=== PATIENT | female | born 1935 | race Caucasian/White ===

== ENCOUNTER 2017-04-07 04:06 | Inpatient (IN) | payer MEDICARE, OTHER ==
--- NOTE | 2017-04-07 04:32 | ED ---
SOB HPI - General Stated Complaint: MOO Time Seen by Provider: 04/07/17 04:08 Source: EMS Mode of arrival: EMS Limitations: altered mental status (There appears to be some underlying dementia or acute delirium.) - History of Present Illness Initial Comments: This patient is an 82-year-old woman sent from [facility] for shortness of breath. Patient reportedly had oxygen saturations in the 70s and was breathing more rapidly. The patient does complain of dyspnea. She is not able to fully characterize how long this is been going on. The patient is denying pain. She denies chest, back, abdomen, head pain or extremity pain MD Complaint: shortness of breath -: hour(s) - Related Data Allergies Allergy/AdvReac Type Severity Reaction Status Date / Time codeine AdvReac Unknown Verified 04/07/17 04:20 NSAIDS (Non-Steroidal AdvReac Unknown Verified 04/07/17 04:20 Anti-Inflamma Penicillins AdvReac Unknown Verified 04/07/17 04:20 Quinolones AdvReac Unknown Verified 04/07/17 04:20 strawberry AdvReac Unknown Verified 04/07/17 04:20 Sulfa (Sulfonamide AdvReac Unknown Verified 04/07/17 04:20 Antibiotics) tree nut [Nut] AdvReac Unknown Verified 04/07/17 04:20 Review of Systems ROS Statement: Those systems with pertinent positive or pertinent negative responses have been documented in the HPI. ROS Other: All systems not noted in ROS Statement are negative. Limitations: ROS unobtainable due to patients medical condition Respiratory: Reports: dyspnea Cardiovascular: Denies: chest pain Gastrointestinal: Denies: abdominal pain Musculoskeletal: Denies: back pain Neurological: Denies: headache Past Medical History Past Medical History: Heart Failure, COPD, CVA/TIA, GERD/Reflux, Hyperlipidemia , Hypertension, Thyroid Disorder History of Any Multi-Drug Resistant Organisms: ESBL Date of last positivie culture/infection: 01/08/17 MDRO Source:: URINE E.COLI Past Surgical History: Orthopedic Surgery Additional Past Surgical History / Comment(s): right below knee amputation Past Psychological History: Anxiety, Depression Smoking Status: Never smoker Past Alcohol Use History: None Reported Past Drug Use History: None Reported General Exam Limitations: no limitations General appearance: alert, in distress (Patient is in mild respiratory distress) , obese Head exam: Present: atraumatic, normocephalic ENT exam: Present: mucous membranes dry Respiratory exam: Present: respiratory distress, rhonchi. Absent: wheezes, rales, stridor Cardiovascular Exam: Present: regular rate, normal rhythm, normal heart sounds. Absent: systolic murmur, diastolic murmur, rubs, gallop GI/Abdominal exam: Present: soft. Absent: tenderness, guarding, rebound Extremities exam: Present: pedal edema, other (Right leg above-knee amputation) Neurological exam: Present: alert. Absent: oriented X3 (Is oriented to person and recognizes she is in the hospital,), motor sensory deficit ( however did not know the date) Skin exam: Present: warm, dry, intact, normal color. Absent: rash Course Vital Signs 04/07/17 04:08 Temperature 97.7 F Pulse Rate 97 Respiratory 26 H Rate Blood Pressure 163/69 O2 Sat by Pulse 88 L Oximetry Medical Decision Making - EKG Data -: EKG Interpreted by Wy EKG shows normal: axis ( approximately. left axis deviation ) Interpretation: LVH (With repolarization abnormality), other (Patient's underlying rhythm appears to be atrial flutter with variable conduction, the rate 104 bpm. there appears to be old it anteroseptal infarct) Disposition Referrals: Rosa M Steward MD [Primary Care Provider] - 1-2 days
[2017-04-07 04:46] LABS: Basophils # (A) 0.1 k/uL (0-0.2); Basophils % (A) 0 %; CH 29.4; CHCM 31.3; Eosinophils # (A) 0.1 k/uL (0-0.7); Eosinophils % (A) 1 %; HCT 35.8 % (34.0-46.0); HGB 11.3 gm/dL (11.4-16.0); Hypochromasia Slight; Luc # (Auto) 0.14; Luc % (Auto) 1; Lymphocytes # (A) 0.4 k/uL (1.0-4.8); Lymphocytes % (A) 2 %; MCH 29.9 pg (25.0-35.0); MCHC 31.6 g/dL (31.0-37.0); MCV 94.6 fL (80.0-100.0); Mean Platelet Volume 7.1; Monocytes # (A) 0.5 k/uL (0-1.0); Monocytes % (A) 3 %; Neutrophils # (A) 17.5 k/uL (1.3-7.7); Neutrophils % (A) 94 %; RBC 3.78 m/uL (3.80-5.40); RDW 15.2 % (11.5-15.5); WBC 18.7 k/uL (3.8-10.6); WBC (Perox) 19.03
[2017-04-07 04:55] LABS: INR 1.3 (<1.2); Partial Thromboplastin Time 24.7 sec (22.0-30.0); Prothrombin Time 12.6 sec (9.0-12.0)
[2017-04-07 05:02] LABS: Amorphous Sediment,Urine Rare /hpf; Appearance,Urine Turbid (Clear); Bilirubin,Urine Negative (Negative); Glucose,Urine (UA) Negative (Negative); Ketones,Urine Negative (Negative); Leukocyte Esterase,Urine Large (Negative); Mucus,Urine Many /hpf; Nitrite,Urine Negative (Negative); PH, Urine 8.5 (5.0-8.0); Particle Count 380168; Protein,Urine 2+ (Negative); RBC,Urine 4 /hpf (0-5); Specific Gravity,Urine 1.014 (1.001-1.035); UA Billing (MACRO vs. MICRO) MICRO; Urobilinogen,Urine <2.0 mg/dL (<2.0); WBC,Urine 79 /hpf (0-5)
[2017-04-07 05:08] LABS: ALT 70 U/L (9-52); AST 99 U/L (14-36); Alkaline Phosphatase 532 U/L (38-126); Anion Gap 9 mmol/L; Blood Urea Nitrogen 21 mg/dL (7-17); Calcium 8.7 mg/dL (8.4-10.2); Carbon Dioxide 32 mmol/L (22-30); Chloride 95 mmol/L (98-107); Glucose 154 mg/dL (74-99); Non-African American GFR(MDRD) >60 (>60 ml/min/1.73 sqM); Potassium 5.4 mmol/L (3.5-5.1); Sodium 136 mmol/L (137-145); Total Bilirubin 1.1 mg/dL (0.2-1.3); Total Protein 7.5 g/dL (6.3-8.2)
[2017-04-07] MEDS: SODIUM CHLORIDE 0.9% 500 ML IV SCH ×3 (05:09→11:37)
--- NOTE | 2017-04-07 05:24 | XR ---
EXAM: XR Chest, 1 View CLINICAL HISTORY: Fever TECHNIQUE: Frontal view of the chest. COMPARISON: No relevant prior studies available. FINDINGS: Lungs: Moderate scattered patchy airspace opacities throughout both lungs, more on the right. Pleural space: Cannot rule out left pleural effusion. No pneumothorax. Heart: Unremarkable. No cardiomegaly. Mediastinum: Unremarkable. Bones/joints: Osteopenia. Moderate degenerative changes. Vasculature: Aorta is calcified. IMPRESSION: Lung findings suggest pneumonia, worse on the right. Followup to resolution is recommended to rule out potential underlying neoplastic/metastatic disease.
[2017-04-07] MEDS ORDERED: AZITHROMYCIN 500 MG in SODIUM CHLORIDE 0.9% 250 ML IVPB STA (05:46)
[2017-04-07] MEDS ORDERED: TOBRAMYCIN PER PHARMACY MISCELLANE PRN (05:46)
[2017-04-07] MEDS ORDERED: PNEUMONIA PROTOCOL UTILIZED 1 EACH MISC PO PRN ×2 (05:46→05:55)
[2017-04-07] MEDS ORDERED: ALBUTEROL NEBULIZED 2.5 MG/3 ML INHALATION PRN (05:55)
[2017-04-07] MEDS: CLINDAMYCIN 600 MG in DEXTROSE 5% IN WATER 50 ML IVPB SCH ×6 (06:02→23:47)
[2017-04-07] MEDS ORDERED: ALBUTEROL NEBULIZED 2.5 MG/3 ML INHALATION STA (06:12)
[2017-04-07] MEDS ORDERED: HEPARIN SODIUM,PORCINE 5,000 UNIT/ML 1 ML VIAL SQ SCH (08:00)
[2017-04-07] MEDS ORDERED: SODIUM CHLORIDE 0.9% IVPB SCH (08:00)
[2017-04-07] MEDS ORDERED: TOBRAMYCIN SULFATE IVPB SCH (08:00)
[2017-04-07] MEDS ORDERED: DOCUSATE 100 MG CAP PO PRN (09:43)
[2017-04-07] MEDS ORDERED: ARTIFICIAL TEARS-HYPROMELLOSE DROPS 15 ML BTL BOTH EYES PRN (09:43)
[2017-04-07] MEDS ORDERED: NON-FORMULARY DRUG (Acetaminophen [Tylenol 8 Hour] 650 MG) PO PRN (09:43)
[2017-04-07] MEDS ORDERED: ACETAMINOPHEN TAB 500 MG TAB PO PRN (09:43)
[2017-04-07] MEDS ORDERED: TALC TOPICAL SCH (09:45)
[2017-04-07] MEDS ORDERED: GLYCERIN TOPICAL SCH (09:45)
[2017-04-07] MEDS ORDERED: [UNRECOGNIZED DRUG - OTHER] TOPICAL SCH (09:45)
[2017-04-07] MEDS ORDERED: ZINC OXIDE TOPICAL SCH (09:45)
[2017-04-07] MEDS ORDERED: SODIUM POLYSTYRENE SULFONATE 15 GM/60 ML BOTTLE PO STA (09:56)
[2017-04-07] MEDS: SODIUM CHLORIDE 0.9% 1,000 ML IV SCH ×2 (11:27→15:03)
[2017-04-07] MEDS: NYSTATIN 100,000 UNIT/GM POWD 15 GM TOPICAL SCH ×2 (11:38→21:51)
[2017-04-07] MEDS: HYDROcodone/APAP 5-325MG 1 EACH TAB PO PRN (13:23)
[2017-04-07] MEDS: ALPRAZolam 0.25 MG TAB PO PRN ×2 (13:24→21:48)
--- NOTE | 2017-04-07 14:22 | P.CRDCN ---
History of Present Illness Consult date: 04/07/17 Reason for Consult (text): atrial flutter Chief complaint: shortness of breath History of present illness: This is a pleasant 82-year-old female who resides at an extended care facility. Presented to the emergency department with complaints of increasingly worsening shortness of breath. She has a known history of CHF, hypertension, GERD, COPD and hyperlipidemia. She also has a prior history of a right BKA and likely history of atrial fibrillation/atrial flutter as she is on Eliquis. Chest x-ray on admission showed bilateral pneumonia worse on the right than the left. Her WBCs are elevated. She has been in atrial flutter with a controlled ventricular response. Laboratory values showed a BUN of 21, creatinine 0.9. One set of troponin has been drawn thus far and is slightly elevated at 0.076. Upon examination, patient is resting in bed. Says she is breathing quite a bit better however remains short of breath. She denies any complaints of chest discomfort or palpitations. She does complain of left lower extremity edema, but has been ongoing for quite some time. Past Medical History Past Medical History: Heart Failure, COPD, CVA/TIA, GERD/Reflux, Hyperlipidemia , Hypertension, Thyroid Disorder History of Any Multi-Drug Resistant Organisms: ESBL Date of last positivie culture/infection: 01/08/17 MDRO Source:: URINE E.COLI Past Surgical History: Orthopedic Surgery Additional Past Surgical History / Comment(s): right below knee amputation Past Psychological History: Anxiety, Depression Smoking Status: Never smoker Past Alcohol Use History: None Reported Past Drug Use History: None Reported Medications and Allergies Home Medications Medication Instructions Recorded Confirmed Type ALPRAZolam [Xanax] 0.25 mg PO Q8H PRN 04/07/17 04/07/17 History Acetaminophen Tab [Tylenol Tab] 500 mg PO Q6H PRN 04/07/17 04/07/17 History Acetaminophen [Tylenol 8 Hour] 650 mg PO Q6H PRN 04/07/17 04/07/17 History Allopurinol [Zyloprim] 100 mg PO DAILY@0900 04/07/17 04/07/17 History Amiodarone [Cordarone] 200 mg PO DAILY@0900 04/07/17 04/07/17 History Apixaban [Eliquis] 5 mg PO BID@0900,2100 04/07/17 08/04/17 History Digoxin [Lanoxin] 125 mcg PO DAILY@59904/07/17 04/07/17 History Diltiazem HCl 60 mg PO TID@0900,1300,209904/07/17 04/07/17 History Docusate [Colace] 100 mg PO Q24H PRN 04/07/17 04/07/17 History Fluticasone Nasal [place] [Flonase 1 spray EA NOSTRIL BID@0900,209904/07/1704/07 History Nasal [place]] Fluticasone/Vilanterol [Breo 1 puff INHALATION RT-DAILY@129904/07/17 04/07/17 History Ellipta 100-25 Mcg Inhaler] Furosemide [Lasix] 20 mg PO DAILY@59904/07/17 04/07/17 History Furosemide [Lasix] 40 mg PO MOWEFR@89904/07/17 04/07/17 History HYDROcodone/APAP 5-325MG [[place] 1 tab PO Q8H PRN 04/07/17 04/07/17 History 5-325] Ipratropium-Albuterol Nebulize 3 ml INHALATION RT-BID@0900,209904/07/17 History [Duoneb 0.5 mg-3 mg/3 ml Soln] Levothyroxine Sodium [Synthroid] 50 mcg PO DAILY@59904/07/17 04/07/17 History Liquitears Solution 2 drops BOTH EYES Q4H PRN 04/07/17 04/07/17 History Magnesium Oxide [Mag-Ox] 400 mg PO BID@0900,209904/07/17 04/07/17 History Miconazole Nitrate [Lotrimin AF 1 applic TOPICAL Q12H 04/07/17 04/07/17 History Powder] Montelukast Sodium [Singulair] 10 mg PO HS@209904/07/17 04/07/17 History Omeprazole [PriLOSEC] 20 mg PO BID@0900,209904/07/17 04/07/17 History Polyethylene Glycol 3350 [Miralax] 17 gm PO Q24H PRN 04/07/17 04/07/17 History Potassium Chloride [Klor-Con 20] 40 meq PO DAILY@0900 04/07/17 04/07/17 History Pravastatin Sodium [Pravachol] 20 mg PO HS@2100 04/07/17 04/07/17 History Pregabalin [Lyrica] 50 mg PO TID@0600,1400,2200 04/07/17 04/07/17 History Sennosides [Senna] 8.6 mg PO DAILY@0900 04/07/17 04/07/17 History Umeclidinium [place] [Incruse 1 puff INHALATION RT-DAILY@0904/07/17 04/07/17 History Ellipta] Zinc/Talc/Glycerin/Distilled Water 1 applic TOPICAL DIRECTED 04/07/17 History guaiFENesin-DM 100-10MG/5ML 10 ml PO Q6H PRN 04/07/17 04/07/17 History [Robitussin DM] Allergies Allergy/AdvReac Type Severity Reaction Status Date / Time codeine Allergy Unknown Verified 04/07/17 07:06 NSAIDS (Non-Steroidal Allergy Unknown Verified 04/07/17 07:06 Anti-Inflamma peanut Allergy Unknown Verified 04/07/17 07:06 Penicillins Allergy Unknown Verified 04/07/17 07:06 Quinolones Allergy Unknown Verified 04/07/17 07:06 strawberry Allergy Unknown Verified 04/07/17 07:06 Sulfa (Sulfonamide Allergy Unknown Verified 04/07/17 07:06 Antibiotics) tree nut [Nut] Allergy Unknown Verified 04/07/17 07:06 seeds Allergy Unknown Uncoded 04/07/17 07:06 Physical Exam Vitals: Vital Signs Temp Pulse Pulse Resp BP BP Pulse Ox 04/07/17 07:28 94 L 04/07/17 07:10 96.9 F L 68 20 104/53 93 L 04/07/17 07:01 97.7 F 81 16 129/60 95 04/07/17 06:49 74 14 129/60 94 L 04/07/17 06:39 88 14 144/60 95 04/07/17 06:38 82 04/07/17 06:23 100 04/07/17 06:07 97.3 F L 112 H 21 151/63 95 04/07/17 05:15 84 23 145/59 95 04/07/17 04:42 26 H 04/07/17 04:37 91 93 L 04/07/17 04:08 97.7 F 97 26 H 163/69 88 L Intake and Output 04/06/17 04/07/17 04/07/17 22:59 06:59 14:59 Intake Total 40 Balance 40 Intake: Intake, IV Titration 40 Amount Sodium Chloride 0.9% 1, 40 000 ml @ 100 mls/hr IV . Q10H [facility] Rx#:[id number] Other: Weight 113.398 kg PHYSICAL EXAMINATION: HEENT: Head is atraumatic, normocephalic. Pupils equal, round. Neck is supple. There is no elevated jugular venous pressure. HEART EXAMINATION: Heart sounds irregularly irregular, S1 and S2 normal with a systolic ejection murmur. CHEST EXAMINATION: Lungs are clear to auscultation and precussion. No chest wall tenderness is noted on palpation or with deep breathing. ABDOMEN: Soft, obese, nontender. Bowel sounds are heard. No organomegaly noted. EXTREMITIES: Diminished peripheral pulses with evidence of 2+ left lower extremity edema and no calf tenderness noted, right BKA noted. NEUROLOGIC patient is awake, alert and oriented x3. . Results 04/07/17 04:30 04/07/17 04:30 Cardiac Enzymes 04/07/17 04/07/17 Range/Units 04:30 04:30 AST 99 H (14-36) U/L Troponin I 0.076 H* (0.000-0.034) ng/mL Coagulation 04/07/17 Range/Units 04:30 PT 12.6 H (9.0-12.0) sec APTT 24.7 (22.0-30.0) sec CBC 04/07/17 Range/Units 04:30 WBC 18.7 H (3.8-10.6) k/uL RBC 3.78 L (3.80-5.40) m/uL Hgb 11.3 L (11.4-16.0) gm/dL Hct 35.8 (34.0-46.0) % Plt Count 216 (150-450) k/uL Comprehensive Metabolic Panel 04/07/17 Range/Units 04:30 Sodium 136 L (137-145) mmol/L Potassium 5.4 H (3.5-5.1) mmol/L Chloride 95 L (98-107) mmol/L Carbon Dioxide 32 H (22-30) mmol/L BUN 21 H (7-17) mg/dL Creatinine 0.90 (0.52-1.04) mg/dL Glucose 154 H (74-99) mg/dL Calcium 8.7 (8.4-10.2) mg/dL AST 99 H (14-36) U/L ALT 70 H (9-52) U/L Alkaline Phosphatase 532 H (38-126) U/L Total Protein 7.5 (6.3-8.2) g/dL Albumin 3.0 L (3.5-5.0) g/dL Current Medications Generic Name Dose Route Start Last Admin Trade Name Freq PRN Reason Stop Dose Admin Acetaminophen 500 mg 04/07/17 09:43 Tylenol Tab PO Q6H PRN Fever Hydrocodone Bitart/Acetaminophen 1 each 04/07/17 09:43 04/07/17 13:23 [place] 5-325 PO 1 each Q8H PRN Administration Pain Albuterol Sulfate 2.5 mg 04/07/17 05:55 04/07/17 06:22 Ventolin Nebulized INHALATION 2.5 mg RT-Q4H PRN Administration Shortness Of Breath Or Wheezing Albuterol/Ipratropium 3 ml 04/07/17 21:00 Duoneb 0.5 Mg-3 Mg/3 Ml Soln INHALATION RT-BID@0900,2100 [facility] Allopurinol 100 mg 04/08/17 09:00 Zyloprim PO DAILY@0900 [facility] Alprazolam 0.25 mg 04/07/17 09:43 04/07/17 13:24 Xanax PO 0.25 mg Q8H PRN Administration Anxiety Amiodarone HCl 200 mg 04/08/17 09:00 Cordarone PO DAILY@0900 [facility] Apixaban 5 mg 04/07/17 21:00 Eliquis PO BID@0900,2100 [facility] Artificial Tears 2 drops 04/07/17 09:43 Artificial Tear Drops BOTH EYES Q4H PRN dry eyes Digoxin 125 mcg 04/08/17 06:00 Lanoxin PO DAILY@0600 [facility] Diltiazem HCl 60 mg 04/07/17 13:00 Cardizem Oral PO TID@0900,1300,2100 [facility] Docusate Sodium 100 mg 04/07/17 09:43 Colace PO Q24H PRN Constipation Fluticasone Propionate 1 spray 04/07/17 21:00 Flonase Nasal [place] EA NOSTRIL BID@0900,2100 [facility] Furosemide 40 mg 04/10/17 09:00 Lasix PO MOWEFR@0900 [facility] Clindamycin Phosphate 600 mg/ 54 mls @ 100 mls/hr 04/07/17 08:00 04/07/17 06: 02 Dextrose/Water IVPB 04/17/17 08:01 100 mls/hr Q8HR [facility] Administration Sodium Chloride 1,000 mls @ 100 mls/hr 04/07/17 06:00 04/07/17 11:27 Saline 0.9% IV Not Given .Q10H [facility] Tobramycin Sulfate 170 mg/ 104.25 mls @ 104.25 mls/hr 04/07/17 08:00 11:37 Sodium Chloride IVPB 104.25 mls/hr Q24H [facility] Administration Levothyroxine Sodium 50 mcg 04/08/17 06:00 Synthroid PO DAILY@0600 [facility] Magnesium Oxide 400 mg 04/07/17 21:00 Mag-Ox PO BID@0900,2100 [facility] Miscellaneous Information 1 each 04/07/17 05:46 Pharmacy To Dose Tobramycin MISCELLANE DIRECTED PRN Per Protocol Miscellaneous Information 1 each 04/07/17 05:55 Pneumonia Protocol Utilized PO ONCE PRN Per Protocol Montelukast Sodium 10 mg 04/07/17 21:00 Singulair PO HS@2100 [facility] Non-Formulary Medication 1 applic 04/07/17 09:45 Zinc/Talc/Glycerin/Distilled Water TOPICAL DIRECTED [facility] Nystatin 1 applic 04/07/17 09:45 04/07/17 11:38 Mycostatin Powder TOPICAL 1 applic Q12H [facility] Administration Pantoprazole Sodium 40 mg 04/07/17 21:00 Protonix PO BID@0900,2100 [facility] Pravastatin Sodium 20 mg 04/07/17 21:00 Pravachol PO HS@2100 [facility] Pregabalin 50 mg 04/07/17 14:00 Lyrica PO TID@0600,1400,2200 [facility] Tiotropium [place] 1 puff 04/08/17 09:00 Spiriva INHALATION RT-DAILY@0900 [facility] Intake and Output 04/06/17 04/07/17 04/07/17 22:59 06:59 14:59 Intake Total 40 Balance 40 Intake: Intake, IV Titration 40 Amount Sodium Chloride 0.9% 1, 40 000 ml @ 100 mls/hr IV . Q10H [facility] Rx#:[id number] Other: Weight 113.398 kg 04/07/17 04:30 04/07/17 04:30 EKG Interpretations (text) Atrial flutter Assessment and Plan Plan: Assessment and plan #1 atrial flutter, likely chronic, patient is anticoagulated #2 history of congestive heart failure, ejection fraction unknown at this time. #3 bilateral pneumonia #4 elevated troponin, likely secondary to oxygen supply demand mismatch, awaiting second third set. #5 COPD From cardiology's perspective, we will obtain a 2-D echo with Doppler to assess LV systolic function. We will also obtain a BNP. Await second third troponin. Further recommendations to follow. [employer] note has been reviewed, I agree with a documented findings and plan of care. Patient was seen and examined.
[2017-04-07] MEDS: DILTIAZEM ORAL 60 MG TAB PO SCH ×2 (14:56→21:45)
[2017-04-07] MEDS: PREGABALIN 50 MG CAP PO SCH ×2 (15:03→21:48)
--- NOTE | 2017-04-07 16:12 | CONS ---
This is a very pleasant 82-year-old female patient who resides at [facility] the [facility]. She was apparently brought into the emergency room by EMS for shortness of breath/difficulty breathing. The patient apparently complained of shortness of breath for a day or so prior to admission. Her saturations were found to be in the 70's. She was breathing more rapidly. The patient denied any significant cough. No phlegm production. No chest pain, no back pain, no headache. No nausea, vomiting or diarrhea. The patient is currently in the hospital on 6 . Her chest x-ray apparently shows diffuse bilateral infiltrates. ALLERGIES: CODEINE, NSAIDS, PENICILLIN, QUINOLONES, STRAWBERRIES, SULFA AND TREE NUTS. MEDICAL HISTORY: Includes heart failure, COPD, CVA, GERD, hyperlipidemia, hypertension, hypothyroidism. The patient also has a history of previous E. coli urinary tract infection. SURGICAL HISTORY: Includes a right below knee amputation and multiple orthopedic procedures. SOCIAL HISTORY: Negative for tobacco. No alcohol use. No illicit drug use. CURRENT HOME MEDICATIONS: Include Robitussin, topical preparation ( ) solution, Xanax, MiraLAX, [place], Colace, Tylenol 8 hour, Lyrica, diltiazem, omeprazole, magnesium, DuoNeb, Flonase nasal spray, Senna, pravastatin, Eliquis , potassium, Singulair, levothyroxine, Lasix, Incruse, Brio, digoxin, amiodarone and allopurinol. REVIEW OF SYSTEMS: CONSTITUTIONAL: Negative. NEUROLOGIC: Negative. HEENT: Negative. CARDIOVASCULAR: Negative. PULMONARY: Shortness of breath. GI/: Negative. RHEUMATOLOGIC/IMMUNOLOGIC: Negative. ENDOCRINOLOGIC: Negative. DERMATOLOGIC: Negative. Current vital signs are reviewed. Temperature 96.9, heart rate 68, respiratory rate 20, blood pressure 104/53, mean 70, 4 liter saturation 94%. Appears in no acute distress. HEENT: Grossly unremarkable. Mucous membranes are moist. NECK: Supple. Full range of motion. No adenopathy or thyromegaly. CARDIOVASCULAR: Reveals regular rhythm and rate. Heart sounds are distant. LUNGS: Reveal some coarse rhonchi. Breath sounds are diminished. No expiratory wheezes. No crackles. ABDOMEN: Obese. Bowel sounds are heard. EXTREMITIES: Reveal some edema in the left lower extremity. It is 1+ and pitting. On the right side she has a right amputation. SKIN: Without rash except for some chronic venous stasis changes in the left lower extremity. NEUROLOGIC: Brief but nonfocal. She had a chest x-ray done. The chest x-ray shows diffuse bilateral infiltrates , more on the right than on the left side, possibly consistent with pneumonia or ARDS. Also, could be component of heart failure. Labs are reviewed. White count is 18.7, hemoglobin 11.3, hematocrit 35.8, platelet count 360,000. PT and INR was 12.6 and 1.3, PTT 24.7. Sodium 136, potassium 5.4, chloride 95, CO2 of 32. BUN and creatinine were 21 and 0.9. AST 99, ALT 70, alkaline phosphatase 532. Troponin 0.076 and terminal pro-BNP is 4120. Urine is turbid. The pH is 8.5. Urine blood is moderate. Large leukocyte esterase, 79 WBCs. ASSESSMENT: 1. Shortness of breath with diffuse bilateral infiltrates. Could be multifactorial, in part related to underlying fluid overload and/or pneumonia. 2. History of congestive heart failure. 3. History of chronic obstructive pulmonary disease. 4. History of cerebrovascular accident. 5. History of gastroesophageal reflux disease. 6. History of hyperlipidemia. 7. Hypertension. 8. Hypothyroidism. PLAN: The patient's medications were reviewed. Please see my orders. Additional recommendations and suggestions are forthcoming. Prognosis is guarded. X-ray in the morning. MTDD
--- NOTE | 2017-04-07 17:26 | ECHOF ---
Referral Reason:A flutter, elevated troponin MEASUREMENTS -------- HEIGHT: 160.0 cm WEIGHT: 113.4 kg BP: 104/53 RVIDd: 3.0 cm (< 3.3) IVSd: 1.3 cm (0.6 - 1.1) LVIDd: 4.5 cm (3.9 - 5.3) LVPWd: 1.4 cm (0.6 - 1.1) IVSs: 1.7 cm LVIDs: 3.2 cm LVPWs: 1.8 cm LA Diam: 4.4 cm (2.7 - 3.8) Ao Diam: 3.0 cm (2.0 - 3.7) AV Cusp: 1.5 cm (1.5 - 2.6) MV EXCURSION: 6.594 mm (> 18.000) MV EF SLOPE: 69 mm/s (70 - 150) EPSS: 1.1 cm AV maxP.10 mmHg AV meanP.81 mmHg RAP: 15.00 mmHg RVSP: 59.95 mmHg FINDINGS -------- This was a technically difficult study with suboptimal views. The left ventricular size is normal. There is moderate concentric left ventricular hypertrophy. Overall left ventricular systolic function is normal with, an EF between 55 - 60 %. The right ventricle is normal in size. The left atrium is moderately dilated. The right atrium is normal in size. 1.5mg of Definity was utilized for enhancement of images There is moderate to severe aortic valve sclerosis. There is mild aortic regurgitation. There is moderate aortic stenosis present. Peak/mean gradient across the Aortic Valve is 56.10mmHg / 32.81mmHg. The mitral valve leaflets are moderately thickened. Moderate mitral annular calcification present. Mild mitral regurgitation is present. The peak and mean MV gradients are 17.67mmHg 5.95mmHg as measured by doppler. Mild tricuspid regurgitation present. There is severe pulmonary hypertension. The right ventricular systolic pressure, as measured by Doppler, is 59.95mmHg. Trace/mild (physiologic) pulmonic regurgitation. The aortic root size is normal. Normal inferior vena cava with less than 50% inspiratory collapse consistent with estimated right atrial pressure of 15 mmHg. There is no pericardial effusion. CONCLUSIONS -------- 1. This was a technically difficult study with suboptimal views. 2. There is mild aortic regurgitation. 3. There is moderate aortic stenosis present. 4. Peak/mean gradient across the Aortic Valve is 56.10mmHg / 32.81mmHg. 5. The mitral valve leaflets are moderately thickened. 6. Moderate mitral annular calcification present. 7. Mild mitral regurgitation is present. 8. The peak and mean MV gradients are 17.67mmHg 5.95mmHg as measured by doppler. 9. Mild tricuspid regurgitation present. 10. There is severe pulmonary hypertension. 11. The right ventricular systolic pressure, as measured by Doppler, is 59.95mmHg. 12. The left ventricular size is normal. 13. Trace/mild (physiologic) pulmonic regurgitation. 14. The aortic root size is normal. 15. Normal inferior vena cava with less than 50% inspiratory collapse consistent with estimated right atrial pressure of 15 mmHg. 16. There is no pericardial effusion. 17. There is moderate concentric left ventricular hypertrophy. 18. Overall left ventricular systolic function is normal with, an EF between 55 - 60 %. 19. The right ventricle is normal in size. 20. The left atrium is moderately dilated. 21. The right atrium is normal in size. 22. 1.5mg of Definity was utilized for enhancement of images 23. There is moderate to severe aortic valve sclerosis. CLOTHING MANAGER: Vee Skaggs RDCS
[2017-04-07] MEDS: IPRATROPIUM-ALBUTEROL 3 ML NEB INHALATION SCH (21:01)
[2017-04-07] MEDS: MONTELUKAST 10 MG TAB PO SCH (21:45)
[2017-04-07] MEDS: PRAVASTATIN SODIUM 20 MG TAB PO SCH (21:45)
[2017-04-07] MEDS: PANTOPRAZOLE 40 MG TABLET PO SCH (21:45)
[2017-04-07] MEDS: FUROSEMIDE 10 MG/ML 10 ML VIAL IV SCH (21:45)
[2017-04-07] MEDS: APIXABAN 5 MG TAB PO SCH (21:46)
[2017-04-07] MEDS: MAGNESIUM OXIDE 400 MG TAB PO SCH (21:46)
[2017-04-07] MEDS: FLUTICASONE 50MCG/SPRAY NASAL 16GM EA NOSTRIL SCH (21:48)
[2017-04-08] MEDS: HYDROcodone/APAP 5-325MG 1 EACH TAB PO PRN ×2 (01:23→15:55)
[2017-04-08] MEDS: ALPRAZolam 0.25 MG TAB PO PRN ×2 (03:07→23:11)
[2017-04-08 06:19] LABS: Basophils # (A) 0.1 k/uL (0-0.2); Basophils % (A) 0 %; CH 29.7; CHCM 30.7; Eosinophils # (A) 0.2 k/uL (0-0.7); Eosinophils % (A) 2 %; HCT 32.4 % (34.0-46.0); HDW 2.83; HGB 9.9 gm/dL (11.4-16.0); Hypochromasia Moderate; Luc # (Auto) 0.18; Luc % (Auto) 1; Lymphocytes # (A) 0.5 k/uL (1.0-4.8); Lymphocytes % (A) 4 %; MCH 29.6 pg (25.0-35.0); MCHC 30.5 g/dL (31.0-37.0); MCV 97.3 fL (80.0-100.0); Mean Platelet Volume 7.8; Monocytes # (A) 0.5 k/uL (0-1.0); Monocytes % (A) 4 %; Neutrophils # (A) 11.5 k/uL (1.3-7.7); Neutrophils % (A) 89 %; RBC 3.33 m/uL (3.80-5.40); RDW 15.6 % (11.5-15.5); WBC (Perox) 13.18
[2017-04-08 06:33] LABS: Anion Gap 6 mmol/L; Blood Urea Nitrogen 21 mg/dL (7-17); Calcium 8.2 mg/dL (8.4-10.2); Carbon Dioxide 35 mmol/L (22-30); Chloride 95 mmol/L (98-107); Glucose 108 mg/dL (74-99); Non-African American GFR(MDRD) >60 (>60 ml/min/1.73 sqM); Potassium 3.9 mmol/L (3.5-5.1); Sodium 136 mmol/L (137-145)
[2017-04-08] MEDS: DIGOXIN 125 MCG TAB PO SCH (07:02)
[2017-04-08] MEDS: LEVOTHYROXINE 50 MCG TAB PO SCH (07:02)
[2017-04-08] MEDS: SODIUM CHLORIDE 0.9% 1,000 ML IV SCH ×2 (07:02→15:47)
[2017-04-08] MEDS: PREGABALIN 50 MG CAP PO SCH ×3 (07:03→20:15)
[2017-04-08] MEDS: IPRATROPIUM-ALBUTEROL 3 ML NEB INHALATION SCH ×2 (07:48→19:49)
--- NOTE | 2017-04-08 07:55 | HP ---
CHIEF COMPLAINT: Altered mental status. This is an 82-year-old female who presented to the emergency department with generalized weakness and fatigue. Patient is a poor historian but was able to say that today is April 07. Patient was not able to tell the name of the hospital. Patient currently said that she feels slightly better than before. Reported no cough but complained of shortness of breath. Patient said that her oxygen was found to be low in the emergency and then emergency reported it down to 70. Patient responded well to nasal cannula and then did not need BiPAP for more than 15 minutes according to the nursing notes. Patient currently alert, awake and following commands denying any abdominal pain, chest pain, nausea, vomiting, dizziness, light-headedness or blurry vision. ALLERGIES: 1. CODEINE. 2. NSAIDS. 3. PENICILLIN. 4. QUINOLONE. 5. STRAWBERRY. 6. SULFA. 7. NUTS. REVIEW OF SYSTEMS: All 14 systems reviewed and negative except as above. PAST MEDICAL AND SURGICAL HISTORY: 1. Congestive heart failure. 2. Chronic obstructive pulmonary disease. 3. History of cerebrovascular accident transient ischemic attack. 4. Gastroesophageal reflux disease. 5. Hyperlipidemia. 6. Hypertension. 7. Hypothyroidism. 8. History of ESBL in the urine. 9. Right above-knee amputation. 10. Anxiety. 11. Depression. SOCIAL HISTORY: Denied tobacco, alcohol or drug abuse. She is a resident of [facility]. PHYSICAL EXAMINATION: VITAL SIGNS: 97.7, 97, 26, 163/69, saturation 98% on 2 L nasal cannula. GENERAL: Morbidly obese in her stated age, in no acute distress. HEENT: Atraumatic, normocephalic, PERRLA. LUNGS: Distant sounds bilaterally due to body habitus, heart murmur, S1, S2. ABDOMEN: Soft, nontender, positive bowel sounds in all 4 quadrants. LOWER EXTREMITIES: Right above-knee amputation, left lower extremity with chronic edema according to the patient. NEURO: Cranial nerves 2 through 12 intact. No focal deficits. SKIN: No rash. Imaging and labs revealed EKG showed left axis deviation. CBC showed white blood count 18.7, hemoglobin 11.3, platelet normal, PT, PTT, INR within acceptable range. Sodium 136, potassium 5.4, glucose 154, troponin was elevated at 0.076 and repeat is 0.072. UA was positive. ASSESSMENT AND PLAN: 1. Altered mental status likely secondary to pneumonia. I would like to continue wide spectrum antibiotics. Will continue following up on sputum culture results. Continue with oxygen and aggressive breathing treatment. 2. Acute chronic respiratory failure with hypoxia. We will continue alternative in between nasal cannula to maintain oxygenation above 92%. No history of COPD reported by patient on prior record. 3. Elevated troponin, likely demand ischemia. Cardiology was consulted. Will continue with protective medication and final Cardiology recommendation. 4. Atrial flutter, chronic. We will continue with current regimen of anticoagulation. Continue with ( ) controlling agent. 5. Hyperkalemia. Will give Kayexalate 30 gm and repeat electrolytes in the morning. 6. Hyponatremia. Will continue monitoring. 7. Anemia of chronic disease. Will continue monitoring. 8. Leukocytosis likely related to #1. Will continue monitoring. 9. Urinary tract infection. Will obtain urine culture as patient has history of ESBL and follow up on culture results. 7. Will have patient on heparin for deep venous thrombosis prophylaxis. MTDD
[2017-04-08] MEDS ORDERED: NON-FORMULARY DRUG (Umeclidinium Bromide [Incruse Ellipta] 1 PUFF) INHALATION SCH (09:00)
[2017-04-08] MEDS ORDERED: TIOTROPIUM 18 MCG/PUFF INHALER INHALATION SCH (09:00)
[2017-04-08] MEDS: PANTOPRAZOLE 40 MG TABLET PO SCH ×2 (09:19→20:08)
[2017-04-08] MEDS: TOBRAMYCIN SULFATE 120 MG in SODIUM CHLORIDE 0.9% 100 ML IVPB SCH (09:19)
[2017-04-08] MEDS: DILTIAZEM ORAL 60 MG TAB PO SCH ×3 (09:19→20:08)
[2017-04-08] MEDS: MAGNESIUM OXIDE 400 MG TAB PO SCH ×2 (09:20→20:08)
[2017-04-08] MEDS: APIXABAN 5 MG TAB PO SCH ×2 (09:20→20:08)
[2017-04-08] MEDS: AMIODARONE 200 MG TAB PO SCH (09:20)
[2017-04-08] MEDS: ALLOPURINOL 100 MG TAB PO SCH (09:20)
[2017-04-08] MEDS: FUROSEMIDE 10 MG/ML 10 ML VIAL IV SCH ×2 (09:21→20:08)
[2017-04-08] MEDS: NYSTATIN 100,000 UNIT/GM POWD 15 GM TOPICAL SCH ×2 (09:22→20:08)
[2017-04-08] MEDS: FLUTICASONE 50MCG/SPRAY NASAL 16GM EA NOSTRIL SCH ×2 (10:07→20:08)
--- NOTE | 2017-04-08 10:31 | P.PN ---
Subjective Principal diagnosis: CHF/A. fib This is an 82-year-old female patient with a past medical history significant for history of CHF, chronic atrial fibrillation, hypertension, and dyslipidemia who was transferred from an extended care facility to the emergency room with worsening exertional dyspnea. She was diagnosed with congestive heart failure exacerbation and she was started on Lasix IV. Also upon presentation, she was in A. fib/atrial flutter with RVR. I'll follow-up with the patient today, shortness of breath is a slightly better. She has been maintaining normal heart rate. She underwent an echo, the wound which showed normal LV function with evidence of moderate aortic stenoses. Objective - Vital Signs Vital signs: Vital Signs Temp 97.3 F L 04/08/17 08:00 Pulse 96 04/08/17 08:07 Resp 20 04/08/17 08:00 BP 137/60 04/08/17 08:00 Pulse Ox 96 04/08/17 08:00 Intake & Output 04/07/17 04/08/17 04/08/17 18:59 06:59 18:59 Intake Total 280 50 250 Output Total 350 1125 Balance -70 -1075 250 Weight 121.5 kg Intake: Intake, IV Titration 40 50 Amount Clindamycin 600 mg In 50 Dextrose 5% in Water 50 ml @ 100 mls/hr IVPB Q8HR HCARISSA Rx#:[id number] Sodium Chloride 0.9% 1, 40 000 ml @ 100 mls/hr IV . Q10H CHARISSA Rx#:[id number] Oral 240 250 Output: Urine 350 1125 Uretheral (Payton) 1125 Other: Voiding Method Indwelling Catheter Indwelling Catheter Indwelling Catheter - Constitutional General appearance: Present: mild distress - Respiratory Respiratory: bilateral: diminished - Cardiovascular Rhythm: irregularly irregular Heart sounds: normal: S1, S2 - Labs CBC & Chem 7: 04/08/17 05:41 04/08/17 05:41 Labs: Abnormal Lab Results - Last 24 Hours (Table) 04/07/17 04/07/17 04/08/17 Range/Units 15:00 20:50 05:41 WBC 13.0 H (3.8-10.6) k/uL RBC 3.33 L (3.80-5.40) m/uL Hgb 9.9 L (11.4-16.0) gm/dL Hct 32.4 L (34.0-46.0) % MCHC 30.5 L (31.0-37.0) g/dL RDW 15.6 H (11.5-15.5) % Neutrophils # 11.5 H (1.3-7.7) k/uL Lymphocytes # 0.5 L (1.0-4.8) k/uL Sodium (137-145) mmol/L Chloride (98-107) mmol/L Carbon Dioxide (22-30) mmol/L BUN (7-17) mg/dL Glucose (74-99) mg/dL Calcium (8.4-10.2) mg/dL Troponin I 0.072 H* 0.068 H* (0.000-0.034) ng/mL 04/08/17 Range/Units 05:41 WBC (3.8-10.6) k/uL RBC (3.80-5.40) m/uL Hgb (11.4-16.0) gm/dL Hct (34.0-46.0) % MCHC (31.0-37.0) g/dL RDW (11.5-15.5) % Neutrophils # (1.3-7.7) k/uL Lymphocytes # (1.0-4.8) k/uL Sodium 136 L (137-145) mmol/L Chloride 95 L (98-107) mmol/L Carbon Dioxide 35 H (22-30) mmol/L BUN 21 H (7-17) mg/dL Glucose 108 H (74-99) mg/dL Calcium 8.2 L (8.4-10.2) mg/dL Troponin I (0.000-0.034) ng/mL Microbiology - Last 24 Hours (Table) 04/07/17 04:30 Blood Culture - Preliminary Blood No Growth after 24 hours 04/07/17 04:48 Urine Culture - Preliminary Urine,Catheterized Assessment and Plan Plan: This is a pleasant 82-year-old female patient with known CHF, atrial fibrillation, as well as multiple comorbid conditions who was transferred from an extended care facility to the hospital with congestive heart failure. The echocardiogram showed normal LV function with evidence of moderate aortic stenosis. I will keep the patient on the current above dose of Lasix IV which is 60 mg twice a day. Continue monitor the kidney function and electrolytes. Continue following up with the patient.
[2017-04-08] MEDS: CLINDAMYCIN 600 MG in DEXTROSE 5% IN WATER 50 ML IVPB SCH ×6 (11:07→23:08)
--- NOTE | 2017-04-08 12:40 | XR ---
EXAMINATION TYPE: XR chest 2V DATE OF EXAM: 04/08/2017 COMPARISON: Chest x-ray from yesterday HISTORY: Asthma with shortness of breath per patient. Pneumonia per order. TECHNIQUE: Frontal and lateral views of the chest are obtained. FINDINGS: And osseous structures remain demineralized. Persistent cardiomegaly with atherosclerotic thoracic aorta. There is persistent multifocal bilateral opacities with relative sparing of left uppe r lobe. Lateral view is suboptimal due to patient's large body habitus. No large effusions or pneumot horax is clearly seen. IMPRESSION: Cardiomegaly with bilateral multifocal edema and/or infiltrates. Consider CHF exacerbati on versus multifocal infectious process. No significant change from 1 day earlier.
--- NOTE | 2017-04-08 15:57 | P.PN ---
Subjective This is an 82-year-old female with a previous medical history significant for hypertension and hypertensive cardiovascular disease, chronic diastolic heart failure, history of morbid obesity, history of atrial fibrillation, patient was transferred from [facility] the [place] yesterday and her the care of Dr. Steward because of increased shortness breath with increased swelling in the left lower extremity, patient also did have a history of right above-knee amputation as well as on, patient was admitted to the hospital because of acute diastolic heart failure and she was started on Lasix 60 minute gram IV push every 12 hours and monitoring her input and output and daily weight. 04/08: Today the patient is feeling a lot better she denies any chest pain she is less short of breath, she is diuresing very well through the Payton catheter, she denies any abdominal pain, nausea, vomiting, her troponin was slightly elevated secondary to demand ischemia without any evidence of acute coronary syndrome. Objective - Vital Signs Vital signs: Vital Signs Temp 97.6 F 04/08/17 03:54 Pulse 96 04/08/17 08:07 Resp 22 04/08/17 03:54 BP 167/66 04/08/17 03:54 Pulse Ox 98 04/08/17 03:54 Intake & Output 04/07/17 04/08/17 04/08/17 18:59 06:59 18:59 Intake Total 280 50 Output Total 350 1125 Balance -70 -1075 Weight 121.5 kg Intake: Intake, IV Titration 40 50 Amount Clindamycin 600 mg In 50 Dextrose 5% in Water 50 ml @ 100 mls/hr IVPB Q8HR CHARISSA Rx#:[id number] Sodium Chloride 0.9% 1, 40 000 ml @ 100 mls/hr IV . Q10H CHARISSA Rx#:[id number] Oral 240 Output: Urine 350 1125 Uretheral (Payton) 1125 Other: Voiding Method Indwelling Catheter Indwelling Catheter - Constitutional General appearance: Present: mild distress, obese - EENT Eyes: Present: anicteric sclerae, EOMI, PERRLA, normal appearance. Absent: ptosis, scleral icterus ENT: Present: hard of hearing, NA/AT, normal oropharynx. Absent: thrush Ears: bilateral: normal - Neck Neck: Present: normal ROM. Absent: lymphadenopathy, rigidity, stridor, thyromegaly Carotids: bilateral: upstroke normal Thyroid: bilateral: normal size - Respiratory Respiratory: bilateral: diminished, rales, rhonchi, wheezing, prolonged expiration, negative: dullness - Cardiovascular Rhythm: irregularly irregular Heart sounds: normal: S1, S2 Abnormal Heart Sounds: Present: systolic murmur. Absent: rub, click - Gastrointestinal General gastrointestinal: Present: distended, normal bowel sounds, soft. Absent : splenomegaly, tenderness, umbilical hernia, ventral hernia - Integumentary Integumentary: Present: normal, normal turgor - Neurologic Neurologic: Absent: CNII-XII intact - Musculoskeletal Musculoskeletal: Present: generalized weakness, strength equal bilaterally - Psychiatric Psychiatric: Present: A&O x's 3, appropriate affect, intact judgment & insight - Labs CBC & Chem 7: 04/08/17 05:41 04/08/17 05:41 Labs: Abnormal Lab Results - Last 24 Hours (Table) 04/07/17 04/07/17 04/08/17 Range/Units 15:00 20:50 05:41 WBC 13.0 H (3.8-10.6) k/uL RBC 3.33 L (3.80-5.40) m/uL Hgb 9.9 L (11.4-16.0) gm/dL Hct 32.4 L (34.0-46.0) % MCHC 30.5 L (31.0-37.0) g/dL RDW 15.6 H (11.5-15.5) % Neutrophils # 11.5 H (1.3-7.7) k/uL Lymphocytes # 0.5 L (1.0-4.8) k/uL Sodium (137-145) mmol/L Chloride (98-107) mmol/L Carbon Dioxide (22-30) mmol/L BUN (7-17) mg/dL Glucose (74-99) mg/dL Calcium (8.4-10.2) mg/dL Troponin I 0.072 H* 0.068 H* (0.000-0.034) ng/mL 04/08/17 Range/Units 05:41 WBC (3.8-10.6) k/uL RBC (3.80-5.40) m/uL Hgb (11.4-16.0) gm/dL Hct (34.0-46.0) % MCHC (31.0-37.0) g/dL RDW (11.5-15.5) % Neutrophils # (1.3-7.7) k/uL Lymphocytes # (1.0-4.8) k/uL Sodium 136 L (137-145) mmol/L Chloride 95 L (98-107) mmol/L Carbon Dioxide 35 H (22-30) mmol/L BUN 21 H (7-17) mg/dL Glucose 108 H (74-99) mg/dL Calcium 8.2 L (8.4-10.2) mg/dL Troponin I (0.000-0.034) ng/mL Microbiology - Last 24 Hours (Table) 04/07/17 04:30 Blood Culture - Preliminary Blood No Growth after 24 hours 04/07/17 04:48 Urine Culture - Preliminary Urine,Catheterized Assessment and Plan Plan: Assessment and plan: 1. Acute diastolic heart failure. Continue patient on Lasix 60 mg IV push every 12 hours, monitor input and output and daily weight, monitor the patient' s electrolytes, magnesium, echocardiogram was done and that showed moderate aortic valve stenosis with aortic regurgitation and mild mitral regurgitation with a normal ejection fraction 55-60% with moderate concentric left ventricular hypertrophy. 2. Atrial fibrillation. Continue patient on Eliquis 5 mg orally twice every day, Cardizem 60 mg orally 3 times every day, amiodarone 200 mg orally once every day. 3. Acute hypoxemic respiratory failure secondary to bibasilar pneumonia with acute diastolic heart failure we'll continue treatment as in Paragraph #1 plus continue the clindamycin and tobramycin, sputum culture, blood culture, pulmonary consultation and cardiology consultation. 4. UTI with sepsis. Continue patient on clindamycin as well as tobramycin, check urine culture. 5. Hypertension and hypertensive cardiovascular disease. Continue patient on Cardizem 60 mg orally 3 times every day. 6. History of CVA. Stable at this point in time. 7. Hyperlipidemia. Continue pravastatin 20 mg orally once every day. 8. Hypothyroidism. Continue Synthroid 50 mitral gram orally once every day. 9. Peripheral neuropathy. Continue Lyrica 75 mg orally twice every day. 10. Post right [id number] amputation. Stable at this time. 11. Gout. Continue allopurinol 100 mg orally once every day. 12. DVT prophylaxis. Currently on Eliquis. 13. GI prophylaxis. Continue PPI. 14. Prognosis very guarded.
[2017-04-08] MEDS: PRAVASTATIN SODIUM 20 MG TAB PO SCH (20:08)
[2017-04-08] MEDS: MONTELUKAST 10 MG TAB PO SCH (20:08)
[2017-04-09] MEDS: TOBRAMYCIN SULFATE 120 MG in SODIUM CHLORIDE 0.9% 100 ML IVPB SCH ×2 (00:11→16:53)
[2017-04-09] MEDS: SODIUM CHLORIDE 0.9% 1,000 ML IV SCH ×2 (02:51→08:01)
[2017-04-09] MEDS: DIGOXIN 125 MCG TAB PO SCH (06:14)
[2017-04-09] MEDS: PREGABALIN 50 MG CAP PO SCH ×3 (06:14→21:59)
[2017-04-09] MEDS: LEVOTHYROXINE 50 MCG TAB PO SCH (06:15)
[2017-04-09 07:13] LABS: Basophils % (A) 0 %; CH 29.8; CHCM 31.1; Eosinophils # (A) 0.5 k/uL (0-0.7); Eosinophils % (A) 5 %; HDW 2.85; HGB 9.7 gm/dL (11.4-16.0); Hypochromasia Slight; Luc # (Auto) 0.15; Luc % (Auto) 2; Lymphocytes # (A) 0.8 k/uL (1.0-4.8); Lymphocytes % (A) 8 %; MCHC 30.1 g/dL (31.0-37.0); MCV 96.3 fL (80.0-100.0); Monocytes # (A) 0.5 k/uL (0-1.0); Monocytes % (A) 5 %; Neutrophils # (A) 7.6 k/uL (1.3-7.7); Neutrophils % (A) 80 %; RBC 3.33 m/uL (3.80-5.40); RDW 15.7 % (11.5-15.5); WBC 9.5 k/uL (3.8-10.6); WBC (Perox) 9.83
[2017-04-09 07:31] LABS: ALT 47 U/L (9-52); AST 51 U/L (14-36); Alkaline Phosphatase 365 U/L (38-126); Blood Urea Nitrogen 20 mg/dL (7-17); Chloride 93 mmol/L (98-107); Glucose 76 mg/dL (74-99); Magnesium 1.7 mg/dL (1.6-2.3); Non-African American GFR(MDRD) >60 (>60 ml/min/1.73 sqM); Potassium 3.3 mmol/L (3.5-5.1); Sodium 138 mmol/L (137-145); Total Bilirubin 0.5 mg/dL (0.2-1.3); Total Protein 6.5 g/dL (6.3-8.2)
[2017-04-09] MEDS: IPRATROPIUM-ALBUTEROL 3 ML NEB INHALATION SCH ×2 (07:35→19:48)
[2017-04-09 07:39] LABS: Anion Gap 6 mmol/L; Carbon Dioxide 39 mmol/L (22-30)
[2017-04-09] MEDS: CLINDAMYCIN 600 MG in DEXTROSE 5% IN WATER 50 ML IVPB SCH ×6 (08:00→23:48)
[2017-04-09] MEDS: ALPRAZolam 0.25 MG TAB PO PRN ×3 (08:13→23:51)
--- NOTE | 2017-04-09 08:38 | PN ---
This is patient we saw yesterday in consultation. She is 82. She came in with complaints of shortness of breath with diffuse bilateral infiltrates which could be related to underlying pneumonia and/or CHF, her BNP was elevated at over 4000. The patient seems to be doing relatively well today. She went for an X-ray. We saw her when she got back from X-ray. Her most recent chest x- ray done on 04/08 shows cardiomegaly with bilateral multifocal edema and/or infiltrates. Again this could be consistent from either CHF or pneumonia. The patients most recent chest x-ray again shows diffuse bilateral infiltrates with predominance of the right side. Lab data shows a white count of 13,000. Hemoglobin 9.9. Microbiology is currently pending or negative. Current vital signs are reviewed. Temperature 97.2, heart rate 64, respiratory rate 20, blood pressure 132/60. Mean 84. 6 L high flow saturation 96%. Appears in no acute distress. HEENT examination is grossly unremarkable. Neck is supple. Cardiovascular examination reveals regular rhythm and rate. Heart sounds are distant. Lungs reveal diffuse coarse rhonchi. Breath sounds are diminished throughout. No wheezes. No crackles. Abdomen is obese. Bowel sounds are heard. Extremities are intact. Slight pitting edema. She has a right leg amputation. Skin without rash. Brief neurological examination is nonfocal. Labs are reviewed. White count 13. Hemoglobin 9.9. Hematocrit 32.4. Platelet count 169,000. Sodium 136, potassium 3.9, chloride 95. CO2 35. BUN and creatinine were 21 and 0.87. Troponins were 0.076, 0.072 and 0.068. Urine in my opinion is consistent with possible urinary tract infection. Microbiology as mentioned is all negative. Medications are reviewed. She is on antibiotics. ASSESSMENT: 1. Shortness of breath with diffuse bilateral infiltrates, which could be consistent with either fluid overload and/or pneumonia. 2. History of congestive heart failure. 3. Possible underlying chronic obstructive pulmonary disease. 4. History of cerebrovascular accident. 5. History of gastroesophageal reflux disease. 6. Hypertension by history. 7. History of hypothyroidism. PLAN: Would continue antibiotics. No additional recommendations are made. She is on updrafts. Cultures negative. We will continue to follow. Prognosis is guarded. MTDD
[2017-04-09] MEDS: FLUTICASONE 50MCG/SPRAY NASAL 16GM EA NOSTRIL SCH ×2 (09:28→21:30)
[2017-04-09] MEDS: PANTOPRAZOLE 40 MG TABLET PO SCH ×2 (09:28→21:31)
[2017-04-09] MEDS: FUROSEMIDE 10 MG/ML 10 ML VIAL IV SCH ×2 (09:28→21:31)
[2017-04-09] MEDS: ALLOPURINOL 100 MG TAB PO SCH (09:29)
[2017-04-09] MEDS: NYSTATIN 100,000 UNIT/GM POWD 15 GM TOPICAL SCH ×2 (09:29→21:31)
[2017-04-09] MEDS: APIXABAN 5 MG TAB PO SCH ×2 (09:29→21:31)
[2017-04-09] MEDS: DILTIAZEM ORAL 60 MG TAB PO SCH ×3 (09:29→21:31)
[2017-04-09] MEDS: AMIODARONE 200 MG TAB PO SCH (09:29)
[2017-04-09] MEDS: MAGNESIUM OXIDE 400 MG TAB PO SCH ×2 (09:29→21:31)
[2017-04-09] MEDS: HYDROcodone/APAP 5-325MG 1 EACH TAB PO PRN ×2 (11:44→21:31)
[2017-04-09] MEDS: POTASSIUM CHLORIDE ER 20 MEQ TAB.ER PO SCH ×2 (11:45→21:31)
--- NOTE | 2017-04-09 14:14 | P.PN ---
Subjective Principal diagnosis: CHF/A. fib This is an 82-year-old female patient with a past medical history significant for history of CHF, chronic atrial fibrillation, hypertension, and dyslipidemia who was transferred from an extended care facility to the emergency room with worsening exertional dyspnea. She was diagnosed with congestive heart failure exacerbation and she was started on Lasix IV. Also upon presentation, she was in A. fib/atrial flutter with RVR. On follow-up with the patient today, shortness of breath is a slightly better. She has been maintaining normal heart rate. She underwent an echo, showed normal LV function with evidence of moderate aortic stenoses and mild mitral stenosis. On physical examination she stated have bilateral crackles in both lung alex. Objective - Vital Signs Vital signs: Vital Signs Temp 96.7 F L 04/09/17 07:55 Pulse 68 04/09/17 07:55 Resp 18 04/09/17 07:55 BP 117/57 04/09/17 07:55 Pulse Ox 97 04/09/17 07:55 Intake & Output 04/08/17 04/09/17 04/09/17 18:59 06:59 18:59 Intake Total 370 120 Output Total 1700 1700 Balance -1330 -1700 120 Weight 118.5 kg Intake: Oral 370 120 Output: Urine 1700 1700 Other: Voiding Method Indwelling Catheter Indwelling Catheter Indwelling Catheter - Constitutional General appearance: Present: no acute distress - Respiratory Respiratory: bilateral: rales - Cardiovascular Rhythm: irregularly irregular Heart sounds: normal: S1, S2 Abnormal Heart Sounds: Present: systolic murmur - Labs CBC & Chem 7: 04/09/17 05:53 04/09/17 05:53 Labs: Abnormal Lab Results - Last 24 Hours (Table) 04/09/17 04/09/17 Range/Units 05:53 05:53 RBC 3.33 L (3.80-5.40) m/uL Hgb 9.7 L (11.4-16.0) gm/dL Hct 32.0 L (34.0-46.0) % MCHC 30.1 L (31.0-37.0) g/dL RDW 15.7 H (11.5-15.5) % Lymphocytes # 0.8 L (1.0-4.8) k/uL Potassium 3.3 L (3.5-5.1) mmol/L Chloride 93 L (98-107) mmol/L Carbon Dioxide 39 H (22-30) mmol/L BUN 20 H (7-17) mg/dL Calcium 8.0 L (8.4-10.2) mg/dL AST 51 H (14-36) U/L Alkaline Phosphatase 365 H (38-126) U/L Albumin 2.5 L (3.5-5.0) g/dL Microbiology - Last 24 Hours (Table) 04/07/17 04:30 Blood Culture - Preliminary Blood No Growth after 48 hours 04/07/17 04:48 Urine Culture - Final Urine,Catheterized Assessment and Plan Plan: This is a pleasant 82-year-old female patient with known CHF, atrial fibrillation, as well as multiple comorbid conditions who was transferred from an extended care facility to the hospital with congestive heart failure. The echocardiogram showed normal LV function with evidence of moderate aortic stenosis. I will keep the patient on the current above dose of Lasix IV which is 60 mg twice a day. Continue monitor the kidney function and electrolytes. Continue following up with the patient.
--- NOTE | 2017-04-09 15:38 | P.PN ---
Subjective This is an 82-year-old female with a previous medical history significant for hypertension and hypertensive cardiovascular disease, chronic diastolic heart failure, history of morbid obesity, history of atrial fibrillation, patient was transferred from [facility] on the [place] yesterday and her the care of Dr. Steward because of increased shortness breath with increased swelling in the left lower extremity, patient also did have a history of right above-knee amputation as well as on, patient was admitted to the hospital because of acute diastolic heart failure and she was started on Lasix 60 minute gram IV push every 12 hours and monitoring her input and output and daily weight. 04/08: Today the patient is feeling a lot better she denies any chest pain she is less short of breath, she is diuresing very well through the Payton catheter, she denies any abdominal pain, nausea, vomiting, her troponin was slightly elevated secondary to demand ischemia without any evidence of acute coronary syndrome. 04/09: Patient is feeling a little better today, she is complaining of pain in the mid epigastric area, she continues to require 6 L oxygen, she is maintained on Lasix 60 mg IV push every 12 hours, we will continue to monitor the patient weight and oxygen situation and follow-up with the patient very closely. Objective - Vital Signs Vital signs: Vital Signs Temp 96.7 F L 04/09/17 07:55 Pulse 68 04/09/17 07:55 Resp 18 04/09/17 07:55 BP 117/57 04/09/17 07:55 Pulse Ox 97 04/09/17 07:55 Intake & Output 04/08/17 04/09/17 04/09/17 18:59 06:59 18:59 Intake Total 370 Output Total 1700 1700 Balance -1330 -1700 Weight 118.5 kg Intake: Oral 370 Output: Urine 1700 1700 Other: Voiding Method Indwelling Catheter Indwelling Catheter Indwelling Catheter - Exam - Constitutional General appearance: Present: mild distress, obese - EENT Eyes: Present: anicteric sclerae, EOMI, PERRLA, normal appearance. Absent: ptosis, scleral icterus ENT: Present: hard of hearing, NA/AT, normal oropharynx. Absent: thrush Ears: bilateral: normal - Neck Neck: Present: normal ROM. Absent: lymphadenopathy, rigidity, stridor, thyromegaly Carotids: bilateral: upstroke normal Thyroid: bilateral: normal size - Respiratory Respiratory: bilateral: diminished, rales, rhonchi, wheezing, prolonged expiration, negative: dullness - Cardiovascular Rhythm: irregularly irregular Heart sounds: normal: S1, S2 Abnormal Heart Sounds: Present: systolic murmur. Absent: rub, click - Gastrointestinal General gastrointestinal: Present: distended, normal bowel sounds, soft. Absent : splenomegaly, tenderness, umbilical hernia, ventral hernia - Integumentary Integumentary: Present: normal, normal turgor - Neurologic Neurologic: Absent: CNII-XII intact - Musculoskeletal Musculoskeletal: Present: generalized weakness, strength equal bilaterally - Psychiatric Psychiatric: Present: A&O x's 3, appropriate affect, intact judgment & insight - Labs CBC & Chem 7: 04/09/17 05:53 04/09/17 05:53 Labs: Abnormal Lab Results - Last 24 Hours (Table) 04/09/17 04/09/17 Range/Units 05:53 05:53 RBC 3.33 L (3.80-5.40) m/uL Hgb 9.7 L (11.4-16.0) gm/dL Hct 32.0 L (34.0-46.0) % MCHC 30.1 L (31.0-37.0) g/dL RDW 15.7 H (11.5-15.5) % Lymphocytes # 0.8 L (1.0-4.8) k/uL Potassium 3.3 L (3.5-5.1) mmol/L Chloride 93 L (98-107) mmol/L Carbon Dioxide 39 H (22-30) mmol/L BUN 20 H (7-17) mg/dL Calcium 8.0 L (8.4-10.2) mg/dL AST 51 H (14-36) U/L Alkaline Phosphatase 365 H (38-126) U/L Albumin 2.5 L (3.5-5.0) g/dL Microbiology - Last 24 Hours (Table) 04/07/17 04:30 Blood Culture - Preliminary Blood No Growth after 48 hours 04/07/17 04:48 Urine Culture - Final Urine,Catheterized Assessment and Plan Plan: Assessment and plan: 1. Acute diastolic heart failure. Continue patient on Lasix 60 mg IV push every 12 hours, monitor input and output and daily weight, monitor the patient' s electrolytes, magnesium, echocardiogram was done and that showed moderate aortic valve stenosis with aortic regurgitation and mild mitral regurgitation with a normal ejection fraction 55-60% with moderate concentric left ventricular hypertrophy. 2. Atrial fibrillation. Continue patient on Eliquis 5 mg orally twice every day, Cardizem 60 mg orally 3 times every day, amiodarone 200 mg orally once every day. 3. Acute hypoxemic respiratory failure secondary to bibasilar pneumonia with acute diastolic heart failure we'll continue treatment as in Paragraph #1 plus continue the clindamycin and tobramycin, sputum culture, blood culture, pulmonary consultation and cardiology consultation. 4. UTI with sepsis. Continue patient on clindamycin as well as tobramycin, check urine culture. 5. Hypertension and hypertensive cardiovascular disease. Continue patient on Cardizem 60 mg orally 3 times every day. 6. History of CVA. Stable at this point in time. 7. Hyperlipidemia. Continue pravastatin 20 mg orally once every day. 8. Hypothyroidism. Continue Synthroid 50 mitral gram orally once every day. 9. Peripheral neuropathy. Continue Lyrica 75 mg orally twice every day. 10. Post right [id number] amputation. Stable at this time. 11. Gout. Continue allopurinol 100 mg orally once every day. 12. DVT prophylaxis. Currently on Eliquis. 13. GI prophylaxis. Continue PPI. 14. Prognosis very guarded.
[2017-04-09] MEDS: PRAVASTATIN SODIUM 20 MG TAB PO SCH (21:31)
[2017-04-09] MEDS: MONTELUKAST 10 MG TAB PO SCH (21:31)
[2017-04-10] MEDS: SODIUM CHLORIDE 0.9% 1,000 ML IV SCH ×4 (06:23→23:32)
[2017-04-10] MEDS: DIGOXIN 125 MCG TAB PO SCH (06:44)
[2017-04-10] MEDS: LEVOTHYROXINE 50 MCG TAB PO SCH (06:44)
[2017-04-10] MEDS: PREGABALIN 50 MG CAP PO SCH ×3 (06:46→20:43)
[2017-04-10 06:49] LABS: Basophils % (A) 0 %; CH 29.9; CHCM 30.9; Eosinophils # (A) 0.5 k/uL (0-0.7); Eosinophils % (A) 6 %; HCT 31.7 % (34.0-46.0); HDW 2.92; HGB 9.7 gm/dL (11.4-16.0); Hypochromasia Moderate; Luc # (Auto) 0.19; Luc % (Auto) 2; Lymphocytes # (A) 0.7 k/uL (1.0-4.8); Lymphocytes % (A) 8 %; MCH 29.8 pg (25.0-35.0); MCHC 30.6 g/dL (31.0-37.0); MCV 97.3 fL (80.0-100.0); Mean Platelet Volume 7.6; Monocytes # (A) 0.5 k/uL (0-1.0); Monocytes % (A) 5 %; Neutrophils # (A) 6.8 k/uL (1.3-7.7); Neutrophils % (A) 79 %; RBC 3.26 m/uL (3.80-5.40); RDW 15.6 % (11.5-15.5); WBC 8.7 k/uL (3.8-10.6); WBC (Perox) 8.72
[2017-04-10] MEDS ORDERED: TOBRAMYCIN TROUGH DUE 1 EACH MISC MISCELLANE ONE (07:00)
[2017-04-10 07:04] LABS: ALT 44 U/L (9-52); AST 53 U/L (14-36); Alkaline Phosphatase 386 U/L (38-126); Blood Urea Nitrogen 21 mg/dL (7-17); Calcium 8.2 mg/dL (8.4-10.2); Chloride 92 mmol/L (98-107); Glucose 82 mg/dL (74-99); Magnesium 1.7 mg/dL (1.6-2.3); Non-African American GFR(MDRD) >60 (>60 ml/min/1.73 sqM); Potassium 3.6 mmol/L (3.5-5.1); Sodium 140 mmol/L (137-145); Total Bilirubin 0.5 mg/dL (0.2-1.3); Total Protein 6.5 g/dL (6.3-8.2)
[2017-04-10 07:11] LABS: Anion Gap 9 mmol/L; Carbon Dioxide 39 mmol/L (22-30)
[2017-04-10] MEDS: TOBRAMYCIN SULFATE 120 MG in SODIUM CHLORIDE 0.9% 100 ML IVPB SCH (08:00)
[2017-04-10] MEDS: IPRATROPIUM-ALBUTEROL 3 ML NEB INHALATION SCH ×2 (08:35→20:06)
[2017-04-10] MEDS: AMIODARONE 200 MG TAB PO SCH (08:37)
[2017-04-10] MEDS: DILTIAZEM ORAL 60 MG TAB PO SCH ×3 (08:37→20:44)
[2017-04-10] MEDS: ALLOPURINOL 100 MG TAB PO SCH (08:37)
[2017-04-10] MEDS: FUROSEMIDE 10 MG/ML 10 ML VIAL IV SCH ×2 (08:37→20:49)
[2017-04-10] MEDS: APIXABAN 5 MG TAB PO SCH ×2 (08:37→20:43)
[2017-04-10] MEDS: FLUTICASONE 50MCG/SPRAY NASAL 16GM EA NOSTRIL SCH ×2 (08:38→20:49)
[2017-04-10] MEDS: PANTOPRAZOLE 40 MG TABLET PO SCH ×2 (08:38→20:44)
[2017-04-10] MEDS: POTASSIUM CHLORIDE ER 20 MEQ TAB.ER PO SCH ×2 (08:38→20:43)
[2017-04-10] MEDS: MAGNESIUM OXIDE 400 MG TAB PO SCH ×2 (08:38→20:44)
[2017-04-10] MEDS: ALPRAZolam 0.25 MG TAB PO PRN ×2 (08:58→20:44)
[2017-04-10] MEDS ORDERED: FUROSEMIDE 40 MG TAB PO SCH (09:00)
--- NOTE | 2017-04-10 09:10 | XR ---
EXAMINATION TYPE: XR chest 1V portable DATE OF EXAM: 04/10/2017 COMPARISON: 04/08/2017 HISTORY: Shortness of breath FINDINGS: There are bilateral pleural effusions with cardiomegaly and bibasilar infiltrate. There is a diffuse interstitial pattern. Diffuse osteopenia noted. Arthropathy of the shoulders. Atherosclerotic change aorta. IMPRESSION: 1. Correlate for diffuse pneumonia versus pulmonary edema. Findings stable.
[2017-04-10] MEDS: CLINDAMYCIN 600 MG in DEXTROSE 5% IN WATER 50 ML IVPB SCH ×6 (09:13→23:32)
--- NOTE | 2017-04-10 10:39 | PN ---
This is an 82-year-old female who is seen in consultation a couple of days ago. She came in with complaints of shortness of breath and diffuse bilateral infiltrates on chest x-ray. Her clinical pattern was consistent with either pneumonia and/or CHF although I thought it was more likely CHF given the fact that her BMP was 4,000. Seems to be doing a bit better. Less short of breath. Will order a chest x-ray for her tomorrow morning. Her chest x-ray showed cardiomegaly with bilateral infiltrates. Again either consistent with a pneumonic process and/or heart failure although the latter was favored. She is improved, less short of breath. No cough, no fever. No phlegm production. No chest pain. No nausea, vomiting or diarrhea. He does have an history of heart failure, underlying COPD, CVA, GERD, hypertension and hypothyroidism. Current vital signs show a temperature 96.7, heart rate 68, respiratory rate 18 , blood pressure 117/57, mean 77, 5 L saturations on high-flow are 97%. Appears in no acute distress. No respiratory distress. No audible wheezing. HEENT examination is grossly unremarkable. Mixed membranes are moist. No oral lesions. Neck is supple, full range of motion. No adenopathy, thyromegaly or neck vein distension. Cardiovascular examination reveal regular rhythm and rate. Heart rate is 74, heart sounds are distant. S1, S2 normal. No S3, S4. No distinct murmur. Lungs reveal some bibasilar crackles. Breath sounds are diminished. A few scattered rhonchi. No wheezes. Abdomen soft, bowel sounds are heard. Extremities are intact. No cyanosis or clubbing. Slight edema. She has a right left amputation. Skin without rash. Labs are reviewed. White count 9.5, hemoglobin 9.7, hematocrit 32.0, platelet count 162,000, sodium 138, potassium 3.3, chloride is 93, CO2 is 39. BUN and creatinine were 20 and 0.9. The rest of the labs look okay. Microbiology showing blood cultures to be negative. Urine culture is negative. Chest x-ray done on the fifth shows evidence of cardiomegaly with bilateral multifocal infiltrates consistent with CHF. ASSESSMENT: 1. Shortness of breath with diffuse bilateral infiltrates, which might be consistent either with congestive heart failure and/or pneumonia although the former is the favorite. 2. History of congestive heart failure. 3. Possible underlying chronic obstructive pulmonary disease. 4. History of cerebrovascular accident. 5. History of gastroesophageal reflux disease. 6. Hypertension. 7. History of hypothyroidism. PLAN: Patient seems to be doing relatively well. Labs, x-rays and medications are all reviewed. Will continue to follow closely. Chest x-ray in the morning. Additional recommendation and suggestions are forthcoming. Prognosis is guarded. MTDD
--- NOTE | 2017-04-10 12:09 | P.PN ---
Subjective Principal diagnosis: CHF/A. fib This is an 82-year-old female patient with a past medical history significant for history of CHF, chronic atrial fibrillation, hypertension, and dyslipidemia who was transferred from an extended care facility to the emergency room with worsening exertional dyspnea. She was diagnosed with congestive heart failure exacerbation and she was started on Lasix IV. Also upon presentation, she was in A. FIB/Flutter with RVR. On follow-up with the patient today, shortness of breath is a slightly better. She has been maintaining normal heart rate. She underwent an echo, showed normal LV function with evidence of moderate aortic stenoses and mild mitral stenosis. She still not feeling well and continues to have shortness of breath more than her baseline. On physical examination she stated have bilateral crackles in both lung alex. The kidney function continues to be within normal limits as well as the electrolytes. Objective - Vital Signs Vital signs: Vital Signs Temp 97.4 F L 04/10/17 04:00 Pulse 80 04/10/17 08:44 Resp 18 04/10/17 04:00 BP 115/55 04/10/17 04:00 Pulse Ox 99 04/10/17 04:00 Intake & Output 04/09/17 04/10/17 04/10/17 18:59 06:59 18:59 Intake Total 610 240 Output Total 2250 Balance 610 -2250 240 Weight 117.5 kg Intake: Intake, IV Titration 50 Amount Clindamycin 600 mg In 50 Dextrose 5% in Water 50 ml @ 100 mls/hr IVPB Q8HR [facility] Rx#:[id number] Oral 560 240 Output: Urine 2250 Uretheral (Payton) 650 Other: Voiding Method Indwelling Catheter Indwelling Catheter - Constitutional General appearance: Present: no acute distress - Respiratory Respiratory: bilateral: diminished - Cardiovascular Rhythm: irregularly irregular Heart sounds: normal: S1, S2 Abnormal Heart Sounds: Present: systolic murmur - Labs CBC & Chem 7: 04/10/17 06:20 04/10/17 06:20 Labs: Abnormal Lab Results - Last 24 Hours (Table) 04/10/17 04/10/17 04/10/17 Range/Units 06:20 06:20 06:20 RBC 3.26 L (3.80-5.40) m/uL Hgb 9.7 L (11.4-16.0) gm/dL Hct 31.7 L (34.0-46.0) % MCHC 30.6 L (31.0-37.0) g/dL RDW 15.6 H (11.5-15.5) % Lymphocytes # 0.7 L (1.0-4.8) k/uL Chloride 92 L (98-107) mmol/L Carbon Dioxide 39 H (22-30) mmol/L BUN 21 H (7-17) mg/dL Calcium 8.2 L (8.4-10.2) mg/dL AST 53 H (14-36) U/L Alkaline Phosphatase 386 H (38-126) U/L Albumin 2.5 L (3.5-5.0) g/dL Tobramycin Trough 3.3 H* ug/mL Microbiology - Last 24 Hours (Table) 04/07/17 04:30 Blood Culture - Preliminary Blood No Growth after 72 hours Assessment and Plan Plan: This is a pleasant 82-year-old female patient with known CHF, atrial fibrillation, as well as multiple comorbid conditions who was transferred from an extended care facility to the hospital with congestive heart failure. The echocardiogram showed normal LV function with evidence of moderate aortic stenosis. I will keep the patient on the current above dose of Lasix IV which is 60 mg twice a day. Continue monitor the kidney function and electrolytes. Continue following up with the patient.
[2017-04-10] MEDS: NYSTATIN 100,000 UNIT/GM POWD 15 GM TOPICAL SCH ×2 (13:48→20:49)
--- NOTE | 2017-04-10 14:20 | P.PN ---
Subjective This is an 82-year-old female with a previous medical history significant for hypertension and hypertensive cardiovascular disease, chronic diastolic heart failure, history of morbid obesity, history of atrial fibrillation, patient was transferred from [facility] on the [place] yesterday and her the care of Dr. Steward because of increased shortness breath with increased swelling in the left lower extremity, patient also did have a history of right above-knee amputation as well as on, patient was admitted to the hospital because of acute diastolic heart failure and she was started on Lasix 60 minute gram IV push every 12 hours and monitoring her input and output and daily weight. 85: Today the patient is feeling a lot better she denies any chest pain she is less short of breath, she is diuresing very well through the Payton catheter, she denies any abdominal pain, nausea, vomiting, her troponin was slightly elevated secondary to demand ischemia without any evidence of acute coronary syndrome. 86: Patient is feeling a little better today, she is complaining of pain in the mid epigastric area, she continues to require 6 L oxygen, she is maintained on Lasix 60 mg IV push every 12 hours, we will continue to monitor the patient weight and oxygen situation and follow-up with the patient very closely. 8: Patient continues to complain of shortness of breath and is currently on 6 L of nasal cannula but when decreased to 4 L patient's pulse ox is still 96%. Patient denies feeling any improvement today. Nurses concern that patient has some anxiety regarding to the oxygen use. She is currently on Lasix 60 mg IV every 12 hours which will be continued. Payton catheter in place with good urine output. Weight is down 1 kg from yesterday. Repeat chest x-ray shows correlate for diffuse pneumonia versus pulmonary edema. Findings stable. Objective - Vital Signs Vital signs: Vital Signs Temp 97.4 F L 04/10/17 04:00 Pulse 80 04/10/17 08:44 Resp 18 04/10/17 04:00 BP 115/55 04/10/17 04:00 Pulse Ox 99 04/10/17 04:00 Intake & Output 04/09/17 04/10/17 04/10/17 18:59 06:59 18:59 Intake Total 610 240 Output Total 2250 Balance 610 -2250 240 Weight 117.5 kg Intake: Intake, IV Titration 50 Amount Clindamycin 600 mg In 50 Dextrose 5% in Water 50 ml @ 100 mls/hr IVPB Q8HR [facility] Rx#:[id number] Oral 560 240 Output: Urine 2250 Uretheral (Payton) 650 Other: Voiding Method Indwelling Catheter Indwelling Catheter - Exam General appearance: Present: mild distress, obese - EENT Eyes: Present: anicteric sclerae, EOMI, PERRLA, normal appearance. Absent: ptosis, scleral icterus ENT: Present: hard of hearing, NA/AT, normal oropharynx. Absent: thrush Ears: bilateral: normal - Neck Neck: Present: normal ROM. Absent: lymphadenopathy, rigidity, stridor, thyromegaly Carotids: bilateral: upstroke normal Thyroid: bilateral: normal size - Respiratory Respiratory: bilateral: diminished, rales, rhonchi, wheezing, prolonged expiration, negative: dullness - Cardiovascular Rhythm: irregularly irregular Heart sounds: normal: S1, S2 Abnormal Heart Sounds: Present: systolic murmur. Absent: rub, click - Gastrointestinal General gastrointestinal: Present: distended, normal bowel sounds, soft. Absent : splenomegaly, tenderness, umbilical hernia, ventral hernia - Integumentary Integumentary: Present: normal, normal turgor - Neurologic Neurologic: Absent: CNII-XII intact - Musculoskeletal Musculoskeletal: Present: generalized weakness, strength equal bilaterally - Psychiatric Psychiatric: Present: A&O x's 3, appropriate affect, intact judgment & insight - Labs CBC & Chem 7: 04/10/17 06:20 04/10/17 06:20 Labs: Abnormal Lab Results - Last 24 Hours (Table) 04/10/17 04/10/17 04/10/17 Range/Units 06:20 06:20 06:20 RBC 3.26 L (3.80-5.40) m/uL Hgb 9.7 L (11.4-16.0) gm/dL Hct 31.7 L (34.0-46.0) % MCHC 30.6 L (31.0-37.0) g/dL RDW 15.6 H (11.5-15.5) % Lymphocytes # 0.7 L (1.0-4.8) k/uL Chloride 92 L (98-107) mmol/L Carbon Dioxide 39 H (22-30) mmol/L BUN 21 H (7-17) mg/dL Calcium 8.2 L (8.4-10.2) mg/dL AST 53 H (14-36) U/L Alkaline Phosphatase 386 H (38-126) U/L Albumin 2.5 L (3.5-5.0) g/dL Tobramycin Trough 3.3 H* ug/mL Microbiology - Last 24 Hours (Table) 04/07/17 04:30 Blood Culture - Preliminary Blood No Growth after 72 hours Assessment and Plan Plan: 1. Acute diastolic heart failure. Continue patient on Lasix 60 mg IV push every 12 hours, monitor input and output and daily weight, monitor the patient' s electrolytes, magnesium, echocardiogram was done and that showed moderate aortic valve stenosis with aortic regurgitation and mild mitral regurgitation with a normal ejection fraction 55-60% with moderate concentric left ventricular hypertrophy. 2. Chronic Atrial fibrillation. Continue patient on Eliquis 5 mg orally twice every day, Cardizem 60 mg orally 3 times every day, amiodarone 200 mg orally once every day. 3. Acute hypoxemic respiratory failure secondary to bibasilar pneumonia with acute diastolic heart failure we'll continue treatment as in Paragraph #1 plus continue the clindamycin and tobramycin, sputum culture, blood culture, pulmonary consultation and cardiology consultation. 4. UTI with sepsis. Continue patient on clindamycin as well as tobramycin, check urine culture. 5. Hypertension and hypertensive cardiovascular disease. Continue patient on Cardizem 60 mg orally 3 times every day. 6. History of CVA. Stable at this point in time. 7. Hyperlipidemia. Continue pravastatin 20 mg orally once every day. 8. Hypothyroidism. Continue Synthroid 50 mitral gram orally once every day. 9. Peripheral neuropathy. Continue Lyrica 75 mg orally twice every day. 10. Post right [id number]-[id number] amputation. Stable at this time. 11. Gout. Continue allopurinol 100 mg orally once every day. 12. DVT prophylaxis. Currently on Eliquis. 13. GI prophylaxis. Continue PPI. 14. Prognosis very guarded. Discharge plan: [facility] Impression and plan of care have been directed as dictated by the signing physician. Amada Cantrell nurse practitioner acting as scribe for signing physician.
--- NOTE | 2017-04-10 16:22 | P.PN ---
Subjective This is an 82-year-old female with a previous medical history significant for hypertension and hypertensive cardiovascular disease, chronic diastolic heart failure, history of morbid obesity, history of atrial fibrillation, patient was transferred from [facility] on the [place] yesterday and her the care of Dr. Steward because of increased shortness breath with increased swelling in the left lower extremity, patient also did have a history of right above-knee amputation as well as on, patient was admitted to the hospital because of acute diastolic heart failure and she was started on Lasix 60 minute gram IV push every 12 hours and monitoring her input and output and daily weight. On 04/10/2017 I'm seeing this patient in follow-up. The patient is diuresing nicely with IV Lasix. She has extensive edema in the left lower extremity. Note that she has a below-knee amputation on the right. Shortness of breath is gradually improving. The patient remains on 4-5 L of oxygen nasal cannula to maintain a saturation above 90%. Chest x-ray most consistent with CHF. Underlying pneumonia is felt to be doubtful. No change in mental status. No fever. No chills. No hemoptysis. No pleurisy. Oral intake is diminished. Objective - Vital Signs Vital signs: Vital Signs Temp 98 F 04/10/17 12:00 Pulse 80 04/10/17 12:00 Resp 18 04/10/17 12:00 BP 120/58 04/10/17 12:00 Pulse Ox 97 04/10/17 12:00 Intake & Output 04/09/17 04/10/17 04/10/17 18:59 06:59 18:59 Intake Total 610 900 Output Total 2250 2000 Balance 610 -2250 -1100 Weight 117.5 kg Intake: Intake, IV Titration 50 Amount Clindamycin 600 mg In 50 Dextrose 5% in Water 50 ml @ 100 mls/hr IVPB Q8HR [facility] Rx#:[id number] Oral 560 900 Output: Urine 2250 2000 Uretheral (Payton) 650 Other: Voiding Method Indwelling Catheter Indwelling Catheter Indwelling Catheter # Voids 1 - Exam Head exam was generally normal. There was no scleral icterus or corneal arcus. Mucous membranes were moist.Neck was supple and without jugular venous distension, thyromegaly, or carotid bruits. Carotids were easily palpable bilaterally. There was no adenopathy. Lung sounds are diminished bilaterally along with some bibasilar crackles. No wheezes. No rhonchi. Heart sounds are irregular, normal S1-S2, there is a prosthesis is a ejection murmur grade 3/6 heard throughout the precordium.Abdominal exam revealed normal bowel sounds. The abdomen was soft, non-tender, and without masses, organomegaly, or appreciable enlargement of the abdominal aorta. The patient has a ventral hernia.Examination of the extremities revealed increase in edema in the left lower extremity and the patient has a below-knee amputation on the right. Neurologically the patient is awake and alert. No focal neurological deficit at this point. - Labs CBC & Chem 7: 04/10/17 06:20 04/10/17 06:20 Labs: Abnormal Lab Results - Last 24 Hours (Table) 04/10/17 04/10/17 04/10/17 Range/Units 06:20 06:20 06:20 RBC 3.26 L (3.80-5.40) m/uL Hgb 9.7 L (11.4-16.0) gm/dL Hct 31.7 L (34.0-46.0) % MCHC 30.6 L (31.0-37.0) g/dL RDW 15.6 H (11.5-15.5) % Lymphocytes # 0.7 L (1.0-4.8) k/uL Chloride 92 L (98-107) mmol/L Carbon Dioxide 39 H (22-30) mmol/L BUN 21 H (7-17) mg/dL Calcium 8.2 L (8.4-10.2) mg/dL AST 53 H (14-36) U/L Alkaline Phosphatase 386 H (38-126) U/L Albumin 2.5 L (3.5-5.0) g/dL Tobramycin Trough 3.3 H* ug/mL Microbiology - Last 24 Hours (Table) 04/07/17 04:30 Blood Culture - Preliminary Blood No Growth after 72 hours Assessment and Plan Plan: Assessment 1 acute CHF exacerbation. The patient has CHF with diastolic dysfunction and secondary pulmonary edema. Echocardiogram showed moderate degree of aortic valve stenosis with regurgitation and mild MR with moderate degree of concentric left ventricular hypertrophy. Currently and IV Lasix. 2 chronic atrial fibrillation maintained on a combination of Cardizem and amiodarone and Eliquis 3 chronic hypoxic respiratory failure maintained on oxygen at 40 extremities and cannula. Pneumonia is doubtful. Tobramycin needs to be discontinued knowing that this has no penetration to the lungs. Clindamycin will be continued as long as the patient may potentially have an underlying aspiration pneumonia 4 hypertension and hypertensive heart disease 5 CVA, history of 6 hyperlipidemia 7 hypothyroidism 8 peripheral neuropathy 9 above-knee amputation of the right lower extremities 10 gout 11 chronic anemia, normocytic Plan Continue fluid restriction and salt restriction. Continue IV Lasix. Wean down FiO2 as tolerated. Chest x-ray was reviewed and is consistent with pulmonary edema. Suggest discontinuing the tobramycin. Suggest continuing the clindamycin for now. Repeat chest x-ray with next 24-48 hours. Rest the medication was reviewed and no other chest from my standpoint and will continue to follow.
[2017-04-10] MEDS: PRAVASTATIN SODIUM 20 MG TAB PO SCH (20:44)
[2017-04-10] MEDS: MONTELUKAST 10 MG TAB PO SCH (20:44)
[2017-04-10] MEDS ORDERED: TOBRAMYCIN SULFATE 100 MG in SODIUM CHLORIDE 0.9% 100 ML IVPB SCH (21:00)
[2017-04-11] MEDS: PREGABALIN 50 MG CAP PO SCH ×3 (06:03→20:51)
[2017-04-11] MEDS: LEVOTHYROXINE 50 MCG TAB PO SCH (06:03)
[2017-04-11] MEDS: DIGOXIN 125 MCG TAB PO SCH (06:03)
[2017-04-11 06:29] LABS: CH 29.3; CHCM 30.8; HCT 32.2 % (34.0-46.0); HDW 2.97; Hypochromasia Moderate; MCH 29.5 pg (25.0-35.0); MCHC 30.9 g/dL (31.0-37.0); MCV 95.5 fL (80.0-100.0); Mean Platelet Volume 7.1; RBC 3.37 m/uL (3.80-5.40); RDW 15.1 % (11.5-15.5)
[2017-04-11 07:13] LABS: ALT 47 U/L (9-52); AST 57 U/L (14-36); Alkaline Phosphatase 388 U/L (38-126); Anion Gap 6 mmol/L; Blood Urea Nitrogen 21 mg/dL (7-17); Calcium 8.2 mg/dL (8.4-10.2); Chloride 92 mmol/L (98-107); Glucose 80 mg/dL (74-99); Non-African American GFR(MDRD) 58 (>60 ml/min/1.73 sqM); Potassium 3.8 mmol/L (3.5-5.1); Sodium 138 mmol/L (137-145); Total Bilirubin 0.5 mg/dL (0.2-1.3); Total Protein 6.6 g/dL (6.3-8.2)
[2017-04-11 07:17] LABS: Carbon Dioxide 40 mmol/L (22-30)
[2017-04-11] MEDS: CLINDAMYCIN 600 MG in DEXTROSE 5% IN WATER 50 ML IVPB SCH ×4 (09:20→17:07)
[2017-04-11] MEDS: ALLOPURINOL 100 MG TAB PO SCH (09:42)
[2017-04-11] MEDS: APIXABAN 5 MG TAB PO SCH ×2 (09:42→20:51)
[2017-04-11] MEDS: AMIODARONE 200 MG TAB PO SCH (09:42)
[2017-04-11] MEDS: DILTIAZEM ORAL 60 MG TAB PO SCH ×3 (09:43→20:53)
[2017-04-11] MEDS: POTASSIUM CHLORIDE ER 20 MEQ TAB.ER PO SCH ×2 (09:43→20:51)
[2017-04-11] MEDS: MAGNESIUM OXIDE 400 MG TAB PO SCH ×2 (09:43→20:53)
[2017-04-11] MEDS: FLUTICASONE 50MCG/SPRAY NASAL 16GM EA NOSTRIL SCH ×2 (09:43→21:00)
[2017-04-11] MEDS: PANTOPRAZOLE 40 MG TABLET PO SCH ×2 (09:43→20:53)
[2017-04-11] MEDS: FUROSEMIDE 10 MG/ML 10 ML VIAL IV SCH ×2 (09:43→21:00)
[2017-04-11] MEDS: IPRATROPIUM-ALBUTEROL 3 ML NEB INHALATION SCH ×2 (09:57→19:42)
[2017-04-11] MEDS: SODIUM CHLORIDE 0.9% 1,000 ML IV SCH ×2 (11:57→21:01)
--- NOTE | 2017-04-11 12:09 | P.PN ---
Subjective This is an 82-year-old female with a previous medical history significant for hypertension and hypertensive cardiovascular disease, chronic diastolic heart failure, history of morbid obesity, history of atrial fibrillation, patient was transferred from [facility] on the [place] yesterday and her the care of Dr. Steward because of increased shortness breath with increased swelling in the left lower extremity, patient also did have a history of right above-knee amputation as well as on, patient was admitted to the hospital because of acute diastolic heart failure and she was started on Lasix 60 minute gram IV push every 12 hours and monitoring her input and output and daily weight. On 04/10/2017 I'm seeing this patient in follow-up. The patient is diuresing nicely with IV Lasix. She has extensive edema in the left lower extremity. Note that she has a below-knee amputation on the right. Shortness of breath is gradually improving. The patient remains on 4-5 L of oxygen nasal cannula to maintain a saturation above 90%. Chest x-ray most consistent with CHF. Underlying pneumonia is felt to be doubtful. No change in mental status. No fever. No chills. No hemoptysis. No pleurisy. Oral intake is diminished. On 04/11/2017 I'm seeing this patient in follow-up. The patient is still on diuretics. The left lower extremity is been wrapped and there is still some residual edema in the left leg. She has an [id number] position on the right. Her net fluid balance is negative more than 4 L over the past 24 hours and overall she has diuresed more than 7-8 L. She is developing some degree of metabolic alkalosis due to diuresis. Her oxygenation is unchanged and the patient is on a 4 L of oxygen nasal cannula her pulse ox on 96%. She rests comfortably in bed. No cough or sputum production. No change in mental status. No fever or chills. No aspiration. The patient remains on Lasix 60 mg IV push every 12 hours. The patient is also on long-term anticoagulation with Eliquis. The patient is on clindamycin for any potential aspiration pneumonia. Urine cultures been negative. Blood culture been negative. Objective - Vital Signs Vital signs: Vital Signs Temp 97.8 F 04/11/17 08:00 Pulse 66 04/11/17 10:11 Resp 18 04/11/17 08:00 BP 121/58 04/11/17 08:00 Pulse Ox 96 04/11/17 08:00 Intake & Output 04/10/17 04/11/17 04/11/17 18:59 06:59 18:59 Intake Total 1260 290 120 Output Total 2000 1800 800 Balance -926 -4385 -866 Weight 122 kg Intake: Intake, IV Titration 290 Amount Clindamycin 600 mg In 50 Dextrose 5% in Water 50 ml @ 100 mls/hr IVPB Q8HR [facility] Rx#:[id number] Sodium Chloride 0.9% 1, 240 000 ml @ 100 mls/hr IV . Q10H [facility] Rx#:[id number] Oral 1260 120 Output: Urine 1999 1800 800 Other: Voiding Method Indwelling Catheter Indwelling Catheter Indwelling Catheter # Voids 1 1 # Bowel Movements 1 1 - Exam Head exam was generally normal. There was no scleral icterus or corneal arcus. Mucous membranes were moist.Neck was supple and without jugular venous distension, thyromegaly, or carotid bruits. Carotids were easily palpable bilaterally. There was no adenopathy. Lung sounds are diminished bilaterally along with some bibasilar crackles. No wheezes. No rhonchi. Heart sounds are irregular, normal S1-S2, there is a prosthesis is a ejection murmur grade 3/6 heard throughout the precordium.Abdominal exam revealed normal bowel sounds. The abdomen was soft, non-tender, and without masses, organomegaly, or appreciable enlargement of the abdominal aorta. The patient has a ventral hernia.Examination of the extremities revealed increase in edema in the left lower extremity and the patient has a below-knee amputation on the right. Neurologically the patient is awake and alert. No focal neurological deficit at this point. - Labs CBC & Chem 7: 04/11/17 05:56 04/11/17 05:56 Labs: Abnormal Lab Results - Last 24 Hours (Table) 04/11/17 04/11/17 Range/Units 05:56 05:56 RBC 3.37 L (3.80-5.40) m/uL Hgb 10.0 L (11.4-16.0) gm/dL Hct 32.2 L (34.0-46.0) % MCHC 30.9 L (31.0-37.0) g/dL Chloride 92 L (98-107) mmol/L Carbon Dioxide 40 H* (22-30) mmol/L BUN 21 H (7-17) mg/dL Calcium 8.2 L (8.4-10.2) mg/dL AST 57 H (14-36) U/L Alkaline Phosphatase 388 H (38-126) U/L Albumin 2.6 L (3.5-5.0) g/dL Microbiology - Last 24 Hours (Table) 04/07/17 04:30 Blood Culture - Preliminary Blood No Growth after 96 hours Assessment and Plan Plan: Assessment 1 acute CHF exacerbation. The patient has CHF with diastolic dysfunction and secondary pulmonary edema. Echocardiogram showed moderate degree of aortic valve stenosis with regurgitation and mild MR with moderate degree of concentric left ventricular hypertrophy. Currently and IV Lasix. 2 chronic atrial fibrillation maintained on a combination of Cardizem and amiodarone and Eliquis 3 chronic hypoxic respiratory failure maintained on oxygen at 40 extremities and cannula. Pneumonia is doubtful. Tobramycin needs to be discontinued knowing that this has no penetration to the lungs. Clindamycin will be continued as long as the patient may potentially have an underlying aspiration pneumonia 4 hypertension and hypertensive heart disease 5 CVA, history of 6 hyperlipidemia 7 hypothyroidism 8 peripheral neuropathy 9 above-knee amputation of the right lower extremities 10 gout 11 chronic anemia, normocytic Plan Continue fluid restriction and salt restriction. Continue IV Lasix. Repeat chest x-ray in the morning. Continue clindamycin. Condition is stable. The patient is developing a mild degree of metabolic alkalosis due to aggressive diuresis. We'll continue to follow.
[2017-04-11] MEDS: ALPRAZolam 0.25 MG TAB PO PRN ×2 (13:11→20:50)
[2017-04-11] MEDS: HYDROcodone/APAP 5-325MG 1 EACH TAB PO PRN (13:15)
--- NOTE | 2017-04-11 13:28 | P.PN ---
Subjective This is an 82-year-old female with a previous medical history significant for hypertension and hypertensive cardiovascular disease, chronic diastolic heart failure, history of morbid obesity, history of atrial fibrillation, patient was transferred from [facility] on the [facility] yesterday and her the care of Dr. Steward because of increased shortness breath with increased swelling in the left lower extremity, patient also did have a history of right above-knee amputation as well as on, patient was admitted to the hospital because of acute diastolic heart failure and she was started on Lasix 60 minute gram IV push every 12 hours and monitoring her input and output and daily weight. 04/08: Today the patient is feeling a lot better she denies any chest pain she is less short of breath, she is diuresing very well through the Payton catheter, she denies any abdominal pain, nausea, vomiting, her troponin was slightly elevated secondary to demand ischemia without any evidence of acute coronary syndrome. 04/09: Patient is feeling a little better today, she is complaining of pain in the mid epigastric area, she continues to require 6 L oxygen, she is maintained on Lasix 60 mg IV push every 12 hours, we will continue to monitor the patient weight and oxygen situation and follow-up with the patient very closely. 04/10: Patient continues to complain of shortness of breath and is currently on 6 L of nasal cannula but when decreased to 4 L patient's pulse ox is still 96%. Patient denies feeling any improvement today. Nurses concern that patient has some anxiety regarding to the oxygen use. She is currently on Lasix 60 mg IV every 12 hours which will be continued. Payton catheter in place with good urine output. Weight is down 1 kg from yesterday. Repeat chest x-ray shows correlate for diffuse pneumonia versus pulmonary edema. Findings stable. 04/11: Patient continues on Lasix IV 60 every 12 hours. Weight appears to be an accurate she has gained weight from yesterday. Repeat chest x-ray has been ordered for tomorrow by Dr. Martins. Pulse ox is currently 96% on 5 L and patient states she is normally on 4 L at [facility]. Patient feels that her breathing is about the same as yesterday. Payton remains in place with good urine output. Objective - Vital Signs Vital signs: Vital Signs Temp 97.8 F 04/11/17 08:00 Pulse 66 04/11/17 10:11 Resp 18 04/11/17 08:00 BP 121/58 04/11/17 08:00 Pulse Ox 96 04/11/17 08:00 Intake & Output 04/10/17 04/11/17 04/11/17 18:59 06:59 18:59 Intake Total 1260 290 120 Output Total 1999 1800 800 Balance -637 -0553 -680 Weight 122 kg Intake: Intake, IV Titration 290 Amount Clindamycin 600 mg In 50 Dextrose 5% in Water 50 ml @ 100 mls/hr IVPB Q8HR CHARISSA Rx#:[id number] Sodium Chloride 0.9% 1, 240 000 ml @ 100 mls/hr IV . Q10H CHARISSA Rx#:[id number] Oral 1260 120 Output: Urine 1999 1800 800 Other: Voiding Method Indwelling Catheter Indwelling Catheter Indwelling Catheter # Voids 1 1 # Bowel Movements 1 1 - Exam General appearance: Present: mild distress, obese - EENT Eyes: Present: anicteric sclerae, EOMI, PERRLA, normal appearance. Absent: ptosis, scleral icterus ENT: Present: hard of hearing, NA/AT, normal oropharynx. Absent: thrush Ears: bilateral: normal - Neck Neck: Present: normal ROM. Absent: lymphadenopathy, rigidity, stridor, thyromegaly Carotids: bilateral: upstroke normal Thyroid: bilateral: normal size - Respiratory Respiratory: bilateral: diminished, rales, rhonchi, wheezing, prolonged expiration, negative: dullness - Cardiovascular Rhythm: irregularly irregular Heart sounds: normal: S1, S2 Abnormal Heart Sounds: Present: systolic murmur. Absent: rub, click - Gastrointestinal General gastrointestinal: Present: distended, normal bowel sounds, soft. Absent : splenomegaly, tenderness, umbilical hernia, ventral hernia - Integumentary Integumentary: Present: normal, normal turgor - Neurologic Neurologic: Absent: CNII-XII intact - Musculoskeletal Musculoskeletal: Present: generalized weakness, strength equal bilaterally - Psychiatric Psychiatric: Present: A&O x's 3, appropriate affect, intact judgment & insight - Labs CBC & Chem 7: 04/11/17 05:56 04/11/17 05:56 Labs: Abnormal Lab Results - Last 24 Hours (Table) 04/11/17 04/11/17 Range/Units 05:56 05:56 RBC 3.37 L (3.80-5.40) m/uL Hgb 10.0 L (11.4-16.0) gm/dL Hct 32.2 L (34.0-46.0) % MCHC 30.9 L (31.0-37.0) g/dL Chloride 92 L (98-107) mmol/L Carbon Dioxide 40 H* (22-30) mmol/L BUN 21 H (7-17) mg/dL Calcium 8.2 L (8.4-10.2) mg/dL AST 57 H (14-36) U/L Alkaline Phosphatase 388 H (38-126) U/L Albumin 2.6 L (3.5-5.0) g/dL Microbiology - Last 24 Hours (Table) 04/07/17 04:30 Blood Culture - Preliminary Blood No Growth after 96 hours Assessment and Plan Plan: 1. Acute diastolic heart failure. Continue patient on Lasix 60 mg IV push every 12 hours, monitor input and output and daily weight, monitor the patient' s electrolytes, magnesium, echocardiogram was done and that showed moderate aortic valve stenosis with aortic regurgitation and mild mitral regurgitation with a normal ejection fraction 55-60% with moderate concentric left ventricular hypertrophy. 2. Chronic Atrial fibrillation. Continue patient on Eliquis 5 mg orally twice every day, Cardizem 60 mg orally 3 times every day, amiodarone 200 mg orally once every day. 3. Acute hypoxemic respiratory failure secondary to bibasilar pneumonia, most likely aspiration pneumonia, with acute diastolic heart failure we'll continue treatment as in Paragraph #1 plus continue the clindamycin and tobramycin, sputum culture, blood culture, pulmonary consultation and cardiology consultation. 4. UTI with sepsis. Continue patient on clindamycin as well as tobramycin, check urine culture. 5. Hypertension and hypertensive cardiovascular disease. Continue patient on Cardizem 60 mg orally 3 times every day. 6. History of CVA. Stable at this point in time. 7. Hyperlipidemia. Continue pravastatin 20 mg orally once every day. 8. Hypothyroidism. Continue Synthroid 50 mitral gram orally once every day. 9. Peripheral neuropathy. Continue Lyrica 75 mg orally twice every day. 10. Post right zvsaq-vzk-wqlm amputation. Stable at this time. 11. Gout. Continue allopurinol 100 mg orally once every day. 12. DVT prophylaxis. Currently on Eliquis. 13. GI prophylaxis. Continue PPI. 14. Prognosis very guarded. Discharge plan: [facility] return Impression and plan of care have been directed as dictated by the signing physician. Amada Cantrell nurse practitioner acting as scribe for signing physician.
--- NOTE | 2017-04-11 14:24 | P.PN ---
Subjective Principal diagnosis: CHF 04/11/2017 This is an 82-year-old female with history of hypertension, diastolic heart failure, morbid obesity, chronic persistent atrial fibrillation, prior right iysau-kyk-flml amputation, who presented to the hospital with symptoms of progressively worsening shortness of breath. She is diuresing overall very well on IV Lasix. Her net fluid balance is more than 4 L in the past 24 hours. Left lower extremity has Anuel wraps in place with residual edema. Patient has an ftysn-qgc-kfir amputation on the right with evidence of edema. She denies any cough, overall she does state her breathing is somewhat improved. Resting comfortably in bed. No evidence of fever or chills. She continues to be on Lasix 60 mg IV every 12 hours. She is also on long-term anticoagulation with Eliquis. Hemoglobin today 10.0, potassium 3.8, BUN 21, creatinine 0.9. Echocardiogram with Doppler study was performed which revealed moderate to severe aortic stenosis, ejection fraction 55-60%. Moderate concentric LVH, severe pulmonary hypertension. Objective - Vital Signs Vital signs: Vital Signs Temp 98 F 04/11/17 12:00 Pulse 67 04/11/17 12:00 Resp 18 04/11/17 12:00 BP 135/60 04/11/17 12:00 Pulse Ox 95 04/11/17 12:00 Intake & Output 04/10/17 04/11/17 04/11/17 18:59 06:59 18:59 Intake Total 1260 290 240 Output Total 1999 1800 800 Balance -740 1510 -560 Weight 122 kg Intake: Intake, IV Titration 290 Amount Clindamycin 600 mg In 50 Dextrose 5% in Water 50 ml @ 100 mls/hr IVPB Q8HR CHARISSA Rx#:[id number] Sodium Chloride 0.9% 1, 240 000 ml @ 100 mls/hr IV . Q10H CHARISSA Rx#:[id number] Oral 1260 240 Output: Urine 1999 1800 800 Other: Voiding Method Indwelling Catheter Indwelling Catheter Indwelling Catheter # Voids 1 1 # Bowel Movements 1 1 - Exam PHYSICAL EXAMINATION: HEENT: Head is atraumatic, normocephalic. Pupils equal, round. Neck is supple. There is no elevated jugular venous pressure. HEART EXAMINATION: Heart S1 and S2 irregularly irregular systolic ejection murmur heard CHEST EXAMINATION: His reveal diminished air entry bilateral bases with fine crackles to the bases. ABDOMEN: Soft, nontender. Bowel sounds are heard. No organomegaly noted. EXTREMITIES: Patient has an Anuel wrap to the left lower extremity, evidence of 1- 2+ edema, she has a right bqsyc-tqb-lbqj amputation with evidence of edema.. NEUROLOGIC patient is awake, alert and oriented -3. . - Labs CBC & Chem 7: 04/11/17 05:56 04/11/17 05:56 Labs: Abnormal Lab Results - Last 24 Hours (Table) 04/11/17 04/11/17 Range/Units 05:56 05:56 RBC 3.37 L (3.80-5.40) m/uL Hgb 10.0 L (11.4-16.0) gm/dL Hct 32.2 L (34.0-46.0) % MCHC 30.9 L (31.0-37.0) g/dL Chloride 92 L (98-107) mmol/L Carbon Dioxide 40 H* (22-30) mmol/L BUN 21 H (7-17) mg/dL Calcium 8.2 L (8.4-10.2) mg/dL AST 57 H (14-36) U/L Alkaline Phosphatase 388 H (38-126) U/L Albumin 2.6 L (3.5-5.0) g/dL Microbiology - Last 24 Hours (Table) 04/07/17 04:30 Blood Culture - Preliminary Blood No Growth after 96 hours Assessment and Plan (1) Diastolic CHF, acute on chronic Status: Acute (2) Chronic a-fib Status: Acute (3) HTN (hypertension) Status: Acute (4) Hyperlipemia Status: Acute (5) History of CVA (cerebrovascular accident) Status: Acute (6) Hypothyroid Status: Acute (7) Hx of AKA (above knee amputation) Status: Acute (8) Anemia Status: Acute Plan: From cardiology's perspective, we will recommend to continue the patient on current dose of IV Lasix. Check lytes BUN and creatinine in the morning as well as daily weights. DNP note has been reviewed, I agree with a documented findings and plan of care. Patient was seen and examined.
[2017-04-11] MEDS: NYSTATIN 100,000 UNIT/GM POWD 15 GM TOPICAL SCH ×2 (18:23→21:04)
[2017-04-11] MEDS: MONTELUKAST 10 MG TAB PO SCH (20:51)
[2017-04-11] MEDS: PRAVASTATIN SODIUM 20 MG TAB PO SCH (20:53)
[2017-04-12] MEDS: CLINDAMYCIN 600 MG in DEXTROSE 5% IN WATER 50 ML IVPB SCH ×6 (00:45→15:31)
[2017-04-12] MEDS: HYDROcodone/APAP 5-325MG 1 EACH TAB PO PRN ×2 (02:02→10:35)
[2017-04-12] MEDS: ALPRAZolam 0.25 MG TAB PO PRN ×3 (04:30→21:52)
[2017-04-12] MEDS: DIGOXIN 125 MCG TAB PO SCH (05:47)
[2017-04-12] MEDS: LEVOTHYROXINE 50 MCG TAB PO SCH (05:47)
[2017-04-12] MEDS: SODIUM CHLORIDE 0.9% 1,000 ML IV SCH (05:49)
[2017-04-12] MEDS: PREGABALIN 50 MG CAP PO SCH ×3 (05:49→22:12)
[2017-04-12 06:37] LABS: CH 29.2; HCT 32.7 % (34.0-46.0); HGB 10.3 gm/dL (11.4-16.0); Hypochromasia Moderate; MCH 29.8 pg (25.0-35.0); MCHC 31.5 g/dL (31.0-37.0); MCV 94.6 fL (80.0-100.0); Mean Platelet Volume 7.3; RBC 3.46 m/uL (3.80-5.40); RDW 15.2 % (11.5-15.5); WBC 12.5 k/uL (3.8-10.6)
[2017-04-12 07:02] LABS: ALT 41 U/L (9-52); AST 55 U/L (14-36); Alkaline Phosphatase 405 U/L (38-126); Blood Urea Nitrogen 22 mg/dL (7-17); Calcium 8.3 mg/dL (8.4-10.2); Chloride 90 mmol/L (98-107); Glucose 91 mg/dL (74-99); Non-African American GFR(MDRD) >60 (>60 ml/min/1.73 sqM); Potassium 4.3 mmol/L (3.5-5.1); Sodium 136 mmol/L (137-145); Total Bilirubin 0.6 mg/dL (0.2-1.3); Total Protein 7.1 g/dL (6.3-8.2)
[2017-04-12 07:41] LABS: Carbon Dioxide 39 mmol/L (22-30)
[2017-04-12 07:42] LABS: Anion Gap 7 mmol/L
--- NOTE | 2017-04-12 07:57 | XR ---
EXAMINATION TYPE: XR chest 1V DATE OF EXAM: 04/12/2017 COMPARISON: 04/10/2017 HISTORY: 82-year-old female CHF TECHNIQUE: Single frontal view of the chest is obtained. FINDINGS: Heart remains mildly enlarged. Multifocal patchy and confluent airspace opacity is present throughout the lungs. Opacity is more confluent within the right upper lobe. Advanced degenerative changes at t he shoulders. IMPRESSION: Continued multifocal airspace disease with slight worsening in the right upper lobe. Correlate for pu lmonary edema or multifocal pneumonia.
[2017-04-12] MEDS: DILTIAZEM ORAL 60 MG TAB PO SCH ×3 (08:41→21:33)
[2017-04-12] MEDS: FUROSEMIDE 10 MG/ML 10 ML VIAL IV SCH ×2 (08:41→21:33)
[2017-04-12] MEDS: PANTOPRAZOLE 40 MG TABLET PO SCH ×2 (08:41→21:33)
[2017-04-12] MEDS: POTASSIUM CHLORIDE ER 20 MEQ TAB.ER PO SCH ×2 (08:41→21:34)
[2017-04-12] MEDS: ALLOPURINOL 100 MG TAB PO SCH (08:41)
[2017-04-12] MEDS: AMIODARONE 200 MG TAB PO SCH (08:41)
[2017-04-12] MEDS: APIXABAN 5 MG TAB PO SCH ×2 (08:41→21:33)
[2017-04-12] MEDS: MAGNESIUM OXIDE 400 MG TAB PO SCH ×2 (08:41→21:33)
[2017-04-12] MEDS: FLUTICASONE 50MCG/SPRAY NASAL 16GM EA NOSTRIL SCH ×2 (08:42→21:33)
[2017-04-12] MEDS: NYSTATIN 100,000 UNIT/GM POWD 15 GM TOPICAL SCH ×2 (10:35→21:34)
--- NOTE | 2017-04-12 12:56 | P.PN ---
Subjective Principal diagnosis: CHF 04/11/2017 This is an 82-year-old female with history of hypertension, diastolic heart failure, morbid obesity, chronic persistent atrial fibrillation, prior right umjea-nfd-dkge amputation, who presented to the hospital with symptoms of progressively worsening shortness of breath. She is diuresing overall very well on IV Lasix. Her net fluid balance is more than 4 L in the past 24 hours. Left lower extremity has Anuel wraps in place with residual edema. Patient has an tkivh-nxp-crla amputation on the right with evidence of edema. She denies any cough, overall she does state her breathing is somewhat improved. Resting comfortably in bed. No evidence of fever or chills. She continues to be on Lasix 60 mg IV every 12 hours. She is also on long-term anticoagulation with Eliquis. Hemoglobin today 10.0, potassium 3.8, BUN 21, creatinine 0.9. Echocardiogram with Doppler study was performed which revealed moderate to severe aortic stenosis, ejection fraction 55-60%. Moderate concentric LVH, severe pulmonary hypertension. 04/12/2017 Patient seen and examined this morning, overall she does state that she's feeling better today. Continues to have excellent urine output. Sodium 136, BUN 22, creatinine 0.8. Continues to be on IV Lasix. Objective - Vital Signs Vital signs: Vital Signs Temp 96.1 F L 04/12/17 08:00 Pulse 78 04/12/17 08:00 Resp 18 04/12/17 08:00 BP 133/47 04/12/17 08:00 Pulse Ox 96 04/12/17 08:00 Intake & Output 04/11/17 04/12/17 04/12/17 18:59 06:59 18:59 Intake Total 360 236 Output Total 1600 800 600 Balance -1240 -800 -364 Weight 125 kg Intake: Oral 360 236 Output: Urine 1600 800 600 Other: Voiding Method Indwelling Catheter Indwelling Catheter Indwelling Catheter # Voids 1 # Bowel Movements 1 1 - Exam PHYSICAL EXAMINATION: HEENT: Head is atraumatic, normocephalic. Pupils equal, round. Neck is supple. There is no elevated jugular venous pressure. HEART EXAMINATION: Heart S1 and S2 irregularly irregular systolic ejection murmur heard CHEST EXAMINATION: His reveal diminished air entry bilateral bases with fine crackles to the bases. ABDOMEN: Soft, nontender. Bowel sounds are heard. No organomegaly noted. EXTREMITIES: Patient has an Anuel wrap to the left lower extremity, evidence of 1- 2+ edema, she has a right ktjmr-ppj-okle amputation with evidence of edema.. NEUROLOGIC patient is awake, alert and oriented -3. . - Labs CBC & Chem 7: 04/12/17 05:37 04/12/17 05:37 Labs: Abnormal Lab Results - Last 24 Hours (Table) 04/12/17 04/12/17 Range/Units 05:37 05:37 WBC 12.5 H (3.8-10.6) k/uL RBC 3.46 L (3.80-5.40) m/uL Hgb 10.3 L (11.4-16.0) gm/dL Hct 32.7 L (34.0-46.0) % Sodium 136 L (137-145) mmol/L Chloride 90 L (98-107) mmol/L Carbon Dioxide 39 H (22-30) mmol/L BUN 22 H (7-17) mg/dL Calcium 8.3 L (8.4-10.2) mg/dL AST 55 H (14-36) U/L Alkaline Phosphatase 405 H (38-126) U/L Albumin 2.7 L (3.5-5.0) g/dL Microbiology - Last 24 Hours (Table) 04/07/17 04:30 Blood Culture - Preliminary Blood No Growth after 120 hours Assessment and Plan (1) Diastolic CHF, acute on chronic Status: Acute (2) Chronic a-fib Status: Acute (3) HTN (hypertension) Status: Acute (4) Hyperlipemia Status: Acute (5) History of CVA (cerebrovascular accident) Status: Acute (6) Hypothyroid Status: Acute (7) Hx of AKA (above knee amputation) Status: Acute (8) Anemia Status: Acute Plan: From cardiology's perspective, we will recommend to continue the patient on current dose of IV Lasix. Check lytes BUN and creatinine in the morning as well as daily weights. DNP note has been reviewed, I agree with a documented findings and plan of care. Patient was seen and examined.
--- NOTE | 2017-04-12 13:01 | CT ---
EXAMINATION TYPE: CT chest wo con DATE OF EXAM: 04/12/2017 COMPARISON: Chest x-ray same date earlier time HISTORY: diffuse pulm infiltrate, abnormal chest x-ray CT DLP: 745.60 mGycm. Automated Exposure Control for Dose Reduction was Utilized. TECHNIQUE: CT scan of the thorax is performed without IV contrast. FINDINGS: There is motion on the exam. LUNGS: The lungs are diffusely abnormal with areas of groundglass opacity, airspace disease bilateral ly in upper and lower lobes. There is motion on the exam. Small pleural effusions are present bilater ally. Some pleural-based density, thickening present bilaterally. MEDIASTINUM: Lack of IV contrast is noted to limit evaluation for mediastinal and especially hilar ad enopathy. Retrocaval pretracheal lymph node is enlarged with short axis measurement of 16 mm. Aortico pulmonary window, prevascular nodes present. The heart is enlarged. No sizable pericardial effusion. Coronary artery calcifications are present. Pulmonary artery is enlarged. OTHER: Suspect the liver may be enlarged, spleen is enlarged. There is a calcified gallstone in the d ependent portion of the gallbladder. There is arthropathy in the shoulders. IMPRESSION: Consider mycoplasma pneumonia, acute interstitial pneumonitis, pulmonary edema, pulmonary hemorrhage, drug reaction and ARDS, pneumocystis pneumonia in the appropriate clinical setting. Cons ider bronchiolitis obliterans organizing pneumonia. Hepatosplenomegaly. Cholelithiasis. Noncontrast e xam.
--- NOTE | 2017-04-12 13:30 | P.PN ---
Subjective This is an 82-year-old female with a previous medical history significant for hypertension and hypertensive cardiovascular disease, chronic diastolic heart failure, history of morbid obesity, history of atrial fibrillation, patient was transferred from [facility] on the [facility] yesterday and her the care of Dr. Steward because of increased shortness breath with increased swelling in the left lower extremity, patient also did have a history of right above-knee amputation as well as on, patient was admitted to the hospital because of acute diastolic heart failure and she was started on Lasix 60 minute gram IV push every 12 hours and monitoring her input and output and daily weight. 04/08: Today the patient is feeling a lot better she denies any chest pain she is less short of breath, she is diuresing very well through the Payton catheter, she denies any abdominal pain, nausea, vomiting, her troponin was slightly elevated secondary to demand ischemia without any evidence of acute coronary syndrome. 04/09: Patient is feeling a little better today, she is complaining of pain in the mid epigastric area, she continues to require 6 L oxygen, she is maintained on Lasix 60 mg IV push every 12 hours, we will continue to monitor the patient weight and oxygen situation and follow-up with the patient very closely. 04/10: Patient continues to complain of shortness of breath and is currently on 6 L of nasal cannula but when decreased to 4 L patient's pulse ox is still 96%. Patient denies feeling any improvement today. Nurses concern that patient has some anxiety regarding to the oxygen use. She is currently on Lasix 60 mg IV every 12 hours which will be continued. Payton catheter in place with good urine output. Weight is down 1 kg from yesterday. Repeat chest x-ray shows correlate for diffuse pneumonia versus pulmonary edema. Findings stable. 04/11: Patient continues on Lasix IV 60 every 12 hours. Weight appears to be an accurate she has gained weight from yesterday. Repeat chest x-ray has been ordered for tomorrow by Dr. Martins. Pulse ox is currently 96% on 5 L and patient states she is normally on 4 L at [facility]. Patient feels that her breathing is about the same as yesterday. Payton remains in place with good urine output. 04/12: Patient states that her breathing status is a little bit better from yesterday. Noted that her weight has gone up the last 2 days for which Lasix will be increased to 80 mg every 12 hours. Patient has had good urine output. Patient is having a lot of anxiety for which Xanax will be increased to 4 times daily. Oxygen is to be kept at 4 L which is her home dose. CO2 is at 39. BUN 22 and creatinine 0.88. Objective - Vital Signs Vital signs: Vital Signs Temp 96.1 F L 04/12/17 08:00 Pulse 78 04/12/17 08:00 Resp 18 04/12/17 08:00 BP 133/47 04/12/17 08:00 Pulse Ox 96 04/12/17 08:00 Intake & Output 04/11/17 04/12/17 04/12/17 18:59 06:59 18:59 Intake Total 360 236 Output Total 1600 800 Balance -1240 -800 236 Weight 125 kg Intake: Oral 360 236 Output: Urine 1600 800 Other: Voiding Method Indwelling Catheter Indwelling Catheter Indwelling Catheter # Voids 1 # Bowel Movements 1 - Exam General appearance: Present: mild distress, obese - EENT Eyes: Present: anicteric sclerae, EOMI, PERRLA, normal appearance. Absent: ptosis, scleral icterus ENT: Present: hard of hearing, NA/AT, normal oropharynx. Absent: thrush Ears: bilateral: normal - Neck Neck: Present: normal ROM. Absent: lymphadenopathy, rigidity, stridor, thyromegaly Carotids: bilateral: upstroke normal Thyroid: bilateral: normal size - Respiratory Respiratory: bilateral: diminished, rales, rhonchi, wheezing, prolonged expiration, negative: dullness - Cardiovascular Rhythm: irregularly irregular Heart sounds: normal: S1, S2 Abnormal Heart Sounds: Present: systolic murmur. Absent: rub, click - Gastrointestinal General gastrointestinal: Present: distended, normal bowel sounds, soft. Absent : splenomegaly, tenderness, umbilical hernia, ventral hernia - Integumentary Integumentary: Present: normal, normal turgor - Neurologic Neurologic: Absent: CNII-XII intact - Musculoskeletal Musculoskeletal: Present: generalized weakness, strength equal bilaterally - Psychiatric Psychiatric: Present: A&O x's 3, appropriate affect, intact judgment & insight - Labs CBC & Chem 7: 04/12/17 05:37 04/12/17 05:37 Labs: Abnormal Lab Results - Last 24 Hours (Table) 04/12/17 04/12/17 Range/Units 05:37 05:37 WBC 12.5 H (3.8-10.6) k/uL RBC 3.46 L (3.80-5.40) m/uL Hgb 10.3 L (11.4-16.0) gm/dL Hct 32.7 L (34.0-46.0) % Sodium 136 L (137-145) mmol/L Chloride 90 L (98-107) mmol/L Carbon Dioxide 39 H (22-30) mmol/L BUN 22 H (7-17) mg/dL Calcium 8.3 L (8.4-10.2) mg/dL AST 55 H (14-36) U/L Alkaline Phosphatase 405 H (38-126) U/L Albumin 2.7 L (3.5-5.0) g/dL Microbiology - Last 24 Hours (Table) 04/07/17 04:30 Blood Culture - Preliminary Blood No Growth after 120 hours Assessment and Plan Plan: 1. Acute diastolic heart failure. Continue patient on Lasix 80 mg IV push every 12 hours, monitor input and output and daily weight, monitor the patient' s electrolytes, magnesium, echocardiogram was done and that showed moderate aortic valve stenosis with aortic regurgitation and mild mitral regurgitation with a normal ejection fraction 55-60% with moderate concentric left ventricular hypertrophy. 2. Chronic Atrial fibrillation. Continue patient on Eliquis 5 mg orally twice every day, Cardizem 60 mg orally 3 times every day, amiodarone 200 mg orally once every day. 3. Acute hypoxemic respiratory failure secondary to bibasilar pneumonia, most likely aspiration pneumonia, with acute diastolic heart failure we'll continue treatment as in Paragraph #1 plus continue the clindamycin and tobramycin, sputum culture, blood culture, pulmonary consultation and cardiology consultation. 4. UTI with sepsis. Continue patient on clindamycin as well as tobramycin, check urine culture. 5. Hypertension and hypertensive cardiovascular disease. Continue patient on Cardizem 60 mg orally 3 times every day. 6. History of CVA. Stable at this point in time. 7. Hyperlipidemia. Continue pravastatin 20 mg orally once every day. 8. Hypothyroidism. Continue Synthroid 50 mitral gram orally once every day. 9. Peripheral neuropathy. Continue Lyrica 75 mg orally twice every day. 10. Post right osoom-ayb-kecj amputation. Stable at this time. 11. Gout. Continue allopurinol 100 mg orally once every day. 12. DVT prophylaxis. Currently on Eliquis. 13. GI prophylaxis. Continue PPI. 14. Prognosis very guarded. Discharge plan: [facility] return Impression and plan of care have been directed as dictated by the signing physician. Amada Cantrell nurse practitioner acting as scribe for signing physician.
[2017-04-12] MEDS: IPRATROPIUM-ALBUTEROL 3 ML NEB INHALATION SCH ×2 (15:57→20:36)
[2017-04-12] MEDS ORDERED: LEVOFLOXACIN 750MG-D5W PMX 750 MG in DEXTROSE/WATER 1 150ML.BAG IVPB SCH (17:15)
--- NOTE | 2017-04-12 17:36 | P.PN ---
Subjective This is an 82-year-old female with a previous medical history significant for hypertension and hypertensive cardiovascular disease, chronic diastolic heart failure, history of morbid obesity, history of atrial fibrillation, patient was transferred from [facility] on the [place] yesterday and her the care of Dr. Steward because of increased shortness breath with increased swelling in the left lower extremity, patient also did have a history of right above-knee amputation as well as on, patient was admitted to the hospital because of acute diastolic heart failure and she was started on Lasix 60 minute gram IV push every 12 hours and monitoring her input and output and daily weight. On 04/10/2017 I'm seeing this patient in follow-up. The patient is diuresing nicely with IV Lasix. She has extensive edema in the left lower extremity. Note that she has a below-knee amputation on the right. Shortness of breath is gradually improving. The patient remains on 4-5 L of oxygen nasal cannula to maintain a saturation above 90%. Chest x-ray most consistent with CHF. Underlying pneumonia is felt to be doubtful. No change in mental status. No fever. No chills. No hemoptysis. No pleurisy. Oral intake is diminished. On 04/11/2017 I'm seeing this patient in follow-up. The patient is still on diuretics. The left lower extremity is been wrapped and there is still some residual edema in the left leg. She has an [id number] position on the right. Her net fluid balance is negative more than 4 L over the past 24 hours and overall she has diuresed more than 7-8 L. She is developing some degree of metabolic alkalosis due to diuresis. Her oxygenation is unchanged and the patient is on a 4 L of oxygen nasal cannula her pulse ox on 96%. She rests comfortably in bed. No cough or sputum production. No change in mental status. No fever or chills. No aspiration. The patient remains on Lasix 60 mg IV push every 12 hours. The patient is also on long-term anticoagulation with Eliquis. The patient is on clindamycin for any potential aspiration pneumonia. Urine cultures been negative. Blood culture been negative. The patient is seen again today 04/12/2017 in follow-up on the selective care unit. She is awake and alert in no acute distress. She does have continued high oxygen requirements of 4 L to maintain O2 saturations in the 90s. She has been afebrile. Hemodynamically stable. Her chest x-ray continues to show multifocal airspace disease slightly worse than the right upper lobe. Objective - Vital Signs Vital signs: Vital Signs Temp 98.0 F 04/12/17 15:52 Pulse 77 04/12/17 15:52 Resp 18 04/12/17 15:52 BP 128/46 04/12/17 15:52 Pulse Ox 97 04/12/17 15:52 Intake & Output 04/11/17 04/12/17 04/12/17 18:59 06:59 18:59 Intake Total 360 236 Output Total 1600 800 600 Balance -1240 -800 -364 Weight 125 kg Intake: Oral 360 236 Output: Urine 1600 800 600 Other: Voiding Method Indwelling Catheter Indwelling Catheter Indwelling Catheter # Voids 1 # Bowel Movements 1 1 - Exam Head exam was generally normal. There was no scleral icterus or corneal arcus. Mucous membranes were moist.Neck was supple and without jugular venous distension, thyromegaly, or carotid bruits. Carotids were easily palpable bilaterally. There was no adenopathy. Lung sounds are diminished bilaterally along with some bibasilar crackles. No wheezes. No rhonchi. Heart sounds are irregular, normal S1-S2, there is a prosthesis is a ejection murmur grade 3/6 heard throughout the precordium.Abdominal exam revealed normal bowel sounds. The abdomen was soft, non-tender, and without masses, organomegaly, or appreciable enlargement of the abdominal aorta. The patient has a ventral hernia.Examination of the extremities revealed increase in edema in the left lower extremity and the patient has a below-knee amputation on the right. Neurologically the patient is awake and alert. No focal neurological deficit at this point. - Labs CBC & Chem 7: 04/12/17 05:37 04/12/17 05:37 Labs: Abnormal Lab Results - Last 24 Hours (Table) 04/12/17 04/12/17 Range/Units 05:37 05:37 WBC 12.5 H (3.8-10.6) k/uL RBC 3.46 L (3.80-5.40) m/uL Hgb 10.3 L (11.4-16.0) gm/dL Hct 32.7 L (34.0-46.0) % Sodium 136 L (137-145) mmol/L Chloride 90 L (98-107) mmol/L Carbon Dioxide 39 H (22-30) mmol/L BUN 22 H (7-17) mg/dL Calcium 8.3 L (8.4-10.2) mg/dL AST 55 H (14-36) U/L Alkaline Phosphatase 405 H (38-126) U/L Albumin 2.7 L (3.5-5.0) g/dL Microbiology - Last 24 Hours (Table) 04/07/17 04:30 Blood Culture - Preliminary Blood No Growth after 120 hours Assessment and Plan Plan: Assessment 1 acute CHF exacerbation. The patient has CHF with diastolic dysfunction and secondary pulmonary edema. Echocardiogram showed moderate degree of aortic valve stenosis with regurgitation and mild MR with moderate degree of concentric left ventricular hypertrophy. Currently and IV Lasix. 2 chronic atrial fibrillation maintained on a combination of Cardizem and amiodarone and Eliquis 3 chronic hypoxic respiratory failure maintained on oxygen at 4 liters and cannula. A computed tomography scan of the chest revealed the possibilities of mycoplasma pneumonia, acute interstitial pneumonitis, pulmonary edema, pulmonary hemorrhage, ARDS, pneumocystic pneumonia, bronchiolitis obliterans organizing pneumonia. 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 Martins. Her chest x-ray and CAT scan were reviewed. We'll discontinue the clindamycin and start her on meropenem. She has been slow to progress. We'll continue with diuretics. Her overall prognosis remains quite poor based on the above-mentioned multiple comorbidities.
[2017-04-12] MEDS: methylPREDNISolone SOD SUCCI 40 MG/ML 1 ML VIAL IV SCH (17:37)
[2017-04-12] MEDS: MEROPENEM 1 GM in SODIUM CHLORIDE 0.9% 100 ML IVPB SCH (17:37)
[2017-04-12] MEDS ORDERED: CEFEPIME 2 GM in SODIUM CHLORIDE 0.9% 50 ML IVPB SCH (21:00)
[2017-04-12 21:32] LABS: Glucose,Whole Blood 168 mg/dL (75-99)
[2017-04-12] MEDS: MONTELUKAST 10 MG TAB PO SCH (21:33)
[2017-04-12] MEDS: PRAVASTATIN SODIUM 20 MG TAB PO SCH (21:34)
[2017-04-13] MEDS: MEROPENEM 1 GM in SODIUM CHLORIDE 0.9% 100 ML IVPB SCH ×3 (01:29→21:05)
[2017-04-13] MEDS: methylPREDNISolone SOD SUCCI 40 MG/ML 1 ML VIAL IV SCH ×4 (01:37→23:50)
[2017-04-13 06:24] LABS: CH 29.4; CHCM 31.4; HCT 32.9 % (34.0-46.0); HDW 3.09; HGB 10.5 gm/dL (11.4-16.0); Hypochromasia Slight; MCH 29.9 pg (25.0-35.0); MCHC 31.8 g/dL (31.0-37.0); MCV 94.1 fL (80.0-100.0); Mean Platelet Volume 7.1; RDW 15.3 % (11.5-15.5); WBC 10.2 k/uL (3.8-10.6)
[2017-04-13 06:43] LABS: ALT 42 U/L (9-52); AST 50 U/L (14-36); Alkaline Phosphatase 387 U/L (38-126); Blood Urea Nitrogen 24 mg/dL (7-17); Calcium 8.5 mg/dL (8.4-10.2); Chloride 89 mmol/L (98-107); Glucose 136 mg/dL (74-99); Non-African American GFR(MDRD) 59 (>60 ml/min/1.73 sqM); Potassium 4.9 mmol/L (3.5-5.1); Sodium 134 mmol/L (137-145); Total Bilirubin 0.7 mg/dL (0.2-1.3); Total Protein 7.3 g/dL (6.3-8.2)
[2017-04-13 06:51] LABS: Anion Gap 6 mmol/L; Carbon Dioxide 39 mmol/L (22-30)
[2017-04-13] MEDS: DIGOXIN 125 MCG TAB PO SCH (06:52)
[2017-04-13] MEDS: LEVOTHYROXINE 50 MCG TAB PO SCH (06:52)
[2017-04-13] MEDS: PREGABALIN 50 MG CAP PO SCH ×3 (06:53→21:17)
[2017-04-13] MEDS: IPRATROPIUM-ALBUTEROL 3 ML NEB INHALATION SCH ×2 (07:45→19:36)
[2017-04-13] MEDS: FLUTICASONE 50MCG/SPRAY NASAL 16GM EA NOSTRIL SCH ×2 (09:15→20:55)
[2017-04-13] MEDS: AMIODARONE 200 MG TAB PO SCH (09:15)
[2017-04-13] MEDS: DILTIAZEM ORAL 60 MG TAB PO SCH ×3 (09:15→20:55)
[2017-04-13] MEDS: PANTOPRAZOLE 40 MG TABLET PO SCH ×2 (09:15→20:56)
[2017-04-13] MEDS: MAGNESIUM OXIDE 400 MG TAB PO SCH ×2 (09:15→20:56)
[2017-04-13] MEDS: APIXABAN 5 MG TAB PO SCH ×2 (09:15→20:55)
[2017-04-13] MEDS: ALLOPURINOL 100 MG TAB PO SCH (09:15)
[2017-04-13] MEDS: FUROSEMIDE 10 MG/ML 10 ML VIAL IV SCH ×2 (09:22→21:17)
[2017-04-13] MEDS: NYSTATIN 100,000 UNIT/GM POWD 15 GM TOPICAL SCH ×2 (11:25→21:18)
[2017-04-13] MEDS: POTASSIUM CHLORIDE ER 20 MEQ TAB.ER PO SCH ×2 (11:25→21:18)
--- NOTE | 2017-04-13 12:07 | P.PN ---
Subjective This is an 82-year-old female with a previous medical history significant for hypertension and hypertensive cardiovascular disease, chronic diastolic heart failure, history of morbid obesity, history of atrial fibrillation, patient was transferred from [facility] on the [place] yesterday and her the care of Dr. Steward because of increased shortness breath with increased swelling in the left lower extremity, patient also did have a history of right above-knee amputation as well as on, patient was admitted to the hospital because of acute diastolic heart failure and she was started on Lasix 60 minute gram IV push every 12 hours and monitoring her input and output and daily weight. 04/08: Today the patient is feeling a lot better she denies any chest pain she is less short of breath, she is diuresing very well through the Payton catheter, she denies any abdominal pain, nausea, vomiting, her troponin was slightly elevated secondary to demand ischemia without any evidence of acute coronary syndrome. 04/09: Patient is feeling a little better today, she is complaining of pain in the mid epigastric area, she continues to require 6 L oxygen, she is maintained on Lasix 60 mg IV push every 12 hours, we will continue to monitor the patient weight and oxygen situation and follow-up with the patient very closely. 04/10: Patient continues to complain of shortness of breath and is currently on 6 L of nasal cannula but when decreased to 4 L patient's pulse ox is still 96%. Patient denies feeling any improvement today. Nurses concern that patient has some anxiety regarding to the oxygen use. She is currently on Lasix 60 mg IV every 12 hours which will be continued. Payton catheter in place with good urine output. Weight is down 1 kg from yesterday. Repeat chest x-ray shows correlate for diffuse pneumonia versus pulmonary edema. Findings stable. 04/11: Patient continues on Lasix IV 60 every 12 hours. Weight appears to be an accurate she has gained weight from yesterday. Repeat chest x-ray has been ordered for tomorrow by Dr. Martins. Pulse ox is currently 96% on 5 L and patient states she is normally on 4 L at [facility]. Patient feels that her breathing is about the same as yesterday. Payton remains in place with good urine output. 04/12: Patient states that her breathing status is a little bit better from yesterday. Noted that her weight has gone up the last 2 days for which Lasix will be increased to 80 mg every 12 hours. Patient has had good urine output. Patient is having a lot of anxiety for which Xanax will be increased to 4 times daily. Oxygen is to be kept at 4 L which is her home dose. CO2 is at 39. BUN 22 and creatinine 0.88. 04/13: Weight is down 3 kg from yesterday. Sodium is 134, chloride 89, BUN 24 and creatinine 0.92. Pulse ox is 96% on 4 L nasal cannula. Patient denies any chest pain or cough. She states she is still short of breath but feels a little bit better today. She didn't get a skin tear on her right arm yesterday when she went to CAT scan. CAT scan of the chest report states consider mycoplasma pneumonia, acute interstitial pneumonitis, pulmonary edema, posterior hemorrhage, drug reaction and ARDS, pneumocystic pneumonia, bronchiolitis obliterans organizing pneumonia. Hepatosplenomegaly, cholelithiasis. Legionella antigen and mycoplasma testing ordered. Lasix remains at 80 mg every 12 hours. Objective - Vital Signs Vital signs: Vital Signs Temp 97.8 F 04/13/17 04:00 Pulse 72 04/13/17 07:56 Resp 22 04/13/17 04:00 BP 140/65 04/13/17 04:00 Pulse Ox 96 04/13/17 07:46 Intake & Output 04/12/17 04/13/17 04/13/17 18:59 06:59 18:59 Intake Total 796 100 Output Total 600 1100 Balance 196 -1000 Weight 122 kg Intake: Intake, IV Titration 160 100 Amount Meropenem 1 gm In Sodium 100 100 Chloride 0.9% 100 ml @ 200 mls/hr IVPB Q8HR CHARISSA Rx#:[id number] Sodium Chloride 0.9% 1, 60 000 ml @ 100 mls/hr IV . Q10H CHARISSA Rx#:[id number] Oral 636 0 Output: Urine 600 1100 Uretheral (Payton) 200 Other: Voiding Method Indwelling Catheter Indwelling Catheter # Bowel Movements 1 - Exam General appearance: Present: mild distress, obese - EENT Eyes: Present: anicteric sclerae, EOMI, PERRLA, normal appearance. Absent: ptosis, scleral icterus ENT: Present: hard of hearing, NA/AT, normal oropharynx. Absent: thrush Ears: bilateral: normal - Neck Neck: Present: normal ROM. Absent: lymphadenopathy, rigidity, stridor, thyromegaly Carotids: bilateral: upstroke normal Thyroid: bilateral: normal size - Respiratory Respiratory: bilateral: diminished, rales, rhonchi, wheezing, prolonged expiration, negative: dullness - Cardiovascular Rhythm: irregularly irregular Heart sounds: normal: S1, S2 Abnormal Heart Sounds: Present: systolic murmur. Absent: rub, click - Gastrointestinal General gastrointestinal: Present: distended, normal bowel sounds, soft. Absent : splenomegaly, tenderness, umbilical hernia, ventral hernia - Integumentary Integumentary: Present: normal, normal turgor - Neurologic Neurologic: Absent: CNII-XII intact - Musculoskeletal Musculoskeletal: Present: generalized weakness, strength equal bilaterally - Psychiatric Psychiatric: Present: A&O x's 3, appropriate affect, intact judgment & insight - Labs CBC & Chem 7: 04/13/17 06:08 04/13/17 06:08 Labs: Abnormal Lab Results - Last 24 Hours (Table) 04/12/17 04/13/17 04/13/17 Range/Units 21:30 06:08 06:08 RBC 3.50 L (3.80-5.40) m/uL Hgb 10.5 L (11.4-16.0) gm/dL Hct 32.9 L (34.0-46.0) % Sodium 134 L (137-145) mmol/L Chloride 89 L (98-107) mmol/L Carbon Dioxide 39 H (22-30) mmol/L BUN 24 H (7-17) mg/dL Glucose 136 H (74-99) mg/dL POC Glucose (mg/dL) 168 H (75-99) mg/dL AST 50 H (14-36) U/L Alkaline Phosphatase 387 H (38-126) U/L Albumin 2.9 L (3.5-5.0) g/dL Microbiology - Last 24 Hours (Table) 04/07/17 04:30 Blood Culture - Final Blood No Growth after 144 hours Assessment and Plan Plan: 1. Acute diastolic heart failure. Continue patient on Lasix 80 mg IV push every 12 hours, monitor input and output and daily weight, monitor the patient' s electrolytes, magnesium, echocardiogram was done and that showed moderate aortic valve stenosis with aortic regurgitation and mild mitral regurgitation with a normal ejection fraction 55-60% with moderate concentric left ventricular hypertrophy. Mycoplasma and Legionella testing 2. Chronic Atrial fibrillation. Continue patient on Eliquis 5 mg orally twice every day, Cardizem 60 mg orally 3 times every day, amiodarone 200 mg orally once every day. 3. Acute hypoxemic respiratory failure secondary to bibasilar pneumonia, most likely aspiration pneumonia, with acute diastolic heart failure we'll continue treatment as in Paragraph #1 plus continue the clindamycin and tobramycin, sputum culture, blood culture, pulmonary consultation and cardiology consultation. 4. UTI with sepsis. Continue patient on clindamycin as well as tobramycin, check urine culture. 5. Hypertension and hypertensive cardiovascular disease. Continue patient on Cardizem 60 mg orally 3 times every day. 6. History of CVA. Stable at this point in time. 7. Hyperlipidemia. Continue pravastatin 20 mg orally once every day. 8. Hypothyroidism. Continue Synthroid 50 mitral gram orally once every day. 9. Peripheral neuropathy. Continue Lyrica 75 mg orally twice every day. 10. Post right euneg-eas-ripl amputation. Stable at this time. 11. Gout. Continue allopurinol 100 mg orally once every day. 12. DVT prophylaxis. Currently on Eliquis. 13. GI prophylaxis. Continue PPI. 14. Prognosis very guarded. Discharge plan: [facility] return Impression and plan of care have been directed as dictated by the signing physician. Amada Cantrell nurse practitioner acting as scribe for signing physician.
[2017-04-13] MEDS: ALPRAZolam 0.25 MG TAB PO PRN ×2 (13:42→20:55)
--- NOTE | 2017-04-13 14:36 | P.PN ---
Subjective This is an 82-year-old female with a previous medical history significant for hypertension and hypertensive cardiovascular disease, chronic diastolic heart failure, history of morbid obesity, history of atrial fibrillation, patient was transferred from [facility] on the [place] yesterday and her the care of Dr. Steward because of increased shortness breath with increased swelling in the left lower extremity, patient also did have a history of right above-knee amputation as well as on, patient was admitted to the hospital because of acute diastolic heart failure and she was started on Lasix 60 minute gram IV push every 12 hours and monitoring her input and output and daily weight. On 04/10/2017 I'm seeing this patient in follow-up. The patient is diuresing nicely with IV Lasix. She has extensive edema in the left lower extremity. Note that she has a below-knee amputation on the right. Shortness of breath is gradually improving. The patient remains on 4-5 L of oxygen nasal cannula to maintain a saturation above 90%. Chest x-ray most consistent with CHF. Underlying pneumonia is felt to be doubtful. No change in mental status. No fever. No chills. No hemoptysis. No pleurisy. Oral intake is diminished. On 04/11/2017 I'm seeing this patient in follow-up. The patient is still on diuretics. The left lower extremity is been wrapped and there is still some residual edema in the left leg. She has an [id number]-ana-[id number] position on the right. Her net fluid balance is negative more than 4 L over the past 24 hours and overall she has diuresed more than 7-8 L. She is developing some degree of metabolic alkalosis due to diuresis. Her oxygenation is unchanged and the patient is on a 4 L of oxygen nasal cannula her pulse ox on 96%. She rests comfortably in bed. No cough or sputum production. No change in mental status. No fever or chills. No aspiration. The patient remains on Lasix 60 mg IV push every 12 hours. The patient is also on long-term anticoagulation with Eliquis. The patient is on clindamycin for any potential aspiration pneumonia. Urine cultures been negative. Blood culture been negative. The patient is seen again today 04/12/2017 in follow-up on the selective care unit. She is awake and alert in no acute distress. She does have continued high oxygen requirements of 4 L to maintain O2 saturations in the 90s. She has been afebrile. Hemodynamically stable. Her chest x-ray continues to show multifocal airspace disease slightly worse than the right upper lobe. On 04/13/2017 I'm seeing this patient in follow-up. I reviewed the CAT scan of the chest from yesterday. There is diffuse interstitial breath and pulmonary infiltrates and the exact etiology is not clear. Rule out cardiogenic versus noncardiac pulmonary edema. The patient has been diuresed aggressively with IV Lasix. She was receiving 80 mg IV Lasix every 12 hours. She remains a significant amount of negative fluid balance, I would say at least 10 L over the past several days. No prerenal azotemia. Not a threat disturbance. On examination still still adamant this in the left lower extremity. The arms are still edematous. Crackles are seen and appreciated lung bases bilaterally. She still 40s about 2 by nasal cannula and pulse ox is around 96%. Based on her ongoing pulmonary infiltration, I broaden antibiotic coverage and put the patient IV Merrem. She was also started on IV Solu-Medrol. A follow-up chest x -ray will be obtained for tomorrow. Case was discussed with the primary care. No active aspiration although this cannot be completely ruled out. Objective - Vital Signs Vital signs: Vital Signs Temp 97.0 F L 04/13/17 12:00 Pulse 74 04/13/17 12:00 Resp 20 04/13/17 12:00 BP 130/45 04/13/17 12:00 Pulse Ox 94 L 04/13/17 12:00 Intake & Output 04/12/17 04/13/17 04/13/17 18:59 06:59 18:59 Intake Total 796 100 727 Output Total 600 1100 Balance 196 -1000 727 Weight 122 kg 122 kg Intake: Intake, IV Titration 160 100 100 Amount Meropenem 1 gm In Sodium 100 100 100 Chloride 0.9% 100 ml @ 200 mls/hr IVPB Q8HR CHARISSA Rx#:[id number] Sodium Chloride 0.9% 1, 60 000 ml @ 100 mls/hr IV . Q10H CHARISSA Rx#:[id number] Oral 636 0 627 Output: Urine 600 1100 Uretheral (Payton) 200 Other: Voiding Method Indwelling Catheter Indwelling Catheter Indwelling Catheter # Bowel Movements 1 - Exam Head exam was generally normal. There was no scleral icterus or corneal arcus. Mucous membranes were moist.Neck was supple and without jugular venous distension, thyromegaly, or carotid bruits. Carotids were easily palpable bilaterally. There was no adenopathy. Lung sounds are diminished bilaterally along with some bibasilar crackles. No wheezes. No rhonchi. Heart sounds are irregular, normal S1-S2, there is a prosthesis is a ejection murmur grade 3/6 heard throughout the precordium.Abdominal exam revealed normal bowel sounds. The abdomen was soft, non-tender, and without masses, organomegaly, or appreciable enlargement of the abdominal aorta. The patient has a ventral hernia.Examination of the extremities revealed increase in edema in the left lower extremity and the patient has a below-knee amputation on the right. Neurologically the patient is awake and alert. No focal neurological deficit at this point. - Labs CBC & Chem 7: 04/13/17 06:08 04/13/17 06:08 Labs: Abnormal Lab Results - Last 24 Hours (Table) 04/12/17 04/13/17 04/13/17 Range/Units 21:30 06:08 06:08 RBC 3.50 L (3.80-5.40) m/uL Hgb 10.5 L (11.4-16.0) gm/dL Hct 32.9 L (34.0-46.0) % Sodium 134 L (137-145) mmol/L Chloride 89 L (98-107) mmol/L Carbon Dioxide 39 H (22-30) mmol/L BUN 24 H (7-17) mg/dL Glucose 136 H (74-99) mg/dL POC Glucose (mg/dL) 168 H (75-99) mg/dL AST 50 H (14-36) U/L Alkaline Phosphatase 387 H (38-126) U/L Albumin 2.9 L (3.5-5.0) g/dL Microbiology - Last 24 Hours (Table) 04/07/17 04:30 Blood Culture - Final Blood No Growth after 144 hours Assessment and Plan Plan: Assessment 1 diffuse bilateral pulmonary infiltrates. Possible fluid overload with acute CHF exacerbation. The patient has CHF with diastolic dysfunction and secondary pulmonary edema. Noncardiogenic cause of pulmonary edema need to also to be considered including acute interstitial pneumonia S, acute atypical pneumonia S , acute lung injury from aspiration, acute hypersensitivity pneumonia/ eosinophilic pneumonia. Echocardiogram showed moderate degree of aortic valve stenosis with regurgitation and mild MR with moderate degree of concentric left ventricular hypertrophy. Currently and IV Lasix. 2 chronic atrial fibrillation maintained on a combination of Cardizem and amiodarone and Eliquis 3 chronic hypoxic respiratory failure maintained on oxygen at 4l/min cannula. 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 Continue IV Lasix. Repeat chest x-ray in the morning. The Merrem. IV Solu-Medrol. Aspiration precautions. Continue diuresis. Monitor electrolytes. Wean off FiO2 as tolerated. We'll continue to follow. Case was discussed with internal medicine.
--- NOTE | 2017-04-13 14:48 | P.PN ---
Subjective Principal diagnosis: CHF 04/11/2017 This is an 82-year-old female with history of hypertension, diastolic heart failure, morbid obesity, chronic persistent atrial fibrillation, prior right qpacz-hbu-ryap amputation, who presented to the hospital with symptoms of progressively worsening shortness of breath. She is diuresing overall very well on IV Lasix. Her net fluid balance is more than 4 L in the past 24 hours. Left lower extremity has Anuel wraps in place with residual edema. Patient has an xplec-cln-yfja amputation on the right with evidence of edema. She denies any cough, overall she does state her breathing is somewhat improved. Resting comfortably in bed. No evidence of fever or chills. She continues to be on Lasix 60 mg IV every 12 hours. She is also on long-term anticoagulation with Eliquis. Hemoglobin today 10.0, potassium 3.8, BUN 21, creatinine 0.9. Echocardiogram with Doppler study was performed which revealed moderate to severe aortic stenosis, ejection fraction 55-60%. Moderate concentric LVH, severe pulmonary hypertension. 04/12/2017 Patient seen and examined this morning, overall she does state that she's feeling better today. Continues to have excellent urine output. Sodium 136, BUN 22, creatinine 0.8. Continues to be on IV Lasix. 04/13/2017 Patient seen and examined this morning, feeling much better overall. Weight is down 3 kg today, creatinine 0.9. Objective - Vital Signs Vital signs: Vital Signs Temp 97.0 F L 04/13/17 12:00 Pulse 74 04/13/17 12:00 Resp 20 04/13/17 12:00 BP 130/45 04/13/17 12:00 Pulse Ox 94 L 04/13/17 12:00 Intake & Output 04/12/17 04/13/17 04/13/17 18:59 06:59 18:59 Intake Total 796 100 727 Output Total 600 1100 Balance 196 -1000 727 Weight 122 kg 122 kg Intake: Intake, IV Titration 160 100 100 Amount Meropenem 1 gm In Sodium 100 100 100 Chloride 0.9% 100 ml @ 200 mls/hr IVPB Q8HR [facility] Rx#:[id number] Sodium Chloride 0.9% 1, 60 000 ml @ 100 mls/hr IV . Q10H [facility] Rx#:[id number] Oral 636 0 627 Output: Urine 600 1100 Uretheral (Payton) 200 Other: Voiding Method Indwelling Catheter Indwelling Catheter Indwelling Catheter # Bowel Movements 1 - Exam PHYSICAL EXAMINATION: HEENT: Head is atraumatic, normocephalic. Pupils equal, round. Neck is supple. There is no elevated jugular venous pressure. HEART EXAMINATION: Heart S1 and S2 irregularly irregular systolic ejection murmur heard CHEST EXAMINATION: Lungs are clear to auscultation ABDOMEN: Soft, nontender. Bowel sounds are heard. No organomegaly noted. EXTREMITIES: Patient has an Anuel wrap to the left lower extremity, evidence of 1- 2+ edema, she has a right zfivf-qto-nomy amputation with evidence of edema.. NEUROLOGIC patient is awake, alert and oriented -3. . - Labs CBC & Chem 7: 04/13/17 06:08 04/13/17 06:08 Labs: Abnormal Lab Results - Last 24 Hours (Table) 04/12/17 04/13/17 04/13/17 Range/Units 21:30 06:08 06:08 RBC 3.50 L (3.80-5.40) m/uL Hgb 10.5 L (11.4-16.0) gm/dL Hct 32.9 L (34.0-46.0) % Sodium 134 L (137-145) mmol/L Chloride 89 L (98-107) mmol/L Carbon Dioxide 39 H (22-30) mmol/L BUN 24 H (7-17) mg/dL Glucose 136 H (74-99) mg/dL POC Glucose (mg/dL) 168 H (75-99) mg/dL AST 50 H (14-36) U/L Alkaline Phosphatase 387 H (38-126) U/L Albumin 2.9 L (3.5-5.0) g/dL Microbiology - Last 24 Hours (Table) 04/07/17 04:30 Blood Culture - Final Blood No Growth after 144 hours Assessment and Plan (1) Diastolic CHF, acute on chronic Status: Acute (2) Chronic a-fib Status: Acute (3) HTN (hypertension) Status: Acute (4) Hyperlipemia Status: Acute (5) History of CVA (cerebrovascular accident) Status: Acute (6) Hypothyroid Status: Acute (7) Hx of AKA (above knee amputation) Status: Acute (8) Anemia Status: Acute Plan: From cardiology's perspective, we will recommend to continue the patient on current dose of IV Lasix. Check lytes BUN and creatinine in the morning as well as daily weights. DNP note has been reviewed, I agree with a documented findings and plan of care. Patient was seen and examined.
[2017-04-13] MEDS: HYDROcodone/APAP 5-325MG 1 EACH TAB PO PRN (20:54)
[2017-04-13] MEDS: PRAVASTATIN SODIUM 20 MG TAB PO SCH (20:56)
[2017-04-13] MEDS: MONTELUKAST 10 MG TAB PO SCH (20:56)
[2017-04-13 21:16] LABS: Glucose,Whole Blood 149 mg/dL (75-99)
[2017-04-14 05:40] LABS: Glucose,Whole Blood 133 mg/dL (75-99)
[2017-04-14 05:54] LABS: Mycoplasma IgG Antibody (EIA) 0.69 INDEX (<=0.90); Mycoplasma IgM Antibody 0.18 INDEX (<=0.90)
[2017-04-14 06:04] LABS: CH 29.9; CHCM 31.4; HDW 2.86; Hypochromasia Slight; MCH 29.1 pg (25.0-35.0); MCHC 30.5 g/dL (31.0-37.0); MCV 95.6 fL (80.0-100.0); Mean Platelet Volume 7.6; RBC 3.76 m/uL (3.80-5.40); RDW 15.7 % (11.5-15.5); WBC 9.4 k/uL (3.8-10.6)
[2017-04-14 06:15] LABS: ALT 42 U/L (9-52); AST 40 U/L (14-36); Alkaline Phosphatase 387 U/L (38-126); Anion Gap 7 mmol/L; Blood Urea Nitrogen 29 mg/dL (7-17); Calcium 8.9 mg/dL (8.4-10.2); Chloride 90 mmol/L (98-107); Glucose 134 mg/dL (74-99); Non-African American GFR(MDRD) >60 (>60 ml/min/1.73 sqM); Potassium 4.6 mmol/L (3.5-5.1); Sodium 137 mmol/L (137-145); Total Bilirubin 0.5 mg/dL (0.2-1.3); Total Protein 7.1 g/dL (6.3-8.2)
[2017-04-14 06:34] LABS: Carbon Dioxide 40 mmol/L (22-30)
[2017-04-14] MEDS: LEVOTHYROXINE 50 MCG TAB PO SCH (06:37)
[2017-04-14] MEDS: PREGABALIN 50 MG CAP PO SCH ×3 (06:37→20:59)
[2017-04-14] MEDS: DIGOXIN 125 MCG TAB PO SCH (06:37)
[2017-04-14] MEDS: INSULIN LISPRO (humaLOG) 300 UNIT/3 ML VIAL SQ SCH ×4 (06:42→20:53)
[2017-04-14] MEDS: FLUTICASONE 50MCG/SPRAY NASAL 16GM EA NOSTRIL SCH ×2 (08:03→20:50)
[2017-04-14] MEDS: APIXABAN 5 MG TAB PO SCH ×2 (08:03→20:50)
[2017-04-14] MEDS: FUROSEMIDE 10 MG/ML 10 ML VIAL IV SCH ×2 (08:03→20:51)
[2017-04-14] MEDS: PANTOPRAZOLE 40 MG TABLET PO SCH ×2 (08:03→20:55)
[2017-04-14] MEDS: DILTIAZEM ORAL 60 MG TAB PO SCH ×3 (08:03→20:50)
[2017-04-14] MEDS: methylPREDNISolone SOD SUCCI 40 MG/ML 1 ML VIAL IV SCH ×2 (08:03→15:25)
[2017-04-14] MEDS: POTASSIUM CHLORIDE ER 20 MEQ TAB.ER PO SCH ×2 (08:03→20:55)
[2017-04-14] MEDS: AMIODARONE 200 MG TAB PO SCH (08:03)
[2017-04-14] MEDS: ALLOPURINOL 100 MG TAB PO SCH (08:04)
[2017-04-14] MEDS: MAGNESIUM OXIDE 400 MG TAB PO SCH ×2 (08:04→20:55)
[2017-04-14] MEDS: ALPRAZolam 0.25 MG TAB PO PRN ×2 (08:04→21:24)
[2017-04-14] MEDS: IPRATROPIUM-ALBUTEROL 3 ML NEB INHALATION SCH ×2 (08:09→19:30)
[2017-04-14] MEDS: MEROPENEM 1 GM in SODIUM CHLORIDE 0.9% 100 ML IVPB SCH ×2 (08:23→20:55)
[2017-04-14] MEDS: HYDROcodone/APAP 5-325MG 1 EACH TAB PO PRN (08:25)
--- NOTE | 2017-04-14 11:12 | P.PN ---
Subjective This is an 82-year-old female with a previous medical history significant for hypertension and hypertensive cardiovascular disease, chronic diastolic heart failure, history of morbid obesity, history of atrial fibrillation, patient was transferred from [facility] on the [place] yesterday and her the care of Dr. Steward because of increased shortness breath with increased swelling in the left lower extremity, patient also did have a history of right above-knee amputation as well as on, patient was admitted to the hospital because of acute diastolic heart failure and she was started on Lasix 60 minute gram IV push every 12 hours and monitoring her input and output and daily weight. 04/08: Today the patient is feeling a lot better she denies any chest pain she is less short of breath, she is diuresing very well through the Payton catheter, she denies any abdominal pain, nausea, vomiting, her troponin was slightly elevated secondary to demand ischemia without any evidence of acute coronary syndrome. 04/09: Patient is feeling a little better today, she is complaining of pain in the mid epigastric area, she continues to require 6 L oxygen, she is maintained on Lasix 60 mg IV push every 12 hours, we will continue to monitor the patient weight and oxygen situation and follow-up with the patient very closely. 04/10: Patient continues to complain of shortness of breath and is currently on 6 L of nasal cannula but when decreased to 4 L patient's pulse ox is still 96%. Patient denies feeling any improvement today. Nurses concern that patient has some anxiety regarding to the oxygen use. She is currently on Lasix 60 mg IV every 12 hours which will be continued. Payton catheter in place with good urine output. Weight is down 1 kg from yesterday. Repeat chest x-ray shows correlate for diffuse pneumonia versus pulmonary edema. Findings stable. 04/11: Patient continues on Lasix IV 60 every 12 hours. Weight appears to be an accurate she has gained weight from yesterday. Repeat chest x-ray has been ordered for tomorrow by Dr. Martins. Pulse ox is currently 96% on 5 L and patient states she is normally on 4 L at [facility]. Patient feels that her breathing is about the same as yesterday. Payton remains in place with good urine output. 04/12: Patient states that her breathing status is a little bit better from yesterday. Noted that her weight has gone up the last 2 days for which Lasix will be increased to 80 mg every 12 hours. Patient has had good urine output. Patient is having a lot of anxiety for which Xanax will be increased to 4 times daily. Oxygen is to be kept at 4 L which is her home dose. CO2 is at 39. BUN 22 and creatinine 0.88. 04/13: Weight is down 3 kg from yesterday. Sodium is 134, chloride 89, BUN 24 and creatinine 0.92. Pulse ox is 96% on 4 L nasal cannula. Patient denies any chest pain or cough. She states she is still short of breath but feels a little bit better today. She didn't get a skin tear on her right arm yesterday when she went to CAT scan. CAT scan of the chest report states consider mycoplasma pneumonia, acute interstitial pneumonitis, pulmonary edema, posterior hemorrhage, drug reaction and ARDS, pneumocystic pneumonia, bronchiolitis obliterans organizing pneumonia. Hepatosplenomegaly, cholelithiasis. Legionella antigen and mycoplasma testing ordered. Lasix remains at 80 mg every 12 hours. 04/14: Weight is down 2 kg from yesterday with good urine output. She remains on Lasix at 80 mg twice daily. SoluMedrol is a 40 mg every 8 hours. CO2 is 40. Mycoplasma came back negative. Legionella antigen is pending. Dr. Martins has changed her antibiotics to meropenem. Patient is complaining of feeling sleepy. Her shortness of breath is improved today. Anticipate discharge back to [facility] on Monday or Monday. Objective - Vital Signs Vital signs: Vital Signs Temp 98.0 F 04/14/17 08:00 Pulse 76 04/14/17 08:11 Resp 20 04/14/17 08:00 BP 126/47 04/14/17 08:00 Pulse Ox 98 04/14/17 08:00 Intake & Output 04/13/17 04/14/17 04/14/17 18:59 06:59 18:59 Intake Total 927 380 240 Output Total 1500 1800 Balance -573 -2272 240 Weight 122 kg 120 kg Intake: Intake, IV Titration 100 200 Amount Meropenem 1 gm In Sodium 200 Chloride 0.9% 100 ml @ 200 mls/hr IVPB Q12HR [facility] Rx#:[id number] Meropenem 1 gm In Sodium 100 Chloride 0.9% 100 ml @ 200 mls/hr IVPB Q8HR [facility] Rx#:[id number] Oral 827 180 240 Output: Urine 1500 1800 Uretheral (Payton) 700 Other: Voiding Method Indwelling Catheter Indwelling Catheter Indwelling Catheter # Bowel Movements 2 1 - Exam General appearance: Present: mild distress, obese - EENT Eyes: Present: anicteric sclerae, EOMI, PERRLA, normal appearance. Absent: ptosis, scleral icterus ENT: Present: hard of hearing, NA/AT, normal oropharynx. Absent: thrush Ears: bilateral: normal - Neck Neck: Present: normal ROM. Absent: lymphadenopathy, rigidity, stridor, thyromegaly Carotids: bilateral: upstroke normal Thyroid: bilateral: normal size - Respiratory Respiratory: bilateral: diminished, rales, rhonchi, wheezing, prolonged expiration, negative: dullness - Cardiovascular Rhythm: irregularly irregular Heart sounds: normal: S1, S2 Abnormal Heart Sounds: Present: systolic murmur. Absent: rub, click - Gastrointestinal General gastrointestinal: Present: distended, normal bowel sounds, soft. Absent : splenomegaly, tenderness, umbilical hernia, ventral hernia - Integumentary Integumentary: Present: normal, normal turgor - Neurologic Neurologic: Absent: CNII-XII intact - Musculoskeletal Musculoskeletal: Present: generalized weakness, strength equal bilaterally - Psychiatric Psychiatric: Present: A&O x's 3, appropriate affect, intact judgment & insight - Labs CBC & Chem 7: 04/14/17 05:37 04/14/17 05:37 Labs: Abnormal Lab Results - Last 24 Hours (Table) 04/13/17 04/14/17 04/14/17 Range/Units 21:13 05:37 05:37 RBC 3.76 L (3.80-5.40) m/uL Hgb 11.0 L (11.4-16.0) gm/dL MCHC 30.5 L (31.0-37.0) g/dL RDW 15.7 H (11.5-15.5) % Chloride 90 L (98-107) mmol/L Carbon Dioxide 40 H* (22-30) mmol/L BUN 29 H (7-17) mg/dL Glucose 134 H (74-99) mg/dL POC Glucose (mg/dL) 149 H (75-99) mg/dL AST 40 H (14-36) U/L Alkaline Phosphatase 387 H (38-126) U/L Albumin 2.9 L (3.5-5.0) g/dL 04/14/17 Range/Units 05:39 RBC (3.80-5.40) m/uL Hgb (11.4-16.0) gm/dL MCHC (31.0-37.0) g/dL RDW (11.5-15.5) % Chloride (98-107) mmol/L Carbon Dioxide (22-30) mmol/L BUN (7-17) mg/dL Glucose (74-99) mg/dL POC Glucose (mg/dL) 133 H (75-99) mg/dL AST (14-36) U/L Alkaline Phosphatase (38-126) U/L Albumin (3.5-5.0) g/dL Assessment and Plan Plan: 1. Acute diastolic heart failure. Continue patient on Lasix 80 mg IV push every 12 hours, monitor input and output and daily weight, monitor the patient' s electrolytes, magnesium, echocardiogram was done and that showed moderate aortic valve stenosis with aortic regurgitation and mild mitral regurgitation with a normal ejection fraction 55-60% with moderate concentric left ventricular hypertrophy. Mycoplasma and Legionella testing 2. Chronic Atrial fibrillation. Continue patient on Eliquis 5 mg orally twice every day, Cardizem 60 mg orally 3 times every day, amiodarone 200 mg orally once every day. 3. Acute hypoxemic respiratory failure secondary to bibasilar pneumonia, most likely aspiration pneumonia, with acute diastolic heart failure we'll continue treatment as in Paragraph #1 plus antibiotics have been changed by Dr. Martins to meropenem, Solu-Medrol, sputum culture, blood culture, pulmonary consultation and cardiology consultation. 4. UTI with sepsis. Continue patient on clindamycin as well as tobramycin, check urine culture. 5. Hypertension and hypertensive cardiovascular disease. Continue patient on Cardizem 60 mg orally 3 times every day. 6. History of CVA. Stable at this point in time. 7. Hyperlipidemia. Continue pravastatin 20 mg orally once every day. 8. Hypothyroidism. Continue Synthroid 50 mitral gram orally once every day. 9. Peripheral neuropathy. Continue Lyrica 75 mg orally twice every day. 10. Post right yyeic-ytd-ikkn amputation. Stable at this time. 11. Gout. Continue allopurinol 100 mg orally once every day. 12. DVT prophylaxis. Currently on Eliquis. 13. GI prophylaxis. Continue PPI. 14. Prognosis very guarded. Discharge plan: [facility] return on Monday or Monday Impression and plan of care have been directed as dictated by the signing physician. Amada Cantrell nurse practitioner acting as scribe for signing physician.
--- NOTE | 2017-04-14 11:48 | XR ---
EXAMINATION TYPE: XR chest 1V DATE OF EXAM: 04/14/2017 CLINICAL HISTORY: Difficulty breathing progress study. TECHNIQUE: Single AP portable upright view of the chest is obtained. COMPARISON: Chest x-ray and CT chest from 2 days earlier. FINDINGS: There is persistent cardiomegaly with atherosclerotic thoracic aorta. There is persistent bilateral multifocal opacities consistent with multifocal edema and/or infiltrates. Small to tiny amos ateral pleural effusions on CT are less well seen on plain films. Advanced degenerative change right glenohumeral joint is redemonstrated. IMPRESSION: Overall stable findings, favor at least component of CHF exacerbation as there is cardi omegaly with multifocal bilateral alveolar edema suspected. Underlying infiltrates however are also s uspected. No significant change from 2 days earlier.
[2017-04-14 11:53] LABS: Glucose,Whole Blood 136 mg/dL (75-99)
[2017-04-14] MEDS: NYSTATIN 100,000 UNIT/GM POWD 15 GM TOPICAL SCH ×2 (12:23→20:56)
--- NOTE | 2017-04-14 14:11 | P.PN ---
Subjective This is an 82-year-old female with a previous medical history significant for hypertension and hypertensive cardiovascular disease, chronic diastolic heart failure, history of morbid obesity, history of atrial fibrillation, patient was transferred from [facility] on the [place] yesterday and her the care of Dr. Steward because of increased shortness breath with increased swelling in the left lower extremity, patient also did have a history of right above-knee amputation as well as on, patient was admitted to the hospital because of acute diastolic heart failure and she was started on Lasix 60 minute gram IV push every 12 hours and monitoring her input and output and daily weight. On 04/10/2017 I'm seeing this patient in follow-up. The patient is diuresing nicely with IV Lasix. She has extensive edema in the left lower extremity. Note that she has a below-knee amputation on the right. Shortness of breath is gradually improving. The patient remains on 4-5 L of oxygen nasal cannula to maintain a saturation above 90%. Chest x-ray most consistent with CHF. Underlying pneumonia is felt to be doubtful. No change in mental status. No fever. No chills. No hemoptysis. No pleurisy. Oral intake is diminished. On 04/11/2017 I'm seeing this patient in follow-up. The patient is still on diuretics. The left lower extremity is been wrapped and there is still some residual edema in the left leg. She has an gpbxz-zdx-njee position on the right. Her net fluid balance is negative more than 4 L over the past 24 hours and overall she has diuresed more than 7-8 L. She is developing some degree of metabolic alkalosis due to diuresis. Her oxygenation is unchanged and the patient is on a 4 L of oxygen nasal cannula her pulse ox on 96%. She rests comfortably in bed. No cough or sputum production. No change in mental status. No fever or chills. No aspiration. The patient remains on Lasix 60 mg IV push every 12 hours. The patient is also on long-term anticoagulation with Eliquis. The patient is on clindamycin for any potential aspiration pneumonia. Urine cultures been negative. Blood culture been negative. The patient is seen again today 04/12/2017 in follow-up on the selective care unit. She is awake and alert in no acute distress. She does have continued high oxygen requirements of 4 L to maintain O2 saturations in the 90s. She has been afebrile. Hemodynamically stable. Her chest x-ray continues to show multifocal airspace disease slightly worse than the right upper lobe. On 04/13/2017 I'm seeing this patient in follow-up. I reviewed the CAT scan of the chest from yesterday. There is diffuse interstitial breath and pulmonary infiltrates and the exact etiology is not clear. Rule out cardiogenic versus noncardiac pulmonary edema. The patient has been diuresed aggressively with IV Lasix. She was receiving 80 mg IV Lasix every 12 hours. She remains a significant amount of negative fluid balance, I would say at least 10 L over the past several days. No prerenal azotemia. Not a threat disturbance. On examination still still adamant this in the left lower extremity. The arms are still edematous. Crackles are seen and appreciated lung bases bilaterally. She still 40s about 2 by nasal cannula and pulse ox is around 96%. Based on her ongoing pulmonary infiltration, I broaden antibiotic coverage and put the patient IV Merrem. She was also started on IV Solu-Medrol. A follow-up chest x -ray will be obtained for tomorrow. Case was discussed with the primary care. No active aspiration although this cannot be completely ruled out. On 04/14/2017, the patient is being seen in follow-up. She still diuresing aggressively and she is still in a negative fluid balance. Today's chest x-ray still showing beta pulmonary infiltrates however I would say there may be some interval improvement in the volume status. The patient is more active and interactive. She is conversing. She denies having any respiratory distress at rest. Left lower extremities improving. Note that the patient has an amputation on the right. No fever. No chills. No chest pain. She is still on oxygen at 4 L/m nasal cannula. She was started on IV Solu-Medrol. She was also started on IV Merrem. She is on long-term anticoagulation. No other significant events overnight. Objective - Vital Signs Vital signs: Vital Signs Temp 98.1 F 04/14/17 12:00 Pulse 64 04/14/17 12:00 Resp 18 04/14/17 12:00 BP 133/60 04/14/17 12:00 Pulse Ox 97 04/14/17 12:00 Intake & Output 04/13/17 04/14/17 04/14/17 18:59 06:59 18:59 Intake Total 927 380 540 Output Total 1500 1800 850 Balance -345 -9597 -928 Weight 122 kg 120 kg Intake: Intake, IV Titration 100 200 Amount Meropenem 1 gm In Sodium 200 Chloride 0.9% 100 ml @ 200 mls/hr IVPB Q12HR [facility] Rx#:[id number] Meropenem 1 gm In Sodium 100 Chloride 0.9% 100 ml @ 200 mls/hr IVPB Q8HR [facility] Rx#:[id number] Oral 827 180 540 Output: Urine 1500 1800 850 Uretheral (Payton) 700 Other: Voiding Method Indwelling Catheter Indwelling Catheter Indwelling Catheter # Bowel Movements 2 1 - Exam Head exam was generally normal. There was no scleral icterus or corneal arcus. Mucous membranes were moist.Neck was supple and without jugular venous distension, thyromegaly, or carotid bruits. Carotids were easily palpable bilaterally. There was no adenopathy. Lung sounds are diminished bilaterally along with some bibasilar crackles. No wheezes. No rhonchi. Heart sounds are irregular, normal S1-S2, there is a prosthesis is a ejection murmur grade 3/6 heard throughout the precordium.Abdominal exam revealed normal bowel sounds. The abdomen was soft, non-tender, and without masses, organomegaly, or appreciable enlargement of the abdominal aorta. The patient has a ventral hernia.Examination of the extremities revealed increase in edema in the left lower extremity and the patient has a below-knee amputation on the right. Neurologically the patient is awake and alert. No focal neurological deficit at this point. - Labs CBC & Chem 7: 04/14/17 05:37 04/14/17 05:37 Labs: Abnormal Lab Results - Last 24 Hours (Table) 04/13/17 04/14/17 04/14/17 Range/Units 21:13 05:37 05:37 RBC 3.76 L (3.80-5.40) m/uL Hgb 11.0 L (11.4-16.0) gm/dL MCHC 30.5 L (31.0-37.0) g/dL RDW 15.7 H (11.5-15.5) % Chloride 90 L (98-107) mmol/L Carbon Dioxide 40 H* (22-30) mmol/L BUN 29 H (7-17) mg/dL Glucose 134 H (74-99) mg/dL POC Glucose (mg/dL) 149 H (75-99) mg/dL AST 40 H (14-36) U/L Alkaline Phosphatase 387 H (38-126) U/L Albumin 2.9 L (3.5-5.0) g/dL 04/14/17 04/14/17 Range/Units 05:39 11:43 RBC (3.80-5.40) m/uL Hgb (11.4-16.0) gm/dL MCHC (31.0-37.0) g/dL RDW (11.5-15.5) % Chloride (98-107) mmol/L Carbon Dioxide (22-30) mmol/L BUN (7-17) mg/dL Glucose (74-99) mg/dL POC Glucose (mg/dL) 133 H 136 H (75-99) mg/dL AST (14-36) U/L Alkaline Phosphatase (38-126) U/L Albumin (3.5-5.0) g/dL Assessment and Plan Plan: Assessment 1 diffuse bilateral pulmonary infiltrates. Possible fluid overload with acute CHF exacerbation. The patient has CHF with diastolic dysfunction and secondary pulmonary edema. Noncardiogenic cause of pulmonary edema need to also to be considered including acute interstitial pneumonia S, acute atypical pneumonia S , acute lung injury from aspiration, acute hypersensitivity pneumonia/ eosinophilic pneumonia. Echocardiogram showed moderate degree of aortic valve stenosis with regurgitation and mild MR with moderate degree of concentric left ventricular hypertrophy. Currently and IV Lasix. On 04/14/2017, the differential diagnosis remains the same although I'm more inclined to think that this is probably fluids than inflammatory pulmonary infiltrates. Continue diuretics. Follow-up chest x-ray in the morning. Oxygenation is unchanged and the patient is on 47 oxygen nasal cannula. No chest pain. No aspiration. Clinically much more alert and awake. 2 chronic atrial fibrillation maintained on a combination of Cardizem and amiodarone and Eliquis 3 chronic hypoxic respiratory failure maintained on oxygen at 4l/min cannula. 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 Continue IV Lasix. Repeat chest x-ray in the morning. The Merrem. IV Solu-Medrol. Aspiration precautions. Continue diuresis. Monitor electrolytes. Wean off FiO2 as tolerated. Follow-up chest x-ray in the morning. Had a discussion with her primary care physician. I have a feeding that the patient's today's chest x- ray shows some improvement in the volume status. We'll repeat a chest x-ray in a.m. The patient is still diuresing. We'll monitor the electrolytes. We'll follow.
--- NOTE | 2017-04-14 14:35 | P.PN ---
Subjective Principal diagnosis: CHF 04/11/2017 This is an 82-year-old female with history of hypertension, diastolic heart failure, morbid obesity, chronic persistent atrial fibrillation, prior right eqdzq-qgn-jpec amputation, who presented to the hospital with symptoms of progressively worsening shortness of breath. She is diuresing overall very well on IV Lasix. Her net fluid balance is more than 4 L in the past 24 hours. Left lower extremity has Anuel wraps in place with residual edema. Patient has an sxgsy-mkj-xnwc amputation on the right with evidence of edema. She denies any cough, overall she does state her breathing is somewhat improved. Resting comfortably in bed. No evidence of fever or chills. She continues to be on Lasix 60 mg IV every 12 hours. She is also on long-term anticoagulation with Eliquis. Hemoglobin today 10.0, potassium 3.8, BUN 21, creatinine 0.9. Echocardiogram with Doppler study was performed which revealed moderate to severe aortic stenosis, ejection fraction 55-60%. Moderate concentric LVH, severe pulmonary hypertension. 04/12/2017 Patient seen and examined this morning, overall she does state that she's feeling better today. Continues to have excellent urine output. Sodium 136, BUN 22, creatinine 0.8. Continues to be on IV Lasix. 04/13/2017 Patient seen and examined this morning, feeling much better overall. Weight is down 3 kg today, creatinine 0.9. 04/14/2017 Patient seen and examined this morning, weight is down 2 kg today. Feeling better every day. Continues to be on IV Lasix. Creatinine 0.9. Objective - Vital Signs Vital signs: Vital Signs Temp 98.1 F 04/14/17 12:00 Pulse 64 04/14/17 12:00 Resp 18 04/14/17 12:00 BP 133/60 04/14/17 12:00 Pulse Ox 97 04/14/17 12:00 Intake & Output 04/13/17 04/14/17 04/14/17 18:59 06:59 18:59 Intake Total 927 380 540 Output Total 1500 4298 647 Balance -573 -1420 -310 Weight 122 kg 120 kg Intake: Intake, IV Titration 100 200 Amount Meropenem 1 gm In Sodium 200 Chloride 0.9% 100 ml @ 200 mls/hr IVPB Q12HR [facility] Rx#:[id number] Meropenem 1 gm In Sodium 100 Chloride 0.9% 100 ml @ 200 mls/hr IVPB Q8HR [facility] Rx#:[id number] Oral 827 180 540 Output: Urine 1500 1800 850 Uretheral (Payton) 700 Other: Voiding Method Indwelling Catheter Indwelling Catheter Indwelling Catheter # Bowel Movements 2 1 - Exam PHYSICAL EXAMINATION: HEENT: Head is atraumatic, normocephalic. Pupils equal, round. Neck is supple. There is no elevated jugular venous pressure. HEART EXAMINATION: Heart S1 and S2 irregularly irregular systolic ejection murmur heard CHEST EXAMINATION: Lungs are clear to auscultation ABDOMEN: Soft, nontender. Bowel sounds are heard. No organomegaly noted. EXTREMITIES: Patient has an Anuel wrap to the left lower extremity, evidence of 1- 2+ edema, she has a right gzcwz-yxz-meoo amputation with evidence of edema.. NEUROLOGIC patient is awake, alert and oriented -3. . - Labs CBC & Chem 7: 04/14/17 05:37 04/14/17 05:37 Labs: Abnormal Lab Results - Last 24 Hours (Table) 04/13/17 04/14/17 04/14/17 Range/Units 21:13 05:37 05:37 RBC 3.76 L (3.80-5.40) m/uL Hgb 11.0 L (11.4-16.0) gm/dL MCHC 30.5 L (31.0-37.0) g/dL RDW 15.7 H (11.5-15.5) % Chloride 90 L (98-107) mmol/L Carbon Dioxide 40 H* (22-30) mmol/L BUN 29 H (7-17) mg/dL Glucose 134 H (74-99) mg/dL POC Glucose (mg/dL) 149 H (75-99) mg/dL AST 40 H (14-36) U/L Alkaline Phosphatase 387 H (38-126) U/L Albumin 2.9 L (3.5-5.0) g/dL 04/14/17 04/14/17 Range/Units 05:39 11:43 RBC (3.80-5.40) m/uL Hgb (11.4-16.0) gm/dL MCHC (31.0-37.0) g/dL RDW (11.5-15.5) % Chloride (98-107) mmol/L Carbon Dioxide (22-30) mmol/L BUN (7-17) mg/dL Glucose (74-99) mg/dL POC Glucose (mg/dL) 133 H 136 H (75-99) mg/dL AST (14-36) U/L Alkaline Phosphatase (38-126) U/L Albumin (3.5-5.0) g/dL Assessment and Plan (1) Diastolic CHF, acute on chronic Status: Acute (2) Chronic a-fib Status: Acute (3) HTN (hypertension) Status: Acute (4) Hyperlipemia Status: Acute (5) History of CVA (cerebrovascular accident) Status: Acute (6) Hypothyroid Status: Acute (7) Hx of AKA (above knee amputation) Status: Acute (8) Anemia Status: Acute Plan: From cardiology's perspective, we will recommend to continue the patient on current dose of IV Lasix. Check lytes BUN and creatinine in the morning as well as daily weights. DNP note has been reviewed, I agree with a documented findings and plan of care. Patient was seen and examined.
[2017-04-14 16:50] LABS: Glucose,Whole Blood 123 mg/dL (75-99)
[2017-04-14 20:49] LABS: Glucose,Whole Blood 147 mg/dL (75-99)
[2017-04-14] MEDS: MONTELUKAST 10 MG TAB PO SCH (20:55)
[2017-04-14] MEDS: PRAVASTATIN SODIUM 20 MG TAB PO SCH (20:56)
[2017-04-15] MEDS: methylPREDNISolone SOD SUCCI 40 MG/ML 1 ML VIAL IV SCH ×4 (00:30→23:01)
[2017-04-15] MEDS: PREGABALIN 50 MG CAP PO SCH ×3 (06:46→19:58)
[2017-04-15 07:47] LABS: Anisocytosis Slight; CH 29.9; CHCM 31.2; HCT 32.9 % (34.0-46.0); HDW 2.75; HGB 10.2 gm/dL (11.4-16.0); Hypochromasia Slight; MCH 29.9 pg (25.0-35.0); MCV 96.3 fL (80.0-100.0); Mean Platelet Volume 7.5; RBC 3.42 m/uL (3.80-5.40); RDW 16.1 % (11.5-15.5)
[2017-04-15 07:57] LABS: Glucose,Whole Blood 119 mg/dL (75-99)
[2017-04-15 08:07] LABS: ALT 45 U/L (9-52); AST 45 U/L (14-36); Alkaline Phosphatase 358 U/L (38-126); Blood Urea Nitrogen 36 mg/dL (7-17); Calcium 8.7 mg/dL (8.4-10.2); Chloride 92 mmol/L (98-107); Glucose 119 mg/dL (74-99); Non-African American GFR(MDRD) >60 (>60 ml/min/1.73 sqM); Potassium 4.7 mmol/L (3.5-5.1); Sodium 139 mmol/L (137-145); Total Bilirubin 0.4 mg/dL (0.2-1.3); Total Protein 6.6 g/dL (6.3-8.2)
[2017-04-15] MEDS: DILTIAZEM ORAL 60 MG TAB PO SCH ×3 (08:11→19:58)
[2017-04-15] MEDS: MEROPENEM 1 GM in SODIUM CHLORIDE 0.9% 100 ML IVPB SCH ×2 (08:11→21:20)
[2017-04-15] MEDS: FLUTICASONE 50MCG/SPRAY NASAL 16GM EA NOSTRIL SCH ×2 (08:11→19:59)
[2017-04-15] MEDS: FUROSEMIDE 10 MG/ML 10 ML VIAL IV SCH ×2 (08:11→19:58)
[2017-04-15] MEDS: PANTOPRAZOLE 40 MG TABLET PO SCH ×2 (08:12→21:20)
[2017-04-15] MEDS: MAGNESIUM OXIDE 400 MG TAB PO SCH ×2 (08:12→19:57)
[2017-04-15] MEDS: AMIODARONE 200 MG TAB PO SCH (08:12)
[2017-04-15] MEDS: DIGOXIN 125 MCG TAB PO SCH (08:12)
[2017-04-15] MEDS: POTASSIUM CHLORIDE ER 20 MEQ TAB.ER PO SCH ×2 (08:12→19:58)
[2017-04-15] MEDS: ALLOPURINOL 100 MG TAB PO SCH (08:12)
[2017-04-15] MEDS: LEVOTHYROXINE 50 MCG TAB PO SCH (08:12)
[2017-04-15] MEDS: APIXABAN 5 MG TAB PO SCH ×2 (08:12→19:55)
[2017-04-15 08:13] LABS: Anion Gap 7 mmol/L
[2017-04-15] MEDS: INSULIN LISPRO (humaLOG) 300 UNIT/3 ML VIAL SQ SCH ×4 (08:14→22:22)
[2017-04-15 08:15] LABS: Carbon Dioxide 40 mmol/L (22-30)
[2017-04-15] MEDS: ALPRAZolam 0.25 MG TAB PO PRN ×3 (08:17→21:30)
[2017-04-15] MEDS: IPRATROPIUM-ALBUTEROL 3 ML NEB INHALATION SCH ×2 (09:41→19:24)
[2017-04-15] MEDS: NYSTATIN 100,000 UNIT/GM POWD 15 GM TOPICAL SCH ×2 (10:31→21:20)
--- NOTE | 2017-04-15 11:26 | XR ---
EXAMINATION TYPE: XR chest 1V DATE OF EXAM: 04/15/2017 COMPARISON: 04/14/2017 HISTORY: 82-year-old female CHF, pneumonia TECHNIQUE: Single frontal view of the chest is obtained. FINDINGS: Heart is mildly enlarged. Diffuse interstitial and multifocal patchy airspace opacity. There is some improving aeration in the right upper lobe. Trace right effusion. Atherosclerotic arch calcifications . IMPRESSION: Cardiomegaly with continued diffuse interstitial and multifocal airspace disease. Some improving aera tion on the right. Trace right effusion.
[2017-04-15 12:15] LABS: Glucose,Whole Blood 193 mg/dL (75-99)
--- NOTE | 2017-04-15 13:55 | P.PN ---
Subjective This is an 82-year-old female with a previous medical history significant for hypertension and hypertensive cardiovascular disease, chronic diastolic heart failure, history of morbid obesity, history of atrial fibrillation, patient was transferred from [facility] on the [place] yesterday and her the care of Dr. Steward because of increased shortness breath with increased swelling in the left lower extremity, patient also did have a history of right above-knee amputation as well as on, patient was admitted to the hospital because of acute diastolic heart failure and she was started on Lasix 60 minute gram IV push every 12 hours and monitoring her input and output and daily weight. On 04/10/2017 I'm seeing this patient in follow-up. The patient is diuresing nicely with IV Lasix. She has extensive edema in the left lower extremity. Note that she has a below-knee amputation on the right. Shortness of breath is gradually improving. The patient remains on 4-5 L of oxygen nasal cannula to maintain a saturation above 90%. Chest x-ray most consistent with CHF. Underlying pneumonia is felt to be doubtful. No change in mental status. No fever. No chills. No hemoptysis. No pleurisy. Oral intake is diminished. On 04/11/2017 I'm seeing this patient in follow-up. The patient is still on diuretics. The left lower extremity is been wrapped and there is still some residual edema in the left leg. She has an rhdwa-xwx-yogk position on the right. Her net fluid balance is negative more than 4 L over the past 24 hours and overall she has diuresed more than 7-8 L. She is developing some degree of metabolic alkalosis due to diuresis. Her oxygenation is unchanged and the patient is on a 4 L of oxygen nasal cannula her pulse ox on 96%. She rests comfortably in bed. No cough or sputum production. No change in mental status. No fever or chills. No aspiration. The patient remains on Lasix 60 mg IV push every 12 hours. The patient is also on long-term anticoagulation with Eliquis. The patient is on clindamycin for any potential aspiration pneumonia. Urine cultures been negative. Blood culture been negative. The patient is seen again today 04/12/2017 in follow-up on the selective care unit. She is awake and alert in no acute distress. She does have continued high oxygen requirements of 4 L to maintain O2 saturations in the 90s. She has been afebrile. Hemodynamically stable. Her chest x-ray continues to show multifocal airspace disease slightly worse than the right upper lobe. On 04/13/2017 I'm seeing this patient in follow-up. I reviewed the CAT scan of the chest from yesterday. There is diffuse interstitial breath and pulmonary infiltrates and the exact etiology is not clear. Rule out cardiogenic versus noncardiac pulmonary edema. The patient has been diuresed aggressively with IV Lasix. She was receiving 80 mg IV Lasix every 12 hours. She remains a significant amount of negative fluid balance, I would say at least 10 L over the past several days. No prerenal azotemia. Not a threat disturbance. On examination still still adamant this in the left lower extremity. The arms are still edematous. Crackles are seen and appreciated lung bases bilaterally. She still 40s about 2 by nasal cannula and pulse ox is around 96%. Based on her ongoing pulmonary infiltration, I broaden antibiotic coverage and put the patient IV Merrem. She was also started on IV Solu-Medrol. A follow-up chest x -ray will be obtained for tomorrow. Case was discussed with the primary care. No active aspiration although this cannot be completely ruled out. On 04/14/2017, the patient is being seen in follow-up. She still diuresing aggressively and she is still in a negative fluid balance. Today's chest x-ray still showing beta pulmonary infiltrates however I would say there may be some interval improvement in the volume status. The patient is more active and interactive. She is conversing. She denies having any respiratory distress at rest. Left lower extremities improving. Note that the patient has an amputation on the right. No fever. No chills. No chest pain. She is still on oxygen at 4 L/m nasal cannula. She was started on IV Solu-Medrol. She was also started on IV Merrem. She is on long-term anticoagulation. No other significant events overnight. The patient is seen again today 04/15/2017 in follow-up on the regular medical floor. She is currently resting quite comfortably in bed. She did have some Xanax this morning. She does arouse to verbal stimuli. She denies any worsening shortness of breath, cough or congestion. Her chest x-ray shows improved aeration more so on the left. Slight improvement on the right. She remains in a negative balance. There is less peripheral edema. Maintaining good O2 saturations in the high 90s on 4 L/m per nasal cannula. Objective - Vital Signs Vital signs: Vital Signs Temp 97.3 F L 04/15/17 07:00 Pulse 73 04/15/17 07:00 Resp 16 04/15/17 07:00 BP 107/48 04/15/17 07:00 Pulse Ox 98 04/15/17 07:00 Intake & Output 04/14/17 04/15/17 04/15/17 18:59 06:59 18:59 Intake Total 1077 100 Output Total 1700 1250 Balance -623 -1150 Weight 123 kg Intake: Intake, IV Titration 100 Amount Meropenem 1 gm In Sodium 100 Chloride 0.9% 100 ml @ 200 mls/hr IVPB Q12HR [facility] Rx#:[id number] Oral 1077 Output: Urine 1700 1250 Other: Voiding Method Indwelling Catheter Indwelling Catheter Indwelling Catheter # Voids 1 1 # Bowel Movements 2 - Exam Head exam was generally normal. There was no scleral icterus or corneal arcus. Mucous membranes were moist.Neck was supple and without jugular venous distension, thyromegaly, or carotid bruits. Carotids were easily palpable bilaterally. There was no adenopathy. Lung sounds are diminished bilaterally along with some bibasilar crackles. No wheezes. No rhonchi. Heart sounds are irregular, normal S1-S2, there is a prosthesis is a ejection murmur grade 3/6 heard throughout the precordium.Abdominal exam revealed normal bowel sounds. The abdomen was soft, non-tender, and without masses, organomegaly, or appreciable enlargement of the abdominal aorta. The patient has a ventral hernia.Examination of the extremities revealed increase in edema in the left lower extremity and the patient has a below-knee amputation on the right. Neurologically the patient is awake and alert. No focal neurological deficit at this point. - Labs CBC & Chem 7: 04/15/17 07:19 04/15/17 07:19 Labs: Abnormal Lab Results - Last 24 Hours (Table) 04/14/17 04/14/17 04/15/17 Range/Units 16:39 20:48 07:19 RBC 3.42 L (3.80-5.40) m/uL Hgb 10.2 L (11.4-16.0) gm/dL Hct 32.9 L (34.0-46.0) % RDW 16.1 H (11.5-15.5) % Chloride (98-107) mmol/L Carbon Dioxide (22-30) mmol/L BUN (7-17) mg/dL Glucose (74-99) mg/dL POC Glucose (mg/dL) 123 H 147 H (75-99) mg/dL AST (14-36) U/L Alkaline Phosphatase (38-126) U/L Albumin (3.5-5.0) g/dL 04/15/17 04/15/17 04/15/17 Range/Units 07:19 07:56 12:14 RBC (3.80-5.40) m/uL Hgb (11.4-16.0) gm/dL Hct (34.0-46.0) % RDW (11.5-15.5) % Chloride 92 L (98-107) mmol/L Carbon Dioxide 40 H* (22-30) mmol/L BUN 36 H (7-17) mg/dL Glucose 119 H (74-99) mg/dL POC Glucose (mg/dL) 119 H 193 H (75-99) mg/dL AST 45 H (14-36) U/L Alkaline Phosphatase 358 H (38-126) U/L Albumin 2.7 L (3.5-5.0) g/dL Assessment and Plan Plan: Assessment 1 acute CHF exacerbation. The patient has CHF with diastolic dysfunction and secondary pulmonary edema. Echocardiogram showed moderate degree of aortic valve stenosis with regurgitation and mild MR with moderate degree of concentric left ventricular hypertrophy. Currently and IV Lasix. 2 chronic atrial fibrillation maintained on a combination of Cardizem and amiodarone and Eliquis 3 chronic hypoxic respiratory failure maintained on oxygen at 4 liters and cannula. A computed tomography scan of the chest revealed the possibilities of mycoplasma pneumonia, acute interstitial pneumonitis, pulmonary edema, pulmonary hemorrhage, ARDS, pneumocystic pneumonia, bronchiolitis obliterans organizing pneumonia. 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 Martins. Her chest x-ray and labs were reviewed. Will continue to diurese the patient. She is on Lasix 80 mg IV every 12 hours. We'll continue meropenem. We'll repeat the chest x-ray in the a.m. We'll continue to follow.
--- NOTE | 2017-04-15 16:32 | P.PN ---
Subjective This is an 82-year-old female with a previous medical history significant for hypertension and hypertensive cardiovascular disease, chronic diastolic heart failure, history of morbid obesity, history of atrial fibrillation, patient was transferred from [facility] on the [place] yesterday and her the care of Dr. Steward because of increased shortness breath with increased swelling in the left lower extremity, patient also did have a history of right above-knee amputation as well as on, patient was admitted to the hospital because of acute diastolic heart failure and she was started on Lasix 60 minute gram IV push every 12 hours and monitoring her input and output and daily weight. 04/08: Today the patient is feeling a lot better she denies any chest pain she is less short of breath, she is diuresing very well through the Payton catheter, she denies any abdominal pain, nausea, vomiting, her troponin was slightly elevated secondary to demand ischemia without any evidence of acute coronary syndrome. 04/09: Patient is feeling a little better today, she is complaining of pain in the mid epigastric area, she continues to require 6 L oxygen, she is maintained on Lasix 60 mg IV push every 12 hours, we will continue to monitor the patient weight and oxygen situation and follow-up with the patient very closely. 04/10: Patient continues to complain of shortness of breath and is currently on 6 L of nasal cannula but when decreased to 4 L patient's pulse ox is still 96%. Patient denies feeling any improvement today. Nurses concern that patient has some anxiety regarding to the oxygen use. She is currently on Lasix 60 mg IV every 12 hours which will be continued. Payton catheter in place with good urine output. Weight is down 1 kg from yesterday. Repeat chest x-ray shows correlate for diffuse pneumonia versus pulmonary edema. Findings stable. 04/11: Patient continues on Lasix IV 60 every 12 hours. Weight appears to be an accurate she has gained weight from yesterday. Repeat chest x-ray has been ordered for tomorrow by Dr. Martins. Pulse ox is currently 96% on 5 L and patient states she is normally on 4 L at [facility]. Patient feels that her breathing is about the same as yesterday. Pyaton remains in place with good urine output. 04/12: Patient states that her breathing status is a little bit better from yesterday. Noted that her weight has gone up the last 2 days for which Lasix will be increased to 80 mg every 12 hours. Patient has had good urine output. Patient is having a lot of anxiety for which Xanax will be increased to 4 times daily. Oxygen is to be kept at 4 L which is her home dose. CO2 is at 39. BUN 22 and creatinine 0.88. 04/13: Weight is down 3 kg from yesterday. Sodium is 134, chloride 89, BUN 24 and creatinine 0.92. Pulse ox is 96% on 4 L nasal cannula. Patient denies any chest pain or cough. She states she is still short of breath but feels a little bit better today. She didn't get a skin tear on her right arm yesterday when she went to CAT scan. CAT scan of the chest report states consider mycoplasma pneumonia, acute interstitial pneumonitis, pulmonary edema, posterior hemorrhage, drug reaction and ARDS, pneumocystic pneumonia, bronchiolitis obliterans organizing pneumonia. Hepatosplenomegaly, cholelithiasis. Legionella antigen and mycoplasma testing ordered. Lasix remains at 80 mg every 12 hours. 04/14: Weight is down 2 kg from yesterday with good urine output. She remains on Lasix at 80 mg twice daily. SoluMedrol is a 40 mg every 8 hours. CO2 is 40. Mycoplasma came back negative. Legionella antigen is pending. Dr. Martins has changed her antibiotics to meropenem. Patient is complaining of feeling sleepy. Her shortness of breath is improved today. Anticipate discharge back to [facility] on Monday or Monday. : Patient's doing better this time, no significant complaints, improving shortness of breath and cough, no respiratory events including aspiration Legionella pending results and Mycoplasma IgG and IgM is normal currently on meropenem Dr. Martins. Fidel and and following closely liver function tests is stable, patient has cholelithiasis with hepatosplenomegaly medically, patient 's without any complaints Objective - Vital Signs Vital signs: Vital Signs Temp 97.2 F L 04/15/17 15:00 Pulse 79 04/15/17 15:00 Resp 16 04/15/17 15:00 BP 108/72 04/15/17 15:00 Pulse Ox 99 04/15/17 15:00 Intake & Output 04/14/17 04/15/17 04/15/17 18:59 06:59 18:59 Intake Total 1077 100 Output Total 1700 1250 Balance -623 -1150 Weight 123 kg Intake: Intake, IV Titration 100 Amount Meropenem 1 gm In Sodium 100 Chloride 0.9% 100 ml @ 200 mls/hr IVPB Q12HR [facility] Rx#:[id number] Oral 1077 Output: Urine 1700 1250 Other: Voiding Method Indwelling Catheter Indwelling Catheter Indwelling Catheter # Voids 1 1 # Bowel Movements 2 - Constitutional General appearance: Present: cooperative, no acute distress - EENT Eyes: Present: anicteric sclerae, EOMI, PERRLA, dentition normal, normal appearance ENT: Present: hearing grossly normal, NA/AT, normal oropharynx - Neck Neck: Present: normal ROM. Absent: lymphadenopathy, other, rigidity, stridor, thyromegaly - Respiratory Respiratory: bilateral: CTA, negative: diminished, dullness, rales - Cardiovascular Rhythm: regular Heart sounds: normal: S1, S2 Abnormal Heart Sounds: Absent: systolic murmur, diastolic murmur, rub, S3 Gallop , S4 Gallop, click, other - Gastrointestinal General gastrointestinal: Present: normal bowel sounds, soft - Integumentary Integumentary: Present: decreased turgor, normal - Musculoskeletal Musculoskeletal: Present: generalized weakness, strength equal bilaterally - Psychiatric Psychiatric: Present: A&O x's 3, appropriate affect, intact judgment & insight - Labs CBC & Chem 7: 04/15/17 07:19 04/15/17 07:19 Labs: Abnormal Lab Results - Last 24 Hours (Table) 04/14/17 04/14/17 04/15/17 Range/Units 16:39 20:48 07:19 RBC 3.42 L (3.80-5.40) m/uL Hgb 10.2 L (11.4-16.0) gm/dL Hct 32.9 L (34.0-46.0) % RDW 16.1 H (11.5-15.5) % Chloride (98-107) mmol/L Carbon Dioxide (22-30) mmol/L BUN (7-17) mg/dL Glucose (74-99) mg/dL POC Glucose (mg/dL) 123 H 147 H (75-99) mg/dL AST (14-36) U/L Alkaline Phosphatase (38-126) U/L Albumin (3.5-5.0) g/dL 04/15/17 04/15/17 04/15/17 Range/Units 07:19 07:56 12:14 RBC (3.80-5.40) m/uL Hgb (11.4-16.0) gm/dL Hct (34.0-46.0) % RDW (11.5-15.5) % Chloride 92 L (98-107) mmol/L Carbon Dioxide 40 H* (22-30) mmol/L BUN 36 H (7-17) mg/dL Glucose 119 H (74-99) mg/dL POC Glucose (mg/dL) 119 H 193 H (75-99) mg/dL AST 45 H (14-36) U/L Alkaline Phosphatase 358 H (38-126) U/L Albumin 2.7 L (3.5-5.0) g/dL Assessment and Plan Plan: 1. Acute diastolic heart failure. Continue patient on Lasix 80 mg IV push every 12 hours, monitor input and output and daily weight, monitor the patient' s electrolytes, magnesium, echocardiogram was done and that showed moderate aortic valve stenosis with aortic regurgitation and mild mitral regurgitation with a normal ejection fraction 55-60% with moderate concentric left ventricular hypertrophy. Mycoplasma and Legionella testing 2. Chronic Atrial fibrillation. Continue patient on Eliquis 5 mg orally twice every day, Cardizem 60 mg orally 3 times every day, amiodarone 200 mg orally once every day. 3. Acute hypoxemic respiratory failure secondary to bibasilar pneumonia, computed tomography scan finding looks into interstitial pneumonitis, pulmonary edema and pulmonary or posterior hemorrhage, drug reaction or ARDS or BOOP with acute diastolic heart failure we'll continue treatment as in Paragraph #1 plus antibiotics have been changed by Dr. Martins to meropenem, Solu-Medrol, sputum culture, blood culture, pulmonary consultation and cardiology consultation. 4. UTI with sepsis. Continue patient on clindamycin as well as tobramycin, check urine culture. 5. Hypertension and hypertensive cardiovascular disease. Continue patient on Cardizem 60 mg orally 3 times every day. 6. History of CVA. Stable at this point in time. 7. Hyperlipidemia. Continue pravastatin 20 mg orally once every day. 8. Hypothyroidism. Continue Synthroid 50 mitral gram orally once every day. 9. Peripheral neuropathy. Continue Lyrica 75 mg orally twice every day. 10. Post right sokzj-mjg-qxhi amputation. Stable at this time. 11. Gout. Continue allopurinol 100 mg orally once every day. 12. DVT prophylaxis. Currently on Eliquis. 13. GI prophylaxis. Continue PPI. 14. Prognosis very guarded. Discharge plan: [facility] return on Monday or Monday
[2017-04-15 17:22] LABS: Glucose,Whole Blood 126 mg/dL (75-99)
[2017-04-15] MEDS: PRAVASTATIN SODIUM 20 MG TAB PO SCH (19:57)
[2017-04-15] MEDS: MONTELUKAST 10 MG TAB PO SCH (19:58)
[2017-04-15 21:10] LABS: Glucose,Whole Blood 134 mg/dL (75-99)
[2017-04-16] MEDS: PREGABALIN 50 MG CAP PO SCH ×3 (06:02→21:48)
[2017-04-16] MEDS: DIGOXIN 125 MCG TAB PO SCH (06:02)
[2017-04-16] MEDS: LEVOTHYROXINE 50 MCG TAB PO SCH (06:02)
[2017-04-16 07:02] LABS: Glucose,Whole Blood 119 mg/dL (75-99)
[2017-04-16] MEDS: FLUTICASONE 50MCG/SPRAY NASAL 16GM EA NOSTRIL SCH ×2 (08:22→21:45)
[2017-04-16] MEDS: INSULIN LISPRO (humaLOG) 300 UNIT/3 ML VIAL SQ SCH ×4 (08:22→21:49)
[2017-04-16] MEDS: ALLOPURINOL 100 MG TAB PO SCH (08:23)
[2017-04-16] MEDS: MAGNESIUM OXIDE 400 MG TAB PO SCH ×2 (08:23→21:46)
[2017-04-16] MEDS: FUROSEMIDE 10 MG/ML 10 ML VIAL IV SCH (08:23)
[2017-04-16] MEDS: DILTIAZEM ORAL 60 MG TAB PO SCH ×3 (08:23→21:46)
[2017-04-16] MEDS: AMIODARONE 200 MG TAB PO SCH (08:23)
[2017-04-16] MEDS: PANTOPRAZOLE 40 MG TABLET PO SCH ×2 (08:23→21:46)
[2017-04-16] MEDS: methylPREDNISolone SOD SUCCI 40 MG/ML 1 ML VIAL IV SCH ×2 (08:23→16:08)
[2017-04-16] MEDS: APIXABAN 5 MG TAB PO SCH ×2 (08:24→21:45)
[2017-04-16] MEDS: ALPRAZolam 0.25 MG TAB PO PRN ×2 (08:24→21:48)
[2017-04-16] MEDS: POTASSIUM CHLORIDE ER 20 MEQ TAB.ER PO SCH ×2 (08:24→21:47)
[2017-04-16] MEDS: MEROPENEM 1 GM in SODIUM CHLORIDE 0.9% 100 ML IVPB SCH ×2 (08:24→21:47)
--- NOTE | 2017-04-16 08:38 | XR ---
EXAMINATION TYPE: XR chest 1V portable DATE OF EXAM: 04/16/2017 Comparison: 04/15/2017 Clinical History: 82-year-old female CHF Findings: The heart remains mild to moderately enlarged. Diffuse interstitial opacities with some patchy airspa ce opacity as well throughout the right lung and within the mid left lung. Opacities are less conflue nt on the right. Trace right pleural effusion suggested. Impression: Continued CHF with slight improving patchy pulmonary edema. Edema is less confluent now in the right lung. Trace right effusion.
[2017-04-16 08:43] LABS: CH 29.1; CHCM 30.3; HCT 34.9 % (34.0-46.0); HDW 2.73; HGB 10.8 gm/dL (11.4-16.0); Hypochromasia Moderate; MCH 29.9 pg (25.0-35.0); MCV 96.5 fL (80.0-100.0); Mean Platelet Volume 7.2; RBC 3.62 m/uL (3.80-5.40); RDW 15.3 % (11.5-15.5); WBC 9.7 k/uL (3.8-10.6)
[2017-04-16] MEDS: IPRATROPIUM-ALBUTEROL 3 ML NEB INHALATION SCH ×2 (08:48→19:01)
[2017-04-16 08:57] LABS: ALT 53 U/L (9-52); AST 72 U/L (14-36); Alkaline Phosphatase 382 U/L (38-126); Blood Urea Nitrogen 43 mg/dL (7-17); Calcium 8.9 mg/dL (8.4-10.2); Chloride 90 mmol/L (98-107); Glucose 143 mg/dL (74-99); Non-African American GFR(MDRD) 54 (>60 ml/min/1.73 sqM); Potassium 4.8 mmol/L (3.5-5.1); Sodium 140 mmol/L (137-145); Total Bilirubin 0.5 mg/dL (0.2-1.3); Total Protein 6.9 g/dL (6.3-8.2)
[2017-04-16 09:05] LABS: Anion Gap 8 mmol/L
[2017-04-16 09:08] LABS: Carbon Dioxide 42 mmol/L (22-30)
[2017-04-16] MEDS: NYSTATIN 100,000 UNIT/GM POWD 15 GM TOPICAL SCH ×2 (09:53→21:48)
[2017-04-16 12:28] LABS: Glucose,Whole Blood 124 mg/dL (75-99)
--- NOTE | 2017-04-16 13:23 | P.PN ---
Subjective Principal diagnosis: CHF/A. fib This is an 82-year-old female patient with a past medical history significant for history of CHF, chronic atrial fibrillation, hypertension, and dyslipidemia who was transferred from an extended care facility to the emergency room with worsening exertional dyspnea. She was diagnosed with congestive heart failure exacerbation and she was started on Lasix IV. Also upon presentation, she was in A. FIB/Flutter with RVR. She underwent an echo, showed normal LV function with evidence of moderate aortic stenoses and mild mitral stenosis. The patient continues to diurese very well on Lasix IV and she continues to maintain normal renal functions. The chest x-ray from today showed slight improvement in the CHF finding. Objective - Vital Signs Vital signs: Vital Signs Temp 97.2 F L 04/16/17 07:00 Pulse 76 04/16/17 09:01 Resp 16 04/16/17 08:00 BP 111/47 04/16/17 07:00 Pulse Ox 98 04/16/17 07:00 Intake & Output 04/15/17 04/16/17 04/16/17 18:59 06:59 18:59 Intake Total 700 225 Output Total 700 600 Balance 0 -375 Intake: Oral 700 225 Output: Urine 700 600 Uretheral (Payton) 600 Other: Voiding Method Indwelling Catheter Indwelling Catheter Indwelling Catheter # Bowel Movements 1 - Constitutional General appearance: Present: no acute distress - Respiratory Respiratory: bilateral: diminished - Cardiovascular Rhythm: irregularly irregular Heart sounds: normal: S1, S2 - Labs CBC & Chem 7: 04/16/17 08:20 04/16/17 08:20 Labs: Abnormal Lab Results - Last 24 Hours (Table) 04/15/17 04/15/17 04/16/17 Range/Units 17:20 21:05 07:00 RBC (3.80-5.40) m/uL Hgb (11.4-16.0) gm/dL Chloride (98-107) mmol/L Carbon Dioxide (22-30) mmol/L BUN (7-17) mg/dL Glucose (74-99) mg/dL POC Glucose (mg/dL) 126 H 134 H 119 H (75-99) mg/dL AST (14-36) U/L ALT (9-52) U/L Alkaline Phosphatase (38-126) U/L Albumin (3.5-5.0) g/dL 04/16/17 04/16/17 04/16/17 Range/Units 08:20 08:20 12:26 RBC 3.62 L (3.80-5.40) m/uL Hgb 10.8 L (11.4-16.0) gm/dL Chloride 90 L (98-107) mmol/L Carbon Dioxide 42 H* (22-30) mmol/L BUN 43 H (7-17) mg/dL Glucose 143 H (74-99) mg/dL POC Glucose (mg/dL) 124 H (75-99) mg/dL AST 72 H (14-36) U/L ALT 53 H (9-52) U/L Alkaline Phosphatase 382 H (38-126) U/L Albumin 2.9 L (3.5-5.0) g/dL Assessment and Plan Plan: This is a pleasant 82-year-old female patient with known CHF, atrial fibrillation, as well as multiple comorbid conditions who was transferred from an extended care facility to the hospital with congestive heart failure. The echocardiogram showed normal LV function with evidence of moderate aortic stenosis. I will keep the patient on the current above dose of Lasix IV which is 60 mg twice a day. Continue monitor the kidney function and electrolytes. Continue following up with the patient.
--- NOTE | 2017-04-16 13:25 | P.PN ---
Progress Note - Text This is an 82-year-old female patient with a past medical history significant for history of CHF, chronic atrial fibrillation, hypertension, and dyslipidemia who was transferred from an extended care facility to the emergency room with worsening exertional dyspnea. She was diagnosed with congestive heart failure exacerbation and she was started on Lasix IV. Also upon presentation, she was in A. FIB/Flutter with RVR. On follow-up with the patient on 04/15/2017, she stated that the shortness of breath is better. She continues to have left leg edema. We recommended continue the current medical treatment was Lasix IV. Continue following up with the renal function.
--- NOTE | 2017-04-16 14:17 | P.PN ---
Subjective This is an 82-year-old female with a previous medical history significant for hypertension and hypertensive cardiovascular disease, chronic diastolic heart failure, history of morbid obesity, history of atrial fibrillation, patient was transferred from [facility] on the [place] yesterday and her the care of Dr. Steward because of increased shortness breath with increased swelling in the left lower extremity, patient also did have a history of right above-knee amputation as well as on, patient was admitted to the hospital because of acute diastolic heart failure and she was started on Lasix 60 minute gram IV push every 12 hours and monitoring her input and output and daily weight. On 04/10/2017 I'm seeing this patient in follow-up. The patient is diuresing nicely with IV Lasix. She has extensive edema in the left lower extremity. Note that she has a below-knee amputation on the right. Shortness of breath is gradually improving. The patient remains on 4-5 L of oxygen nasal cannula to maintain a saturation above 90%. Chest x-ray most consistent with CHF. Underlying pneumonia is felt to be doubtful. No change in mental status. No fever. No chills. No hemoptysis. No pleurisy. Oral intake is diminished. On 04/11/2017 I'm seeing this patient in follow-up. The patient is still on diuretics. The left lower extremity is been wrapped and there is still some residual edema in the left leg. She has an [id number]-[id number]-diec position on the right. Her net fluid balance is negative more than 4 L over the past 24 hours and overall she has diuresed more than 7-8 L. She is developing some degree of metabolic alkalosis due to diuresis. Her oxygenation is unchanged and the patient is on a 4 L of oxygen nasal cannula her pulse ox on 96%. She rests comfortably in bed. No cough or sputum production. No change in mental status. No fever or chills. No aspiration. The patient remains on Lasix 60 mg IV push every 12 hours. The patient is also on long-term anticoagulation with Eliquis. The patient is on clindamycin for any potential aspiration pneumonia. Urine cultures been negative. Blood culture been negative. The patient is seen again today 04/12/2017 in follow-up on the selective care unit. She is awake and alert in no acute distress. She does have continued high oxygen requirements of 4 L to maintain O2 saturations in the 90s. She has been afebrile. Hemodynamically stable. Her chest x-ray continues to show multifocal airspace disease slightly worse than the right upper lobe. On 04/13/2017 I'm seeing this patient in follow-up. I reviewed the CAT scan of the chest from yesterday. There is diffuse interstitial breath and pulmonary infiltrates and the exact etiology is not clear. Rule out cardiogenic versus noncardiac pulmonary edema. The patient has been diuresed aggressively with IV Lasix. She was receiving 80 mg IV Lasix every 12 hours. She remains a significant amount of negative fluid balance, I would say at least 10 L over the past several days. No prerenal azotemia. Not a threat disturbance. On examination still still adamant this in the left lower extremity. The arms are still edematous. Crackles are seen and appreciated lung bases bilaterally. She still 40s about 2 by nasal cannula and pulse ox is around 96%. Based on her ongoing pulmonary infiltration, I broaden antibiotic coverage and put the patient IV Merrem. She was also started on IV Solu-Medrol. A follow-up chest x -ray will be obtained for tomorrow. Case was discussed with the primary care. No active aspiration although this cannot be completely ruled out. On 04/14/2017, the patient is being seen in follow-up. She still diuresing aggressively and she is still in a negative fluid balance. Today's chest x-ray still showing beta pulmonary infiltrates however I would say there may be some interval improvement in the volume status. The patient is more active and interactive. She is conversing. She denies having any respiratory distress at rest. Left lower extremities improving. Note that the patient has an amputation on the right. No fever. No chills. No chest pain. She is still on oxygen at 4 L/m nasal cannula. She was started on IV Solu-Medrol. She was also started on IV Merrem. She is on long-term anticoagulation. No other significant events overnight. The patient is seen again today 04/15/2017 in follow-up on the regular medical floor. She is currently resting quite comfortably in bed. She did have some Xanax this morning. She does arouse to verbal stimuli. She denies any worsening shortness of breath, cough or congestion. Her chest x-ray shows improved aeration more so on the left. Slight improvement on the right. She remains in a negative balance. There is less peripheral edema. Maintaining good O2 saturations in the high 90s on 4 L/m per nasal cannula. On 04/18/2017 I'm seeing this patient in follow-up. She is resting comfortably in bed. As mentioned earlier the patient developed bilateral on infiltrates for which she was being diuresed aggressively and the same time she was treated with broad-spectrum antibiotics. He continued diuresed well and the neck fluid balance for yesterday was -1.7 L. The patient is on IV Lasix 80 mg every 12 hours. She is on 40s of oxygen nasal cannula. No cough or sputum production. Left lower extremity edema is gradually improving. Chest x-ray from today is still showing CHF with slight improvement in patchy pulmonary edema. Edema is less confluent on the right. She is afebrile. She is a [facility] resident. Objective - Vital Signs Vital signs: Vital Signs Temp 97.2 F L 04/16/17 07:00 Pulse 76 04/16/17 09:01 Resp 16 04/16/17 08:00 BP 111/47 04/16/17 07:00 Pulse Ox 98 04/16/17 07:00 Intake & Output 04/15/17 04/16/17 04/16/17 18:59 06:59 18:59 Intake Total 700 225 Output Total 700 600 Balance 0 -375 Intake: Oral 700 225 Output: Urine 700 600 Uretheral (Payton) 600 Other: Voiding Method Indwelling Catheter Indwelling Catheter Indwelling Catheter # Bowel Movements 1 - Exam Head exam was generally normal. There was no scleral icterus or corneal arcus. Mucous membranes were moist.Neck was supple and without jugular venous distension, thyromegaly, or carotid bruits. Carotids were easily palpable bilaterally. There was no adenopathy. Lung sounds are diminished bilaterally along with some bibasilar crackles. No wheezes. No rhonchi. Heart sounds are irregular, normal S1-S2, there is a prosthesis is a ejection murmur grade 3/6 heard throughout the precordium.Abdominal exam revealed normal bowel sounds. The abdomen was soft, non-tender, and without masses, organomegaly, or appreciable enlargement of the abdominal aorta. The patient has a ventral hernia.Examination of the extremities revealed increase in edema in the left lower extremity and the patient has a below-knee amputation on the right. Neurologically the patient is awake and alert. No focal neurological deficit at this point. - Labs CBC & Chem 7: 04/16/17 08:20 04/16/17 08:20 Labs: Abnormal Lab Results - Last 24 Hours (Table) 04/15/17 04/15/17 04/16/17 Range/Units 17:20 21:05 07:00 RBC (3.80-5.40) m/uL Hgb (11.4-16.0) gm/dL Chloride (98-107) mmol/L Carbon Dioxide (22-30) mmol/L BUN (7-17) mg/dL Glucose (74-99) mg/dL POC Glucose (mg/dL) 126 H 134 H 119 H (75-99) mg/dL AST (14-36) U/L ALT (9-52) U/L Alkaline Phosphatase (38-126) U/L Albumin (3.5-5.0) g/dL 04/16/17 04/16/17 04/16/17 Range/Units 08:20 08:20 12:26 RBC 3.62 L (3.80-5.40) m/uL Hgb 10.8 L (11.4-16.0) gm/dL Chloride 90 L (98-107) mmol/L Carbon Dioxide 42 H* (22-30) mmol/L BUN 43 H (7-17) mg/dL Glucose 143 H (74-99) mg/dL POC Glucose (mg/dL) 124 H (75-99) mg/dL AST 72 H (14-36) U/L ALT 53 H (9-52) U/L Alkaline Phosphatase 382 H (38-126) U/L Albumin 2.9 L (3.5-5.0) g/dL Assessment and Plan Plan: Assessment 1 diffuse bilateral pulmonary infiltrates. Possible fluid overload with acute CHF exacerbation. The patient has CHF with diastolic dysfunction and secondary pulmonary edema. Noncardiogenic cause of pulmonary edema need to also to be considered including acute interstitial pneumonia S, acute atypical pneumonia S , acute lung injury from aspiration, acute hypersensitivity pneumonia/ eosinophilic pneumonia. Echocardiogram showed moderate degree of aortic valve stenosis with regurgitation and mild MR with moderate degree of concentric left ventricular hypertrophy. Currently and IV Lasix. On follow-up chest x-rays, the patient is gradually improving and I think that this is essentially a manifestation of CHF/fluid overload. The patient IV Lasix. The patient remains in a negative fluid balance. She has developed some mild metabolic alkalosis however despite that her renal function has been stable and there has been no significant electrodes imbalance. Chest x-rays were reviewed and there has been improvement in the pulmonary complaints in comparison to the original chest x-ray to the patient presented with. The chest x-ray however has not completely normalized. 2 chronic atrial fibrillation maintained on a combination of Cardizem and amiodarone and Eliquis 3 chronic hypoxic respiratory failure maintained on oxygen at 4l/min cannula. 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 It x-rays improved. Switch the Lasix to oral 40 mg twice a day. We'll continue to follow. Possible discharge without antibiotics within next 24-48 hours if her condition remains stable.
[2017-04-16] MEDS: FUROSEMIDE 40 MG TAB PO SCH (16:08)
[2017-04-16 17:07] LABS: Glucose,Whole Blood 146 mg/dL (75-99)
[2017-04-16] MEDS: HYDROcodone/APAP 5-325MG 1 EACH TAB PO PRN (17:40)
--- NOTE | 2017-04-16 18:04 | P.PN ---
Subjective This is an 82-year-old female with a previous medical history significant for hypertension and hypertensive cardiovascular disease, chronic diastolic heart failure, history of morbid obesity, history of atrial fibrillation, patient was transferred from [facility] on the [place] yesterday and her the care of Dr. Steward because of increased shortness breath with increased swelling in the left lower extremity, patient also did have a history of right above-knee amputation as well as on, patient was admitted to the hospital because of acute diastolic heart failure and she was started on Lasix 60 minute gram IV push every 12 hours and monitoring her input and output and daily weight. 04/08: Today the patient is feeling a lot better she denies any chest pain she is less short of breath, she is diuresing very well through the Payton catheter, she denies any abdominal pain, nausea, vomiting, her troponin was slightly elevated secondary to demand ischemia without any evidence of acute coronary syndrome. 04/09: Patient is feeling a little better today, she is complaining of pain in the mid epigastric area, she continues to require 6 L oxygen, she is maintained on Lasix 60 mg IV push every 12 hours, we will continue to monitor the patient weight and oxygen situation and follow-up with the patient very closely. 04/10: Patient continues to complain of shortness of breath and is currently on 6 L of nasal cannula but when decreased to 4 L patient's pulse ox is still 96%. Patient denies feeling any improvement today. Nurses concern that patient has some anxiety regarding to the oxygen use. She is currently on Lasix 60 mg IV every 12 hours which will be continued. Payton catheter in place with good urine output. Weight is down 1 kg from yesterday. Repeat chest x-ray shows correlate for diffuse pneumonia versus pulmonary edema. Findings stable. 04/11: Patient continues on Lasix IV 60 every 12 hours. Weight appears to be an accurate she has gained weight from yesterday. Repeat chest x-ray has been ordered for tomorrow by Dr. Martins. Pulse ox is currently 96% on 5 L and patient states she is normally on 4 L at [facility]. Patient feels that her breathing is about the same as yesterday. Payton remains in place with good urine output. 04/12: Patient states that her breathing status is a little bit better from yesterday. Noted that her weight has gone up the last 2 days for which Lasix will be increased to 80 mg every 12 hours. Patient has had good urine output. Patient is having a lot of anxiety for which Xanax will be increased to 4 times daily. Oxygen is to be kept at 4 L which is her home dose. CO2 is at 39. BUN 22 and creatinine 0.88. 04/13: Weight is down 3 kg from yesterday. Sodium is 134, chloride 89, BUN 24 and creatinine 0.92. Pulse ox is 96% on 4 L nasal cannula. Patient denies any chest pain or cough. She states she is still short of breath but feels a little bit better today. She didn't get a skin tear on her right arm yesterday when she went to CAT scan. CAT scan of the chest report states consider mycoplasma pneumonia, acute interstitial pneumonitis, pulmonary edema, posterior hemorrhage, drug reaction and ARDS, pneumocystic pneumonia, bronchiolitis obliterans organizing pneumonia. Hepatosplenomegaly, cholelithiasis. Legionella antigen and mycoplasma testing ordered. Lasix remains at 80 mg every 12 hours. 04/14: Weight is down 2 kg from yesterday with good urine output. She remains on Lasix at 80 mg twice daily. SoluMedrol is a 40 mg every 8 hours. CO2 is 40. Mycoplasma came back negative. Legionella antigen is pending. Dr. Martins has changed her antibiotics to meropenem. Patient is complaining of feeling sleepy. Her shortness of breath is improved today. Anticipate discharge back to [facility] on Monday or Monday. : Patient's doing better this time, no significant complaints, improving shortness of breath and cough, no respiratory events including aspiration Legionella pending results and Mycoplasma IgG and IgM is normal currently on meropenem Dr. Martins. Fidel and and following closely liver function tests is stable, patient has cholelithiasis with hepatosplenomegaly medically, patient 's without any complaints 04/16: Patient's clinical better, anticipate discharge to [facility] tomorrow, patient completed diuretic treatments here, pulmonary distress are most likely secondary to CHF rather than pneumonia, patient has a 10 day antibiotic, no plans for antibiotic post discharge as per recommendation from Dr. Martins pulmonary chest x-ray shows continued CHF with improving pulmonary edema Objective - Vital Signs Vital signs: Vital Signs Temp 97.6 F 04/16/17 15:00 Pulse 74 04/16/17 15:00 Resp 16 04/16/17 15:17 BP 136/60 04/16/17 15:00 Pulse Ox 98 04/16/17 15:00 Intake & Output 04/15/17 04/16/17 04/16/17 18:59 06:59 18:59 Intake Total 700 225 Output Total 700 600 550 Balance 0 -375 -550 Intake: Oral 700 225 Output: Urine 700 600 550 Uretheral (Payton) 600 Other: Voiding Method Indwelling Catheter Indwelling Catheter Indwelling Catheter # Bowel Movements 1 1 - Constitutional General appearance: Present: cooperative, no acute distress - EENT Eyes: Present: anicteric sclerae, edentulous, dentition normal ENT: Present: NA/AT, normal oropharynx - Neck Neck: Present: normal ROM. Absent: lymphadenopathy, other, rigidity, stridor, thyromegaly - Respiratory Respiratory: bilateral: CTA - Cardiovascular Rhythm: regular Heart sounds: normal: S1 Abnormal Heart Sounds: Absent: systolic murmur, diastolic murmur, rub, S3 Gallop , S4 Gallop, click, other - Gastrointestinal General gastrointestinal: Present: soft - Integumentary Integumentary: Present: normal - Musculoskeletal Musculoskeletal: Present: strength equal bilaterally - Psychiatric Psychiatric: Present: A&O x's 3 - Labs CBC & Chem 7: 04/16/17 08:20 04/16/17 08:20 Labs: Abnormal Lab Results - Last 24 Hours (Table) 04/15/17 04/16/17 04/16/17 Range/Units 21:05 07:00 08:20 RBC 3.62 L (3.80-5.40) m/uL Hgb 10.8 L (11.4-16.0) gm/dL Chloride (98-107) mmol/L Carbon Dioxide (22-30) mmol/L BUN (7-17) mg/dL Glucose (74-99) mg/dL POC Glucose (mg/dL) 134 H 119 H (75-99) mg/dL AST (14-36) U/L ALT (9-52) U/L Alkaline Phosphatase (38-126) U/L Albumin (3.5-5.0) g/dL 04/16/17 04/16/17 04/16/17 Range/Units 08:20 12:26 17:05 RBC (3.80-5.40) m/uL Hgb (11.4-16.0) gm/dL Chloride 90 L (98-107) mmol/L Carbon Dioxide 42 H* (22-30) mmol/L BUN 43 H (7-17) mg/dL Glucose 143 H (74-99) mg/dL POC Glucose (mg/dL) 124 H 146 H (75-99) mg/dL AST 72 H (14-36) U/L ALT 53 H (9-52) U/L Alkaline Phosphatase 382 H (38-126) U/L Albumin 2.9 L (3.5-5.0) g/dL Assessment and Plan Plan: 1. Acute diastolic heart failure. Continue patient on Lasix 80 mg IV push every 12 hours, monitor input and output and daily weight, monitor the patient' s electrolytes, magnesium, echocardiogram was done and that showed moderate aortic valve stenosis with aortic regurgitation and mild mitral regurgitation with a normal ejection fraction 55-60% with moderate concentric left ventricular hypertrophy. Mycoplasma and Legionella testing 2. Chronic Atrial fibrillation. Continue patient on Eliquis 5 mg orally twice every day, Cardizem 60 mg orally 3 times every day, amiodarone 200 mg orally once every day. 3. Acute hypoxemic respiratory failure secondary to bibasilar pneumonia, computed tomography scan finding looks into interstitial pneumonitis, pulmonary edema and pulmonary or posterior hemorrhage, drug reaction or ARDS or BOOP with acute diastolic heart failure we'll continue treatment as in Paragraph #1 plus antibiotics have been changed by Dr. Martins to meropenem, Solu-Medrol, sputum culture, blood culture, pulmonary consultation and cardiology consultation. 4. UTI with sepsis. Continue patient on clindamycin as well as tobramycin, check urine culture. 5. Hypertension and hypertensive cardiovascular disease. Continue patient on Cardizem 60 mg orally 3 times every day. 6. History of CVA. Stable at this point in time. 7. Hyperlipidemia. Continue pravastatin 20 mg orally once every day. 8. Hypothyroidism. Continue Synthroid 50 mitral gram orally once every day. 9. Peripheral neuropathy. Continue Lyrica 75 mg orally twice every day. 10. Post right [id number] amputation. Stable at this time. 11. Gout. Continue allopurinol 100 mg orally once every day. 12. DVT prophylaxis. Currently on Eliquis. 13. GI prophylaxis. Continue PPI. 14. Prognosis very guarded. Discharge plan: [facility] return on Monday or Monday
[2017-04-16 21:29] LABS: Glucose,Whole Blood 134 mg/dL (75-99)
[2017-04-16] MEDS: MONTELUKAST 10 MG TAB PO SCH (21:46)
[2017-04-16] MEDS: PRAVASTATIN SODIUM 20 MG TAB PO SCH (21:46)
[2017-04-17] MEDS: LEVOTHYROXINE 50 MCG TAB PO SCH (05:14)
[2017-04-17] MEDS: PREGABALIN 50 MG CAP PO SCH ×3 (05:15→22:10)
[2017-04-17] MEDS: DIGOXIN 125 MCG TAB PO SCH (05:15)
[2017-04-17 07:55] LABS: Glucose,Whole Blood 117 mg/dL (75-99)
[2017-04-17] MEDS: INSULIN LISPRO (humaLOG) 300 UNIT/3 ML VIAL SQ SCH ×4 (08:08→21:59)
[2017-04-17] MEDS: MAGNESIUM OXIDE 400 MG TAB PO SCH ×2 (08:09→20:27)
[2017-04-17] MEDS: NYSTATIN 100,000 UNIT/GM POWD 15 GM TOPICAL SCH ×2 (08:09→20:45)
[2017-04-17] MEDS: FLUTICASONE 50MCG/SPRAY NASAL 16GM EA NOSTRIL SCH ×2 (08:09→20:27)
[2017-04-17] MEDS: MEROPENEM 1 GM in SODIUM CHLORIDE 0.9% 100 ML IVPB SCH ×2 (08:09→20:28)
[2017-04-17] MEDS: AMIODARONE 200 MG TAB PO SCH (08:10)
[2017-04-17] MEDS: predniSONE 20 MG TAB PO SCH (08:10)
[2017-04-17] MEDS: POTASSIUM CHLORIDE ER 20 MEQ TAB.ER PO SCH ×2 (08:10→20:28)
[2017-04-17] MEDS: FUROSEMIDE 40 MG TAB PO SCH ×2 (08:10→16:30)
[2017-04-17] MEDS: APIXABAN 5 MG TAB PO SCH ×2 (08:10→20:28)
[2017-04-17] MEDS: PANTOPRAZOLE 40 MG TABLET PO SCH ×2 (08:10→20:28)
[2017-04-17] MEDS: ALLOPURINOL 100 MG TAB PO SCH (08:10)
[2017-04-17] MEDS: DILTIAZEM ORAL 60 MG TAB PO SCH ×3 (08:10→20:28)
[2017-04-17] MEDS: ALPRAZolam 0.25 MG TAB PO PRN (08:11)
[2017-04-17 08:36] LABS: CHCM 30.9; HCT 35.6 % (34.0-46.0); HDW 2.67; HGB 10.8 gm/dL (11.4-16.0); Hypochromasia Moderate; MCH 29.6 pg (25.0-35.0); MCHC 30.3 g/dL (31.0-37.0); MCV 97.6 fL (80.0-100.0); Mean Platelet Volume 7.5; RBC 3.64 m/uL (3.80-5.40); RDW 15.9 % (11.5-15.5); WBC 9.9 k/uL (3.8-10.6)
[2017-04-17 08:53] LABS: ALT 65 U/L (9-52); AST 86 U/L (14-36); Alkaline Phosphatase 348 U/L (38-126); Blood Urea Nitrogen 51 mg/dL (7-17); Calcium 8.8 mg/dL (8.4-10.2); Chloride 92 mmol/L (98-107); Glucose 130 mg/dL (74-99); Non-African American GFR(MDRD) 57 (>60 ml/min/1.73 sqM); Potassium 5.2 mmol/L (3.5-5.1); Sodium 140 mmol/L (137-145); Total Bilirubin 0.5 mg/dL (0.2-1.3); Total Protein 6.8 g/dL (6.3-8.2)
[2017-04-17] MEDS: IPRATROPIUM-ALBUTEROL 3 ML NEB INHALATION SCH ×2 (08:54→20:48)
[2017-04-17 08:59] LABS: Anion Gap 5 mmol/L
[2017-04-17 09:08] LABS: Carbon Dioxide 43 mmol/L (22-30)
[2017-04-17 12:49] LABS: Glucose,Whole Blood 132 mg/dL (75-99)
[2017-04-17] MEDS ORDERED: FUROSEMIDE 10 MG/ML 4 ML VIAL IV STA (13:02)
--- NOTE | 2017-04-17 13:22 | P.PN ---
Subjective This is an 82-year-old female with a previous medical history significant for hypertension and hypertensive cardiovascular disease, chronic diastolic heart failure, history of morbid obesity, history of atrial fibrillation, patient was transferred from [facility] on the [place] yesterday and her the care of Dr. Steward because of increased shortness breath with increased swelling in the left lower extremity, patient also did have a history of right above-knee amputation as well as on, patient was admitted to the hospital because of acute diastolic heart failure and she was started on Lasix 60 minute gram IV push every 12 hours and monitoring her input and output and daily weight. On 04/10/2017 I'm seeing this patient in follow-up. The patient is diuresing nicely with IV Lasix. She has extensive edema in the left lower extremity. Note that she has a below-knee amputation on the right. Shortness of breath is gradually improving. The patient remains on 4-5 L of oxygen nasal cannula to maintain a saturation above 90%. Chest x-ray most consistent with CHF. Underlying pneumonia is felt to be doubtful. No change in mental status. No fever. No chills. No hemoptysis. No pleurisy. Oral intake is diminished. On 04/11/2017 I'm seeing this patient in follow-up. The patient is still on diuretics. The left lower extremity is been wrapped and there is still some residual edema in the left leg. She has an aoeco-oiq-meby position on the right. Her net fluid balance is negative more than 4 L over the past 24 hours and overall she has diuresed more than 7-8 L. She is developing some degree of metabolic alkalosis due to diuresis. Her oxygenation is unchanged and the patient is on a 4 L of oxygen nasal cannula her pulse ox on 96%. She rests comfortably in bed. No cough or sputum production. No change in mental status. No fever or chills. No aspiration. The patient remains on Lasix 60 mg IV push every 12 hours. The patient is also on long-term anticoagulation with Eliquis. The patient is on clindamycin for any potential aspiration pneumonia. Urine cultures been negative. Blood culture been negative. The patient is seen again today 04/12/2017 in follow-up on the selective care unit. She is awake and alert in no acute distress. She does have continued high oxygen requirements of 4 L to maintain O2 saturations in the 90s. She has been afebrile. Hemodynamically stable. Her chest x-ray continues to show multifocal airspace disease slightly worse than the right upper lobe. On 04/13/2017 I'm seeing this patient in follow-up. I reviewed the CAT scan of the chest from yesterday. There is diffuse interstitial breath and pulmonary infiltrates and the exact etiology is not clear. Rule out cardiogenic versus noncardiac pulmonary edema. The patient has been diuresed aggressively with IV Lasix. She was receiving 80 mg IV Lasix every 12 hours. She remains a significant amount of negative fluid balance, I would say at least 10 L over the past several days. No prerenal azotemia. Not a threat disturbance. On examination still still adamant this in the left lower extremity. The arms are still edematous. Crackles are seen and appreciated lung bases bilaterally. She still 40s about 2 by nasal cannula and pulse ox is around 96%. Based on her ongoing pulmonary infiltration, I broaden antibiotic coverage and put the patient IV Merrem. She was also started on IV Solu-Medrol. A follow-up chest x -ray will be obtained for tomorrow. Case was discussed with the primary care. No active aspiration although this cannot be completely ruled out. On 04/14/2017, the patient is being seen in follow-up. She still diuresing aggressively and she is still in a negative fluid balance. Today's chest x-ray still showing beta pulmonary infiltrates however I would say there may be some interval improvement in the volume status. The patient is more active and interactive. She is conversing. She denies having any respiratory distress at rest. Left lower extremities improving. Note that the patient has an amputation on the right. No fever. No chills. No chest pain. She is still on oxygen at 4 L/m nasal cannula. She was started on IV Solu-Medrol. She was also started on IV Merrem. She is on long-term anticoagulation. No other significant events overnight. The patient is seen again today 04/15/2017 in follow-up on the regular medical floor. She is currently resting quite comfortably in bed. She did have some Xanax this morning. She does arouse to verbal stimuli. She denies any worsening shortness of breath, cough or congestion. Her chest x-ray shows improved aeration more so on the left. Slight improvement on the right. She remains in a negative balance. There is less peripheral edema. Maintaining good O2 saturations in the high 90s on 4 L/m per nasal cannula. On 04/18/2017 I'm seeing this patient in follow-up. She is resting comfortably in bed. As mentioned earlier the patient developed bilateral on infiltrates for which she was being diuresed aggressively and the same time she was treated with broad-spectrum antibiotics. He continued diuresed well and the neck fluid balance for yesterday was -1.7 L. The patient is on IV Lasix 80 mg every 12 hours. She is on 40s of oxygen nasal cannula. No cough or sputum production. Left lower extremity edema is gradually improving. Chest x-ray from today is still showing CHF with slight improvement in patchy pulmonary edema. Edema is less confluent on the right. She is afebrile. She is a retirement resident. The patient is seen again today 04/17/2017 in follow-up on the regular medical floor. She is awake and alert in no acute distress. She denies any worsening shortness of breath, cough or congestion. She has been switched to oral diuretics. He is maintaining good O2 saturations in the high 90s on 3 L/m per nasal cannula. She is afebrile. Hemodynamically stable. No leukocytosis. Creatinine stable at 0.94. Objective - Vital Signs Vital signs: Vital Signs Temp 97.0 F L 04/17/17 07:00 Pulse 76 04/17/17 09:05 Resp 22 04/17/17 07:00 BP 138/62 04/17/17 07:00 Pulse Ox 98 04/17/17 08:55 Intake & Output 04/16/17 04/17/17 04/17/17 18:59 06:59 18:59 Intake Total 100 Output Total 550 800 Balance -550 -700 Intake: Intake, IV Titration 100 Amount Meropenem 1 gm In Sodium 100 Chloride 0.9% 100 ml @ 200 mls/hr IVPB Q12HR [facility] Rx#:[id number] Output: Urine 550 800 Other: Voiding Method Indwelling Catheter Indwelling Catheter Indwelling Catheter # Voids 1 # Bowel Movements 1 0 - Exam Head exam was generally normal. There was no scleral icterus or corneal arcus. Mucous membranes were moist.Neck was supple and without jugular venous distension, thyromegaly, or carotid bruits. Carotids were easily palpable bilaterally. There was no adenopathy. Lung sounds are diminished bilaterally along with some bibasilar crackles. No wheezes. No rhonchi. Heart sounds are irregular, normal S1-S2, there is a prosthesis is a ejection murmur grade 3/6 heard throughout the precordium.Abdominal exam revealed normal bowel sounds. The abdomen was soft, non-tender, and without masses, organomegaly, or appreciable enlargement of the abdominal aorta. The patient has a ventral hernia.Examination of the extremities revealed increase in edema in the left lower extremity and the patient has a below-knee amputation on the right. Neurologically the patient is awake and alert. No focal neurological deficit at this point. - Labs CBC & Chem 7: 04/17/17 08:10 04/17/17 08:10 Labs: Abnormal Lab Results - Last 24 Hours (Table) 04/16/17 04/16/17 04/17/17 Range/Units 17:05 21:25 07:49 RBC (3.80-5.40) m/uL Hgb (11.4-16.0) gm/dL MCHC (31.0-37.0) g/dL RDW (11.5-15.5) % Potassium (3.5-5.1) mmol/L Chloride (98-107) mmol/L Carbon Dioxide (22-30) mmol/L BUN (7-17) mg/dL Glucose (74-99) mg/dL POC Glucose (mg/dL) 146 H 134 H 117 H (75-99) mg/dL AST (14-36) U/L ALT (9-52) U/L Alkaline Phosphatase (38-126) U/L Albumin (3.5-5.0) g/dL 04/17/17 04/17/17 04/17/17 Range/Units 08:10 08:10 12:44 RBC 3.64 L (3.80-5.40) m/uL Hgb 10.8 L (11.4-16.0) gm/dL MCHC 30.3 L (31.0-37.0) g/dL RDW 15.9 H (11.5-15.5) % Potassium 5.2 H (3.5-5.1) mmol/L Chloride 92 L (98-107) mmol/L Carbon Dioxide 43 H* (22-30) mmol/L BUN 51 H (7-17) mg/dL Glucose 130 H (74-99) mg/dL POC Glucose (mg/dL) 132 H (75-99) mg/dL AST 86 H (14-36) U/L ALT 65 H (9-52) U/L Alkaline Phosphatase 348 H (38-126) U/L Albumin 2.9 L (3.5-5.0) g/dL Assessment and Plan Plan: Assessment 1 acute CHF exacerbation. The patient has CHF with diastolic dysfunction and secondary pulmonary edema. Echocardiogram showed moderate degree of aortic valve stenosis with regurgitation and mild MR with moderate degree of concentric left ventricular hypertrophy. 2 chronic atrial fibrillation maintained on a combination of Cardizem and amiodarone and Eliquis 3 chronic hypoxic respiratory failure maintained on oxygen at 4 liters and cannula. A computed tomography scan of the chest revealed the possibilities of mycoplasma pneumonia, acute interstitial pneumonitis, pulmonary edema, pulmonary hemorrhage, ARDS, pneumocystic pneumonia, bronchiolitis obliterans organizing pneumonia. 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 Estrella. She continues to improve and is now back to her baseline oxygen requirements. She's been converted to oral diuretics. She can most likely be transferred back to an ECF once cleared by cardiology.
--- NOTE | 2017-04-17 13:37 | P.PN ---
Subjective This is an 82-year-old female with past medical history significant for history of CHF, chronic A. fib, hypertension and dyslipidemia. She is a resident at [facility]. She is being seen today in follow-up on a regular medical floor. She is awake and alert and in no acute distress. She states her breathing is improving she denies shortness of breath, chest pain, dizziness or cough. She was switched to oral diuretics yesterday. Blood pressure 138/62 with a heart rate of 58. She is currently taking amiodarone, Cardizem and digoxin. Objective - Vital Signs Vital signs: Vital Signs Temp 97.0 F L 04/17/17 07:00 Pulse 76 04/17/17 09:05 Resp 22 04/17/17 07:00 BP 138/62 04/17/17 07:00 Pulse Ox 98 04/17/17 08:55 Intake & Output 04/16/17 04/17/17 04/17/17 18:59 06:59 18:59 Intake Total 100 Output Total 550 800 Balance -550 -700 Intake: Intake, IV Titration 100 Amount Meropenem 1 gm In Sodium 100 Chloride 0.9% 100 ml @ 200 mls/hr IVPB Q12HR [facility] Rx#:[id number] Output: Urine 550 800 Other: Voiding Method Indwelling Catheter Indwelling Catheter # Voids 1 # Bowel Movements 1 0 - Exam GENERAL: Well-appearing, well-nourished and in no acute distress. Morbidly obese. NECK: Supple without JVD or thyromegaly. LUNGS: Breath sounds with mild rales in bilateral bases. No wheezes or rhonchi. HEART: Irregular rate and rhythm with 3/6 systolic ejection murmur, no rubs or gallops. S1 and S2 heard. EXTREMITIES: Normal range of motion, moderate 3+ pitting edema left lower extremity, hx BKA right leg. No clubbing or cyanosis. Peripheral pulses intact and strong. - Labs CBC & Chem 7: 04/17/17 08:10 04/17/17 08:10 Labs: Abnormal Lab Results - Last 24 Hours (Table) 04/16/17 04/16/17 04/16/17 Range/Units 12:26 17:05 21:25 RBC (3.80-5.40) m/uL Hgb (11.4-16.0) gm/dL MCHC (31.0-37.0) g/dL RDW (11.5-15.5) % Potassium (3.5-5.1) mmol/L Chloride (98-107) mmol/L Carbon Dioxide (22-30) mmol/L BUN (7-17) mg/dL Glucose (74-99) mg/dL POC Glucose (mg/dL) 124 H 146 H 134 H (75-99) mg/dL AST (14-36) U/L ALT (9-52) U/L Alkaline Phosphatase (38-126) U/L Albumin (3.5-5.0) g/dL 04/17/17 04/17/17 04/17/17 Range/Units 07:49 08:10 08:10 RBC 3.64 L (3.80-5.40) m/uL Hgb 10.8 L (11.4-16.0) gm/dL MCHC 30.3 L (31.0-37.0) g/dL RDW 15.9 H (11.5-15.5) % Potassium 5.2 H (3.5-5.1) mmol/L Chloride 92 L (98-107) mmol/L Carbon Dioxide 43 H* (22-30) mmol/L BUN 51 H (7-17) mg/dL Glucose 130 H (74-99) mg/dL POC Glucose (mg/dL) 117 H (75-99) mg/dL AST 86 H (14-36) U/L ALT 65 H (9-52) U/L Alkaline Phosphatase 348 H (38-126) U/L Albumin 2.9 L (3.5-5.0) g/dL Assessment and Plan Plan: ASSESSMENT 1. Acute exacerbation of congestive heart failure. Diastolic dysfunction 2. Moderate aortic stenosis with regurgitation 3. Chronic atrial fibrillation on anticoagulation 4. Chronic hypoxic respiratory failure 5. Essential hypertension with hypertensive heart disease 6. Hyperlipidemia PLAN Dr. Alvarez can be discontinued. Patient is maintaining heart rate in the 50s to 60s. There is no need for concurrent therapy at this time. From cardiac standpoint the patient is stable for discharge back to her ECF. Nurse Practitioner note has been reviewed, I agree with a documented findings and plan of care. Patient was seen and examined.
[2017-04-17] MEDS: METOLAZONE 5 MG TAB PO SCH (14:43)
--- NOTE | 2017-04-17 15:22 | P.PN ---
Subjective This is an 82-year-old female with a previous medical history significant for hypertension and hypertensive cardiovascular disease, chronic diastolic heart failure, history of morbid obesity, history of atrial fibrillation, patient was transferred from [facility] on the [place] yesterday and her the care of Dr. Steward because of increased shortness breath with increased swelling in the left lower extremity, patient also did have a history of right above-knee amputation as well as on, patient was admitted to the hospital because of acute diastolic heart failure and she was started on Lasix 60 minute gram IV push every 12 hours and monitoring her input and output and daily weight. 04/08: Today the patient is feeling a lot better she denies any chest pain she is less short of breath, she is diuresing very well through the Payton catheter, she denies any abdominal pain, nausea, vomiting, her troponin was slightly elevated secondary to demand ischemia without any evidence of acute coronary syndrome. 04/09: Patient is feeling a little better today, she is complaining of pain in the mid epigastric area, she continues to require 6 L oxygen, she is maintained on Lasix 60 mg IV push every 12 hours, we will continue to monitor the patient weight and oxygen situation and follow-up with the patient very closely. 04/10: Patient continues to complain of shortness of breath and is currently on 6 L of nasal cannula but when decreased to 4 L patient's pulse ox is still 96%. Patient denies feeling any improvement today. Nurses concern that patient has some anxiety regarding to the oxygen use. She is currently on Lasix 60 mg IV every 12 hours which will be continued. Payton catheter in place with good urine output. Weight is down 1 kg from yesterday. Repeat chest x-ray shows correlate for diffuse pneumonia versus pulmonary edema. Findings stable. 04/11: Patient continues on Lasix IV 60 every 12 hours. Weight appears to be an accurate she has gained weight from yesterday. Repeat chest x-ray has been ordered for tomorrow by Dr. Martins. Pulse ox is currently 96% on 5 L and patient states she is normally on 4 L at [facility]. Patient feels that her breathing is about the same as yesterday. Payton remains in place with good urine output. 04/12: Patient states that her breathing status is a little bit better from yesterday. Noted that her weight has gone up the last 2 days for which Lasix will be increased to 80 mg every 12 hours. Patient has had good urine output. Patient is having a lot of anxiety for which Xanax will be increased to 4 times daily. Oxygen is to be kept at 4 L which is her home dose. CO2 is at 39. BUN 22 and creatinine 0.88. 04/13: Weight is down 3 kg from yesterday. Sodium is 134, chloride 89, BUN 24 and creatinine 0.92. Pulse ox is 96% on 4 L nasal cannula. Patient denies any chest pain or cough. She states she is still short of breath but feels a little bit better today. She didn't get a skin tear on her right arm yesterday when she went to CAT scan. CAT scan of the chest report states consider mycoplasma pneumonia, acute interstitial pneumonitis, pulmonary edema, posterior hemorrhage, drug reaction and ARDS, pneumocystic pneumonia, bronchiolitis obliterans organizing pneumonia. Hepatosplenomegaly, cholelithiasis. Legionella antigen and mycoplasma testing ordered. Lasix remains at 80 mg every 12 hours. 04/14: Weight is down 2 kg from yesterday with good urine output. She remains on Lasix at 80 mg twice daily. SoluMedrol is a 40 mg every 8 hours. CO2 is 40. Mycoplasma came back negative. Legionella antigen is pending. Dr. Martins has changed her antibiotics to meropenem. Patient is complaining of feeling sleepy. Her shortness of breath is improved today. Anticipate discharge back to [facility] on Monday or Monday. : Patient's doing better this time, no significant complaints, improving shortness of breath and cough, no respiratory events including aspiration Legionella pending results and Mycoplasma IgG and IgM is normal currently on meropenem Dr. Martins. Fidel and and following closely liver function tests is stable, patient has cholelithiasis with hepatosplenomegaly medically, patient 's without any complaints 04/16: Patient's clinical better, anticipate discharge to [facility] tomorrow, patient completed diuretic treatments here, pulmonary distress are most likely secondary to CHF rather than pneumonia, patient has a 10 day antibiotic, no plans for antibiotic post discharge as per recommendation from Dr. Martins pulmonary chest x-ray shows continued CHF with improving pulmonary edema 04/17: Patient's weight is up 3 kg from yesterday. Her Lasix was changed to 40 mg orally twice daily yesterday we have added in one dose of IV Lasix this morning IV push and Zaroxolyn 5 mg on Monday and Monday. Anuel wraps are to be applied to the left leg. Due to her chronically elevated alkaline phosphatase, ultrasound gallbladder ordered and consult with Dr. Woods. Patient did have cholelithiasis noted on CAT scan of the chest. Legionella antigen and mycoplasma pneumoniae IgG IgM negative. Objective - Vital Signs Vital signs: Vital Signs Temp 97.0 F L 04/17/17 07:00 Pulse 76 04/17/17 09:05 Resp 22 04/17/17 07:00 BP 138/62 04/17/17 07:00 Pulse Ox 98 04/17/17 08:55 Intake & Output 04/16/17 04/17/17 04/17/17 18:59 06:59 18:59 Intake Total 100 Output Total 550 800 Balance -550 -700 Intake: Intake, IV Titration 100 Amount Meropenem 1 gm In Sodium 100 Chloride 0.9% 100 ml @ 200 mls/hr IVPB Q12HR [facility] Rx#:[id number] Output: Urine 550 800 Other: Voiding Method Indwelling Catheter Indwelling Catheter Indwelling Catheter # Voids 1 # Bowel Movements 1 0 - Exam General appearance: Present: cooperative, no acute distress - EENT Eyes: Present: anicteric sclerae, edentulous, dentition normal ENT: Present: NA/AT, normal oropharynx - Neck Neck: Present: normal ROM. Absent: lymphadenopathy, other, rigidity, stridor, thyromegaly - Respiratory Respiratory: bilateral: CTA - Cardiovascular Rhythm: regular Heart sounds: normal: S1 Abnormal Heart Sounds: Absent: systolic murmur, diastolic murmur, rub, S3 Gallop , S4 Gallop, click, other - Gastrointestinal General gastrointestinal: Present: soft - Integumentary Integumentary: Present: normal - Musculoskeletal Musculoskeletal: Present: strength equal bilaterally - Psychiatric Psychiatric: Present: A&O x's 3 - Labs CBC & Chem 7: 04/17/17 08:10 04/17/17 08:10 Labs: Abnormal Lab Results - Last 24 Hours (Table) 04/16/17 04/16/17 04/17/17 Range/Units 17:05 21:25 07:49 RBC (3.80-5.40) m/uL Hgb (11.4-16.0) gm/dL MCHC (31.0-37.0) g/dL RDW (11.5-15.5) % Potassium (3.5-5.1) mmol/L Chloride (98-107) mmol/L Carbon Dioxide (22-30) mmol/L BUN (7-17) mg/dL Glucose (74-99) mg/dL POC Glucose (mg/dL) 146 H 134 H 117 H (75-99) mg/dL AST (14-36) U/L ALT (9-52) U/L Alkaline Phosphatase (38-126) U/L Albumin (3.5-5.0) g/dL 04/17/17 04/17/17 04/17/17 Range/Units 08:10 08:10 12:44 RBC 3.64 L (3.80-5.40) m/uL Hgb 10.8 L (11.4-16.0) gm/dL MCHC 30.3 L (31.0-37.0) g/dL RDW 15.9 H (11.5-15.5) % Potassium 5.2 H (3.5-5.1) mmol/L Chloride 92 L (98-107) mmol/L Carbon Dioxide 43 H* (22-30) mmol/L BUN 51 H (7-17) mg/dL Glucose 130 H (74-99) mg/dL POC Glucose (mg/dL) 132 H (75-99) mg/dL AST 86 H (14-36) U/L ALT 65 H (9-52) U/L Alkaline Phosphatase 348 H (38-126) U/L Albumin 2.9 L (3.5-5.0) g/dL Assessment and Plan Plan: 1. Acute diastolic heart failure. Continue patient on Lasix 40 mg po every 12 hours, monitor input and output and daily weight, monitor the patient's electrolytes, magnesium, echocardiogram was done and that showed moderate aortic valve stenosis with aortic regurgitation and mild mitral regurgitation with a normal ejection fraction 55-60% with moderate concentric left ventricular hypertrophy. Zaroxolyn 5 mg Monday and Monday added and Lasix 40 mg IV push 1. 2. Chronic Atrial fibrillation. Continue patient on Eliquis 5 mg orally twice every day, Cardizem 60 mg orally 3 times every day, amiodarone 200 mg orally once every day. 3. Acute hypoxemic respiratory failure secondary to bibasilar pneumonia, most likely aspiration pneumonia, with acute diastolic heart failure we'll continue treatment as in Paragraph #1 plus antibiotics have been changed by Dr. Martins to meropenem, Solu-Medrol, sputum culture, blood culture, pulmonary consultation and cardiology consultation. 4. UTI with sepsis. Continue meropenem. 5. Hypertension and hypertensive cardiovascular disease. Continue patient on Cardizem 60 mg orally 3 times every day. 6. History of CVA. Stable at this point in time. 7. Hyperlipidemia. Continue pravastatin 20 mg orally once every day. 8. Hypothyroidism. Continue Synthroid 50 mitral gram orally once every day. 9. Peripheral neuropathy. Continue Lyrica 75 mg orally twice every day. 10. Post right [id number] amputation. Stable at this time. 11. Gout. Continue allopurinol 100 mg orally once every day. 12. Elevated liver function tests for which ultrasound of gallbladder ordered and consult with Dr. Woods. 13. DVT prophylaxis. Currently on Eliquis. 14. GI prophylaxis. Continue PPI. Discharge plan: [facility] return on Monday Impression and plan of care have been directed as dictated by the signing physician. Amada Cantrell nurse practitioner acting as scribe for signing physician.
[2017-04-17 17:52] LABS: Glucose,Whole Blood 132 mg/dL (75-99)
[2017-04-17] MEDS: PRAVASTATIN SODIUM 20 MG TAB PO SCH (20:27)
[2017-04-17] MEDS: MONTELUKAST 10 MG TAB PO SCH (20:28)
[2017-04-17 20:52] LABS: Glucose,Whole Blood 135 mg/dL (75-99)
[2017-04-18] MEDS: LEVOTHYROXINE 50 MCG TAB PO SCH (05:28)
[2017-04-18] MEDS: PREGABALIN 50 MG CAP PO SCH ×3 (05:28→21:45)
[2017-04-18] MEDS: ALPRAZolam 0.25 MG TAB PO PRN ×3 (05:44→21:45)
[2017-04-18 07:32] LABS: Glucose,Whole Blood 93 mg/dL (75-99)
[2017-04-18] MEDS: DILTIAZEM ORAL 60 MG TAB PO SCH ×3 (08:03→21:37)
[2017-04-18] MEDS: ALLOPURINOL 100 MG TAB PO SCH (08:03)
[2017-04-18] MEDS: MAGNESIUM OXIDE 400 MG TAB PO SCH ×2 (08:03→21:37)
[2017-04-18] MEDS: INSULIN LISPRO (humaLOG) 300 UNIT/3 ML VIAL SQ SCH ×4 (08:03→21:37)
[2017-04-18] MEDS: FUROSEMIDE 40 MG TAB PO SCH ×3 (08:03→21:38)
[2017-04-18] MEDS: FLUTICASONE 50MCG/SPRAY NASAL 16GM EA NOSTRIL SCH ×2 (08:03→21:37)
[2017-04-18] MEDS: PANTOPRAZOLE 40 MG TABLET PO SCH ×2 (08:03→21:38)
[2017-04-18] MEDS: predniSONE 20 MG TAB PO SCH (08:03)
[2017-04-18] MEDS: AMIODARONE 200 MG TAB PO SCH (08:03)
[2017-04-18] MEDS: MEROPENEM 1 GM in SODIUM CHLORIDE 0.9% 100 ML IVPB SCH ×2 (08:03→21:38)
[2017-04-18] MEDS: APIXABAN 5 MG TAB PO SCH ×2 (08:03→21:37)
[2017-04-18] MEDS: POTASSIUM CHLORIDE ER 20 MEQ TAB.ER PO SCH ×2 (08:03→21:38)
[2017-04-18] MEDS: IPRATROPIUM-ALBUTEROL 3 ML NEB INHALATION SCH ×2 (08:32→20:32)
--- NOTE | 2017-04-18 08:38 | US ---
EXAMINATION TYPE: US abdomen limited DATE OF EXAM: 04/18/2017 COMPARISON: NONE CLINICAL HISTORY: cholelithiasis. US performed at patient's bedside due to limited patient mobility;e pigastric and RUQ pain especially after meals per patient history. Patient ate few tablespoons of renee lesauce early AM with medication. EXAM MEASUREMENTS: Liver Length: 13.0 cm Gallbladder Wall: 0.1 cm CBD: 0.5 cm Right Kidney: 10.3 x 6.4 x 4.7 cm Pancreas: hyperechoic and tail obscured by overlying bowel gas Liver: fatty; small amount of ascites noted inferior to liver with fluid area = 1.3 x 1.8 x 4.1cm. Gallbladder: multiple shadowing stones noted in semi erect and fully erect positions; limited mobili ty of stones was demonstrated due to patient immobility; adjacent free fluid on image #[id number] and #[id number] is noted as part of ascites. Evidence for sonographic Teixeira's sign: Yes CBD: wnl Right Kidney: wnl IMPRESSION: 1. Fatty hepatic infiltration 2. Cholelithiasis without gallbladder wall thickening or CBD dilatation.
[2017-04-18 09:43] LABS: ALT 66 U/L (9-52); AST 83 U/L (14-36); Alkaline Phosphatase 283 U/L (38-126); Blood Urea Nitrogen 56 mg/dL (7-17); Calcium 8.7 mg/dL (8.4-10.2); Chloride 91 mmol/L (98-107); Glucose 90 mg/dL (74-99); Non-African American GFR(MDRD) 56 (>60 ml/min/1.73 sqM); Potassium 4.2 mmol/L (3.5-5.1); Sodium 141 mmol/L (137-145); Total Bilirubin 0.5 mg/dL (0.2-1.3); Total Protein 6.2 g/dL (6.3-8.2)
[2017-04-18 09:50] LABS: Anion Gap 6 mmol/L
[2017-04-18 09:56] LABS: Carbon Dioxide 44 mmol/L (22-30)
--- NOTE | 2017-04-18 11:41 | P.CONS ---
History of Present Illness - Reason for Consult Consult date: 04/18/17 Elevated liver enzymes Requesting physician: Maximilian Morrell - History of Present Illness 82-year-old female with a past medical history of chronic diastolic heart failure, morbid obesity, hyperlipidemia, atrial fibrillation maintained on amiodarone/Eliquis, hypertension, right AKA. Admitted with acute diastolic heart failure chronic atrial fibrillation with acute hypoxic respiratory failure secondary to bibasilar pneumonia likely aspiration and UTI with sepsis. Consultation requested for elevated liver enzymes. Liver enzymes were elevated on admission. No comparative baseline for review. Total bilirubin 0.4-1.1. AST 40-99. ALT 41-70. Alkaline phosphatase 283-532. Hemoglobin 9.7-11.3. MCV 94-97. Platelet 162-216. INR 1.3. No history of hepatitis, no liver disorders, alcoholism. Mild midepigastric abdominal discomfort. Ultrasound abdomen liver 13 cm. CBD 0.5 Center meters. Cholelithiasis. Fatty hepatic infiltration. Small amount of ascites inferior to liver. On review of home medications patient was on amiodarone, pravachol prior to admission. IV Merrem was started 5 days after admission. Review of Systems Constitutional: Denies fever, chills, sweats, weight gain, or loss. HEENT: Negative for migraines, blurred vision or loss, earaches, drainage, tinnitus, oral mucosal lesions, dysphagia, or odynophagia. CARDIAC: Atrial fibrillation. Diastolic heart failure. Hyperlipidemia. Hypertension. Negative for chest pain, arrhythmias, or palpitation. RESPIRATORY: Negative for shortness of breath, hemoptysis, cough, or sputum production. GI: See HPI for pertinent findings. : UTI. Negative for hematuria, urgency, frequency, polyuria, or dysuria. GYNc: Denies possibility of . Negative vaginal discharge. MUSCULOSKELETAL: Negative for muscle aches, swelling, arthritis, and arthralgias. NEUROLOGIC: Negative for stroke or TIA. ENDOCRINE: Negative for thyroid problems. SKIN: Negative for rash or itching. PSYCHIATRIC: Anxiety. Depression. All systems: negative (See HPI) Past Medical History Past Medical History: Heart Failure, COPD, CVA/TIA, GERD/Reflux, Hyperlipidemia , Hypertension, Thyroid Disorder Last Myocardial Infarction Date:: 11-02-16 History of Any Multi-Drug Resistant Organisms: ESBL Year Discovered:: 01/08/17 MDRO Source:: URINE E.COLI Past Surgical History: Orthopedic Surgery Additional Past Surgical History / Comment(s): right below knee amputation Past Psychological History: Anxiety, Depression Smoking Status: Never smoker Past Alcohol Use History: None Reported Past Drug Use History: None Reported Medications and Allergies Home Medications Medication Instructions Recorded Confirmed Type ALPRAZolam [Xanax] 0.25 mg PO Q8H PRN 04/07/17 04/07/17 History Acetaminophen Tab [Tylenol Tab] 500 mg PO Q6H PRN 04/07/17 04/07/17 History Acetaminophen [Tylenol 8 Hour] 650 mg PO Q6H PRN 04/07/17 04/07/17 History Allopurinol [Zyloprim] 100 mg PO DAILY@89904/07/17 04/07/17 History Amiodarone [Cordarone] 200 mg PO DAILY@89904/07/17 04/07/17 History Apixaban [Eliquis] 5 mg PO BID@0900,209904/07/17 04/07/17 History Diltiazem HCl 60 mg PO TID@0900,1300,209904/07/17 04/07/17 History Docusate [Colace] 100 mg PO Q24H PRN 04/07/17 04/07/17 History Fluticasone Nasal [place] [Flonase 1 spray EA NOSTRIL BID@0900,209904/07/1704/07 History Nasal [place]] Fluticasone/Vilanterol [Breo 1 puff INHALATION RT-DAILY@1300 04/07/17 04/07/17 History Ellipta 100-25 Mcg Inhaler] Furosemide [Lasix] 20 mg PO DAILY@0600 04/07/17 04/07/17 History Furosemide [Lasix] 40 mg PO MOWEFR@0904/07/17 04/07/17 History HYDROcodone/APAP 5-325MG [[place] 1 tab PO Q8H PRN 04/07/17 04/07/17 History 5-325] Ipratropium-Albuterol Nebulize 3 ml INHALATION RT-BID@0900,2100 04/07/17 History [Duoneb 0.5 mg-3 mg/3 ml Soln] Levothyroxine Sodium [Synthroid] 50 mcg PO DAILY@0600 04/07/17 04/07/17 History Liquitears Solution 2 drops BOTH EYES Q4H PRN 04/07/17 04/07/17 History Magnesium Oxide [Mag-Ox] 400 mg PO BID@0900,209904/07/17 04/07/17 History Miconazole Nitrate [Lotrimin AF 1 applic TOPICAL Q12H 04/07/17 04/07/17 History Powder] Montelukast Sodium [Singulair] 10 mg PO HS@209904/07/17 04/07/17 History Omeprazole [PriLOSEC] 20 mg PO BID@0900,209904/07/17 04/07/17 History Polyethylene Glycol 3350 [Miralax] 17 gm PO Q24H PRN 04/07/17 04/07/17 History Potassium Chloride [Klor-Con 20] 40 meq PO DAILY@0900 04/07/17 04/07/17 History Pravastatin Sodium [Pravachol] 20 mg PO HS@209904/07/17 04/07/17 History Pregabalin [Lyrica] 50 mg PO TID@0600,1400,2200 04/07/17 04/07/17 History Sennosides [Senna] 8.6 mg PO DAILY@0904/07/17 04/07/17 History Umeclidinium [place] [Incruse 1 puff INHALATION RT-DAILY@89904/07/17 04/07/17 History Ellipta] Zinc/Talc/Glycerin/Distilled Water 1 applic TOPICAL DIRECTED 04/07/17 History guaiFENesin-DM 100-10MG/5ML 10 ml PO Q6H PRN 04/07/17 04/07/17 History [Robitussin DM] Allergies Allergy/AdvReac Type Severity Reaction Status Date / Time codeine Allergy Unknown Verified 04/07/17 07:06 NSAIDS (Non-Steroidal Allergy Unknown Verified 04/07/17 07:06 Anti-Inflamma Penicillins Allergy Unknown Verified 04/07/17 07:06 Quinolones Allergy Unknown Verified 04/07/17 07:06 strawberry Allergy Unknown Verified 04/07/17 07:06 Sulfa (Sulfonamide Allergy Unknown Verified 04/07/17 07:06 Antibiotics) seeds Allergy Unknown Uncoded 04/07/17 07:06 Physical Exam Vitals: Vital Signs Temp Pulse Pulse Resp BP BP BP 04/18/17 08:47 68 04/18/17 08:32 68 04/18/17 08:00 16 04/18/17 07:00 97.0 F L 75 16 109/56 04/17/17 23:00 97.6 F 82 16 116/55 04/17/17 21:02 68 04/17/17 20:49 62 04/17/17 20:25 74 129/55 04/17/17 16:00 20 04/17/17 15:00 97.3 F L 74 20 137/44 Pulse Ox 04/18/17 08:47 04/18/17 08:32 04/18/17 08:00 04/18/17 07:00 97 04/17/17 23:00 94 L 04/17/17 21:02 04/17/17 20:49 98 04/17/17 20:25 04/17/17 16:00 04/17/17 15:00 96 Intake and Output 04/17/17 04/18/17 04/18/17 22:59 06:59 14:59 Intake Total 100 40 Output Total 1675 Balance 100 -1635 Intake: Oral 100 40 Output: Urine 1675 Other: Voiding Method Indwelling Catheter Indwelling Catheter General appearance: The patient is alert, oriented, in no acute distress. HET: Head is normocephalic and atraumatic. Pupils are equal and reactive. Oropharynx is clear without lesions. Facial telangiectasias. Neck: Supple without lymphadenopathy. Trachea midline. Heart: S1 S2. Regular rate and rhythm. Lungs: No crackles or wheezes are heard. Abdomen: Soft, nontender, nondistended with bowel sounds. No peritoneal signs. No palpable organomegaly or masses. Extremities: Right AKA. Normal skin color and turgor. Payton with yellow urine. Neurological: No focal deficits. Strength and sensation are grossly intact. Results CBC & Chem 7: 04/17/17 08:10 04/18/17 08:52 Labs: Abnormal Lab Results - Last 24 Hours (Table) 04/17/17 04/17/17 04/17/17 Range/Units 12:44 17:29 20:50 Chloride (98-107) mmol/L Carbon Dioxide (22-30) mmol/L BUN (7-17) mg/dL POC Glucose (mg/dL) 132 H 132 H 135 H (75-99) mg/dL AST (14-36) U/L ALT (9-52) U/L Alkaline Phosphatase (38-126) U/L Total Protein (6.3-8.2) g/dL Albumin (3.5-5.0) g/dL 04/18/17 Range/Units 08:52 Chloride 91 L (98-107) mmol/L Carbon Dioxide 44 H* (22-30) mmol/L BUN 56 H (7-17) mg/dL POC Glucose (mg/dL) (75-99) mg/dL AST 83 H (14-36) U/L ALT 66 H (9-52) U/L Alkaline Phosphatase 283 H (38-126) U/L Total Protein 6.2 L (6.3-8.2) g/dL Albumin 2.7 L (3.5-5.0) g/dL US - abdomen: report reviewed (Dr. Becerra) Assessment and Plan (1) Elevated liver enzymes Narrative/Plan: 82-year-old female with a history of multiple medical comorbidities including hyperlipidemia hypertension morbid obesity presents with exacerbation of diastolic heart failure sepsis UTI basilar pneumonia with elevated liver enzymes and normal bilirubin. Consent reported cholelithiasis without biliary dilatation small amount of ascites around liver without focal mass in features of hepatic infiltration.Etiology of elevated liver enzymes on admission unclear at this time but possibly related to a combination of sepsis heart failure exacerbation medications superimposed on comorbidities of underlying fatty liver disease possible underlying chronic liver disease. Status: Acute Plan: 1. Full serologic workup for chronic autoimmune liver disease. Avoid hepatotoxic medications; discontinue statin. Consideration of discontinuance of amiodarone as it can precipitate elevation of liver chemistries. 2. Hepatitis screen. AFP marker. Follow-up as outpatient 7-10 days for reevaluation and review of serologic liver chemistries. Thank you for this kind referral and the opportunity to participate in the care of your patient. This consultation was discussed with Dr. Becerra. The impression and plan of care have been directed as dictated.
[2017-04-18 12:00] LABS: Glucose,Whole Blood 130 mg/dL (75-99)
--- NOTE | 2017-04-18 12:26 | XR ---
EXAMINATION TYPE: XR chest 1V DATE OF EXAM: 04/18/2017 COMPARISON: April 16, 2017 HISTORY: Shortness of breath FINDINGS: Noted is pulmonary venous congestion with scattered infiltrates. There is also cardiomegaly and small effusions. IMPRESSION: Findings compatible with congestive failure. Infiltrates of other etiology are not excluded. Clinical correlation and progress studies are recommended.
[2017-04-18] MEDS: NYSTATIN 100,000 UNIT/GM POWD 15 GM TOPICAL SCH ×2 (13:24→21:39)
[2017-04-18] MEDS: acetaZOLAMIDE 250 MG TAB PO SCH ×2 (14:16→21:37)
--- NOTE | 2017-04-18 14:21 | P.PN ---
Subjective This is an 82-year-old female with a previous medical history significant for hypertension and hypertensive cardiovascular disease, chronic diastolic heart failure, history of morbid obesity, history of atrial fibrillation, patient was transferred from [facility] on the grijalva yesterday and her the care of Dr. Steward because of increased shortness breath with increased swelling in the left lower extremity, patient also did have a history of right above-knee amputation as well as on, patient was admitted to the hospital because of acute diastolic heart failure and she was started on Lasix 60 minute gram IV push every 12 hours and monitoring her input and output and daily weight. 04/08: Today the patient is feeling a lot better she denies any chest pain she is less short of breath, she is diuresing very well through the Payton catheter, she denies any abdominal pain, nausea, vomiting, her troponin was slightly elevated secondary to demand ischemia without any evidence of acute coronary syndrome. 04/09: Patient is feeling a little better today, she is complaining of pain in the mid epigastric area, she continues to require 6 L oxygen, she is maintained on Lasix 60 mg IV push every 12 hours, we will continue to monitor the patient weight and oxygen situation and follow-up with the patient very closely. 04/10: Patient continues to complain of shortness of breath and is currently on 6 L of nasal cannula but when decreased to 4 L patient's pulse ox is still 96%. Patient denies feeling any improvement today. Nurses concern that patient has some anxiety regarding to the oxygen use. She is currently on Lasix 60 mg IV every 12 hours which will be continued. Payton catheter in place with good urine output. Weight is down 1 kg from yesterday. Repeat chest x-ray shows correlate for diffuse pneumonia versus pulmonary edema. Findings stable. 04/11: Patient continues on Lasix IV 60 every 12 hours. Weight appears to be an accurate she has gained weight from yesterday. Repeat chest x-ray has been ordered for tomorrow by Dr. Martins. Pulse ox is currently 96% on 5 L and patient states she is normally on 4 L at [facility]. Patient feels that her breathing is about the same as yesterday. Payton remains in place with good urine output. 04/12: Patient states that her breathing status is a little bit better from yesterday. Noted that her weight has gone up the last 2 days for which Lasix will be increased to 80 mg every 12 hours. Patient has had good urine output. Patient is having a lot of anxiety for which Xanax will be increased to 4 times daily. Oxygen is to be kept at 4 L which is her home dose. CO2 is at 39. BUN 22 and creatinine 0.88. 04/13: Weight is down 3 kg from yesterday. Sodium is 134, chloride 89, BUN 24 and creatinine 0.92. Pulse ox is 96% on 4 L nasal cannula. Patient denies any chest pain or cough. She states she is still short of breath but feels a little bit better today. She didn't get a skin tear on her right arm yesterday when she went to CAT scan. CAT scan of the chest report states consider mycoplasma pneumonia, acute interstitial pneumonitis, pulmonary edema, posterior hemorrhage, drug reaction and ARDS, pneumocystic pneumonia, bronchiolitis obliterans organizing pneumonia. Hepatosplenomegaly, cholelithiasis. Legionella antigen and mycoplasma testing ordered. Lasix remains at 80 mg every 12 hours. 04/14: Weight is down 2 kg from yesterday with good urine output. She remains on Lasix at 80 mg twice daily. SoluMedrol is a 40 mg every 8 hours. CO2 is 40. Mycoplasma came back negative. Legionella antigen is pending. Dr. Martins has changed her antibiotics to meropenem. Patient is complaining of feeling sleepy. Her shortness of breath is improved today. Anticipate discharge back to [facility] on Monday or Monday. : Patient's doing better this time, no significant complaints, improving shortness of breath and cough, no respiratory events including aspiration Legionella pending results and Mycoplasma IgG and IgM is normal currently on meropenem Dr. Martins. Fidel and and following closely liver function tests is stable, patient has cholelithiasis with hepatosplenomegaly medically, patient 's without any complaints 04/16: Patient's clinical better, anticipate discharge to [facility] tomorrow, patient completed diuretic treatments here, pulmonary distress are most likely secondary to CHF rather than pneumonia, patient has a 10 day antibiotic, no plans for antibiotic post discharge as per recommendation from Dr. Martins pulmonary chest x-ray shows continued CHF with improving pulmonary edema 04/17: Patient's weight is up 3 kg from yesterday. Her Lasix was changed to 40 mg orally twice daily yesterday we have added in one dose of IV Lasix this morning IV push and Zaroxolyn 5 mg on Monday and Monday. Anuel wraps are to be applied to the left leg. Due to her chronically elevated alkaline phosphatase, ultrasound gallbladder ordered and consult with Dr. Woods. Patient did have cholelithiasis noted on CAT scan of the chest. Legionella antigen and mycoplasma pneumoniae IgG IgM negative. 04/18: Patient has been seen by GI with no plan during admission but will follow- up as an outpatient. Reminded nursing staff to apply Anuel wrap and weigh daily. Repeat chest x-ray has been ordered. Patient will be given additional dose of 40 mg of IV Lasix. Objective - Vital Signs Vital signs: Vital Signs Temp 97.0 F L 04/18/17 07:00 Pulse 68 04/18/17 08:47 Resp 16 04/18/17 08:00 BP 109/56 04/18/17 07:00 Pulse Ox 97 04/18/17 07:00 Intake & Output 04/17/17 04/18/17 04/18/17 18:59 06:59 18:59 Intake Total 140 Output Total 375 1675 Balance -375 -1535 Intake: Oral 140 Output: Urine 375 1675 Other: Voiding Method Indwelling Catheter Indwelling Catheter Indwelling Catheter - Exam General appearance: Present: cooperative, no acute distress - EENT Eyes: Present: anicteric sclerae, edentulous, dentition normal ENT: Present: NA/AT, normal oropharynx - Neck Neck: Present: normal ROM. Absent: lymphadenopathy, other, rigidity, stridor, thyromegaly - Respiratory Respiratory: bilateral: CTA - Cardiovascular Rhythm: regular Heart sounds: normal: S1 Abnormal Heart Sounds: Absent: systolic murmur, diastolic murmur, rub, S3 Gallop , S4 Gallop, click, other - Gastrointestinal General gastrointestinal: Present: soft - Integumentary Integumentary: Present: normal - Musculoskeletal Musculoskeletal: Present: strength equal bilaterally - Psychiatric Psychiatric: Present: A&O x's 3 - Labs CBC & Chem 7: 04/17/17 08:10 04/18/17 08:52 Labs: Abnormal Lab Results - Last 24 Hours (Table) 04/17/17 04/17/17 04/18/17 Range/Units 17:29 20:50 08:52 Chloride 91 L (98-107) mmol/L Carbon Dioxide 44 H* (22-30) mmol/L BUN 56 H (7-17) mg/dL POC Glucose (mg/dL) 132 H 135 H (75-99) mg/dL AST 83 H (14-36) U/L ALT 66 H (9-52) U/L Alkaline Phosphatase 283 H (38-126) U/L Total Protein 6.2 L (6.3-8.2) g/dL Albumin 2.7 L (3.5-5.0) g/dL 04/18/17 Range/Units 11:51 Chloride (98-107) mmol/L Carbon Dioxide (22-30) mmol/L BUN (7-17) mg/dL POC Glucose (mg/dL) 130 H (75-99) mg/dL AST (14-36) U/L ALT (9-52) U/L Alkaline Phosphatase (38-126) U/L Total Protein (6.3-8.2) g/dL Albumin (3.5-5.0) g/dL Assessment and Plan Plan: 1. Acute diastolic heart failure. Continue patient on Lasix 40 mg po every 12 hours, monitor input and output and daily weight, monitor the patient's electrolytes, magnesium, echocardiogram was done and that showed moderate aortic valve stenosis with aortic regurgitation and mild mitral regurgitation with a normal ejection fraction 55-60% with moderate concentric left ventricular hypertrophy. Zaroxolyn 5 mg Monday and Monday added and Lasix 40 mg IV push 1. 2. Chronic Atrial fibrillation. Continue patient on Eliquis 5 mg orally twice every day, Cardizem 60 mg orally 3 times every day, amiodarone 200 mg orally once every day. 3. Acute hypoxemic respiratory failure secondary to bibasilar pneumonia, most likely aspiration pneumonia, with acute diastolic heart failure we'll continue treatment as in Paragraph #1 plus antibiotics have been changed by Dr. Martins to meropenem, Solu-Medrol, sputum culture, blood culture, pulmonary consultation and cardiology consultation. 4. UTI with sepsis. Continue meropenem. 5. Hypertension and hypertensive cardiovascular disease. Continue patient on Cardizem 60 mg orally 3 times every day. 6. History of CVA. Stable at this point in time. 7. Hyperlipidemia. Continue pravastatin 20 mg orally once every day. 8. Hypothyroidism. Continue Synthroid 50 mitral gram orally once every day. 9. Peripheral neuropathy. Continue Lyrica 75 mg orally twice every day. 10. Post right [id number] amputation. Stable at this time. 11. Gout. Continue allopurinol 100 mg orally once every day. 12. Elevated liver function tests for which ultrasound of gallbladder ordered and consult with Dr. Woods. 13. DVT prophylaxis. Currently on Eliquis. 14. GI prophylaxis. Continue PPI. Discharge plan: [facility] return on Monday Impression and plan of care have been directed as dictated by the signing physician. Amada Cantrell nurse practitioner acting as scribe for signing physician.
[2017-04-18] MEDS: HYDROcodone/APAP 5-325MG 1 EACH TAB PO PRN (14:44)
--- NOTE | 2017-04-18 14:46 | P.PN ---
Subjective This is an 82-year-old female with a previous medical history significant for hypertension and hypertensive cardiovascular disease, chronic diastolic heart failure, history of morbid obesity, history of atrial fibrillation, patient was transferred from [facility] on the [facility] yesterday and her the care of Dr. Steward because of increased shortness breath with increased swelling in the left lower extremity, patient also did have a history of right above-knee amputation as well as on, patient was admitted to the hospital because of acute diastolic heart failure and she was started on Lasix 60 minute gram IV push every 12 hours and monitoring her input and output and daily weight. On 04/10/2017 I'm seeing this patient in follow-up. The patient is diuresing nicely with IV Lasix. She has extensive edema in the left lower extremity. Note that she has a below-knee amputation on the right. Shortness of breath is gradually improving. The patient remains on 4-5 L of oxygen nasal cannula to maintain a saturation above 90%. Chest x-ray most consistent with CHF. Underlying pneumonia is felt to be doubtful. No change in mental status. No fever. No chills. No hemoptysis. No pleurisy. Oral intake is diminished. On 04/11/2017 I'm seeing this patient in follow-up. The patient is still on diuretics. The left lower extremity is been wrapped and there is still some residual edema in the left leg. She has an [id number] position on the right. Her net fluid balance is negative more than 4 L over the past 24 hours and overall she has diuresed more than 7-8 L. She is developing some degree of metabolic alkalosis due to diuresis. Her oxygenation is unchanged and the patient is on a 4 L of oxygen nasal cannula her pulse ox on 96%. She rests comfortably in bed. No cough or sputum production. No change in mental status. No fever or chills. No aspiration. The patient remains on Lasix 60 mg IV push every 12 hours. The patient is also on long-term anticoagulation with Eliquis. The patient is on clindamycin for any potential aspiration pneumonia. Urine cultures been negative. Blood culture been negative. The patient is seen again today 04/12/2017 in follow-up on the selective care unit. She is awake and alert in no acute distress. She does have continued high oxygen requirements of 4 L to maintain O2 saturations in the 90s. She has been afebrile. Hemodynamically stable. Her chest x-ray continues to show multifocal airspace disease slightly worse than the right upper lobe. On 04/13/2017 I'm seeing this patient in follow-up. I reviewed the CAT scan of the chest from yesterday. There is diffuse interstitial breath and pulmonary infiltrates and the exact etiology is not clear. Rule out cardiogenic versus noncardiac pulmonary edema. The patient has been diuresed aggressively with IV Lasix. She was receiving 80 mg IV Lasix every 12 hours. She remains a significant amount of negative fluid balance, I would say at least 10 L over the past several days. No prerenal azotemia. Not a threat disturbance. On examination still still adamant this in the left lower extremity. The arms are still edematous. Crackles are seen and appreciated lung bases bilaterally. She still 40s about 2 by nasal cannula and pulse ox is around 96%. Based on her ongoing pulmonary infiltration, I broaden antibiotic coverage and put the patient IV Merrem. She was also started on IV Solu-Medrol. A follow-up chest x -ray will be obtained for tomorrow. Case was discussed with the primary care. No active aspiration although this cannot be completely ruled out. On 04/14/2017, the patient is being seen in follow-up. She still diuresing aggressively and she is still in a negative fluid balance. Today's chest x-ray still showing beta pulmonary infiltrates however I would say there may be some interval improvement in the volume status. The patient is more active and interactive. She is conversing. She denies having any respiratory distress at rest. Left lower extremities improving. Note that the patient has an amputation on the right. No fever. No chills. No chest pain. She is still on oxygen at 4 L/m nasal cannula. She was started on IV Solu-Medrol. She was also started on IV Merrem. She is on long-term anticoagulation. No other significant events overnight. The patient is seen again today 04/15/2017 in follow-up on the regular medical floor. She is currently resting quite comfortably in bed. She did have some Xanax this morning. She does arouse to verbal stimuli. She denies any worsening shortness of breath, cough or congestion. Her chest x-ray shows improved aeration more so on the left. Slight improvement on the right. She remains in a negative balance. There is less peripheral edema. Maintaining good O2 saturations in the high 90s on 4 L/m per nasal cannula. On 04/18/2017 I'm seeing this patient in follow-up. She is resting comfortably in bed. As mentioned earlier the patient developed bilateral on infiltrates for which she was being diuresed aggressively and the same time she was treated with broad-spectrum antibiotics. He continued diuresed well and the neck fluid balance for yesterday was -1.7 L. The patient is on IV Lasix 80 mg every 12 hours. She is on 40s of oxygen nasal cannula. No cough or sputum production. Left lower extremity edema is gradually improving. Chest x-ray from today is still showing CHF with slight improvement in patchy pulmonary edema. Edema is less confluent on the right. She is afebrile. She is a retirement resident. The patient is seen again today 04/17/2017 in follow-up on the regular medical floor. She is awake and alert in no acute distress. She denies any worsening shortness of breath, cough or congestion. She has been switched to oral diuretics. She is maintaining good O2 saturations in the high 90s on 3 L/m per nasal cannula. She is afebrile. Hemodynamically stable. No leukocytosis. Creatinine stable at 0.94. She is seen again today 04/18/2017 in follow-up on the regular medical floor. She remains awake and alert in no acute distress. Her breathing however is a little more labored today as compared to yesterday. Chest x-ray reveals continued evidence of congestive heart failure. Abdominal ultrasound reveals fatty hepatic infiltration along with cholelithiasis. Blood and urine cultures revealed no growth. Her bicarb is at 44 on her electrolyte profile. AST 83, ALT 66, alk phos 283. She is currently in a negative balance. He remains afebrile. Hemodynamically stable. Maintain O2 saturations in the upper 90s on 3 L/m per nasal cannula. Objective - Vital Signs Vital signs: Vital Signs Temp 97.0 F L 04/18/17 07:00 Pulse 68 04/18/17 08:47 Resp 16 04/18/17 08:00 BP 109/56 04/18/17 07:00 Pulse Ox 97 04/18/17 07:00 Intake & Output 04/17/17 04/18/17 04/18/17 18:59 06:59 18:59 Intake Total 140 Output Total 375 1675 Balance -375 -1535 Intake: Oral 140 Output: Urine 375 2905 Other: Voiding Method Indwelling Catheter Indwelling Catheter Indwelling Catheter - Exam Head exam was generally normal. There was no scleral icterus or corneal arcus. Mucous membranes were moist.Neck was supple and without jugular venous distension, thyromegaly, or carotid bruits. Carotids were easily palpable bilaterally. There was no adenopathy. Lung sounds are diminished bilaterally along with some bibasilar crackles. No wheezes. No rhonchi. Heart sounds are irregular, normal S1-S2, there is a prosthesis is a ejection murmur grade 3/6 heard throughout the precordium.Abdominal exam revealed normal bowel sounds. The abdomen was soft, non-tender, and without masses, organomegaly, or appreciable enlargement of the abdominal aorta. The patient has a ventral hernia.Examination of the extremities revealed increase in edema in the left lower extremity and the patient has a below-knee amputation on the right. Neurologically the patient is awake and alert. No focal neurological deficit at this point. - Labs CBC & Chem 7: 04/17/17 08:10 04/18/17 08:52 Labs: Abnormal Lab Results - Last 24 Hours (Table) 04/17/17 04/17/17 04/18/17 Range/Units 17:29 20:50 08:52 Chloride 91 L (98-107) mmol/L Carbon Dioxide 44 H* (22-30) mmol/L BUN 56 H (7-17) mg/dL POC Glucose (mg/dL) 132 H 135 H (75-99) mg/dL AST 83 H (14-36) U/L ALT 66 H (9-52) U/L Alkaline Phosphatase 283 H (38-126) U/L Total Protein 6.2 L (6.3-8.2) g/dL Albumin 2.7 L (3.5-5.0) g/dL 04/18/17 Range/Units 11:51 Chloride (98-107) mmol/L Carbon Dioxide (22-30) mmol/L BUN (7-17) mg/dL POC Glucose (mg/dL) 130 H (75-99) mg/dL AST (14-36) U/L ALT (9-52) U/L Alkaline Phosphatase (38-126) U/L Total Protein (6.3-8.2) g/dL Albumin (3.5-5.0) g/dL Assessment and Plan Plan: Assessment 1 acute exacerbation of chronic diastolic congestive heart failure with secondary pulmonary edema. Echocardiogram showed moderate degree of aortic valve stenosis with regurgitation and mild MR with moderate degree of concentric left ventricular hypertrophy. Left ventricular systolic function with estimated ejection fraction 55-60%. 2 chronic atrial fibrillation maintained on a combination of Cardizem and amiodarone and Eliquis 3 chronic hypoxic respiratory failure maintained on oxygen at 4 liters and cannula. A computed tomography scan of the chest revealed the possibilities of mycoplasma pneumonia, acute interstitial pneumonitis, pulmonary edema, pulmonary hemorrhage, ARDS, pneumocystic pneumonia, bronchiolitis obliterans organizing pneumonia. 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 Estrella. Her chest x-ray and labs were reviewed. He did go ahead and increase her Lasix to 40 mg 3 times a day and added Diamox 50 mg twice a day. Continue Zaroxolyn. Continue meropenem. We will continue to follow.
[2017-04-18] MEDS ORDERED: IPRATROPIUM-ALBUTEROL 3 ML NEB INHALATION PRN (15:00)
[2017-04-18 15:03] LABS: Total Iron Binding Capacity 211 ug/dL (265-497)
[2017-04-18 15:55] LABS: % Iron Saturation 20.9 % (20-50); Iron 44 ug/dL (37-170)
[2017-04-18 16:17] LABS: Hepatitis B Surface Ag Index 0.06
[2017-04-18 16:23] LABS: Hepatitis B Core IgM Index 0.09
[2017-04-18 16:35] LABS: Hepatitis C Virus IgG Ab Negative (Negative); Hepatitis C Virus IgG Index 0.58
[2017-04-18 16:45] LABS: Glucose,Whole Blood 152 mg/dL (75-99)
[2017-04-18] MEDS: MONTELUKAST 10 MG TAB PO SCH (21:38)
[2017-04-18 21:42] LABS: Glucose,Whole Blood 128 mg/dL (75-99)
[2017-04-19] MEDS: PREGABALIN 50 MG CAP PO SCH ×3 (06:21→21:29)
[2017-04-19] MEDS: LEVOTHYROXINE 50 MCG TAB PO SCH (06:21)
[2017-04-19 07:16] LABS: Glucose,Whole Blood 102 mg/dL (75-99)
[2017-04-19] MEDS: INSULIN LISPRO (humaLOG) 300 UNIT/3 ML VIAL SQ SCH ×4 (07:37→21:30)
[2017-04-19] MEDS: IPRATROPIUM-ALBUTEROL 3 ML NEB INHALATION SCH ×2 (07:56→20:09)
[2017-04-19] MEDS: FLUTICASONE 50MCG/SPRAY NASAL 16GM EA NOSTRIL SCH ×2 (08:23→21:30)
[2017-04-19] MEDS: DILTIAZEM ORAL 60 MG TAB PO SCH ×3 (08:23→21:29)
[2017-04-19] MEDS: MEROPENEM 1 GM in SODIUM CHLORIDE 0.9% 100 ML IVPB SCH ×2 (08:23→21:43)
[2017-04-19] MEDS: MAGNESIUM OXIDE 400 MG TAB PO SCH ×2 (08:23→21:30)
[2017-04-19] MEDS: FUROSEMIDE 40 MG TAB PO SCH ×3 (08:23→21:29)
[2017-04-19] MEDS: predniSONE 20 MG TAB PO SCH (08:23)
[2017-04-19] MEDS: PANTOPRAZOLE 40 MG TABLET PO SCH ×2 (08:24→21:29)
[2017-04-19] MEDS: POTASSIUM CHLORIDE ER 20 MEQ TAB.ER PO SCH ×2 (08:24→21:29)
[2017-04-19] MEDS: METOLAZONE 5 MG TAB PO SCH (08:24)
[2017-04-19] MEDS: acetaZOLAMIDE 250 MG TAB PO SCH ×2 (08:27→21:29)
[2017-04-19] MEDS: APIXABAN 5 MG TAB PO SCH ×2 (08:27→21:29)
[2017-04-19] MEDS: AMIODARONE 200 MG TAB PO SCH (08:28)
[2017-04-19] MEDS: ALLOPURINOL 100 MG TAB PO SCH (08:28)
[2017-04-19] MEDS: NYSTATIN 100,000 UNIT/GM POWD 15 GM TOPICAL SCH ×2 (09:19→21:30)
--- NOTE | 2017-04-19 10:24 | P.PN ---
Subjective Principal diagnosis: Elevated liver enzymes Reevaluated today in regards to elevated liver enzymes. Hepatitis screen/LEANNA negative. AFP 4.6. Iron indices; iron 44. TIBC 211. Ferritin 170. Statin discontinued yesterday. Objective - Vital Signs Vital signs: Vital Signs Temp 96.8 F L 04/19/17 07:00 Pulse 76 04/19/17 08:07 Resp 22 04/19/17 07:00 BP 101/55 04/19/17 07:00 Pulse Ox 95 04/19/17 07:00 Intake & Output 04/18/17 04/19/17 04/19/17 18:59 06:59 18:59 Intake Total 550 Output Total 600 2400 Balance -600 -1850 Weight 123 kg Intake: Oral 550 Output: Urine 600 2400 Uretheral (Payton) 1200 Other: Voiding Method Indwelling Catheter Indwelling Catheter Indwelling Catheter # Bowel Movements 2 1 - Exam General appearance: The patient is alert, oriented, in no acute distress. HET: Head is normocephalic and atraumatic. Pupils are equal and reactive. Oropharynx is clear without lesions. Facial telangiectasias. Neck: Supple without lymphadenopathy. Trachea midline. Heart: S1 S2. Regular rate and rhythm. Lungs: No crackles or wheezes are heard. Abdomen: Soft, nontender, nondistended with bowel sounds. No peritoneal signs. No palpable organomegaly or masses. Extremities: Right AKA. Normal skin color and turgor. Payton with yellow urine. Neurological: No focal deficits. Strength and sensation are grossly intact. - Labs CBC & Chem 7: 04/17/17 08:10 04/18/17 08:52 Labs: Abnormal Lab Results - Last 24 Hours (Table) 04/18/17 04/18/17 04/18/17 Range/Units 08:52 11:51 16:44 POC Glucose (mg/dL) 130 H 152 H (75-99) mg/dL TIBC 211 L (265-497) ug/dL 04/18/17 04/19/17 Range/Units 21:26 07:15 POC Glucose (mg/dL) 128 H 102 H (75-99) mg/dL TIBC (265-497) ug/dL Assessment and Plan (1) Elevated liver enzymes Narrative/Plan: 82-year-old female with a history of multiple medical comorbidities including hyperlipidemia hypertension morbid obesity presents with exacerbation of diastolic heart failure sepsis UTI basilar pneumonia with elevated liver enzymes and normal bilirubin. Consent reported cholelithiasis without biliary dilatation small amount of ascites around liver without focal mass in features of hepatic infiltration.Etiology of elevated liver enzymes on admission unclear at this time but possibly related to a combination of sepsis heart failure exacerbation medications superimposed on comorbidities of underlying fatty liver disease possible underlying chronic liver disease. Status: Acute Plan: 1. Full serologic workup for chronic/autoimmune liver disease in progress. Avoid hepatotoxic medications. Consideration of discontinuance of amiodarone as it can precipitate elevation of liver chemistries. Continue to hold statin. 2. Follow-up as outpatient 7-10 days for reevaluation with review of serologic liver chemistries. Discharge per medicine. Assessment and plan of care discussed with Dr. Becerra
--- NOTE | 2017-04-19 10:28 | P.DS ---
Providers Date of admission: 04/07/17 05:56 Expected date of discharge: 04/19/17 Attending physician: Maximilian Morrell Consults: 04/07/17 06:38 Consult Physician Routine Consulting Provider: Sofia Martins Consult Reason/Comments: pneumonia Do you want consulting provider notified?: Yes Consult Physician Routine Consulting Provider: Sander William Consult Reason/Comments: atrial flutter Do you want consulting provider notified?: Yes 04/17/17 12:48 Consult Physician Routine Consulting Provider: Sergio Woods Consult Reason/Comments: cholelithiasis, elevated alk phos Do you want consulting provider notified?: Yes Primary care physician: Rosa M Steward [facility] Hospital Course: This is an 82-year-old female with a previous medical history significant for hypertension and hypertensive cardiovascular disease, chronic diastolic heart failure, history of morbid obesity, history of atrial fibrillation, patient was transferred from [facility] on the [place] yesterday and her the care of Dr. Steward because of increased shortness breath with increased swelling in the left lower extremity, patient also did have a history of right above-knee amputation as well as on, patient was admitted to the hospital because of acute diastolic heart failure and she was started on Lasix 60 minute gram IV push every 12 hours and monitoring her input and output and daily weight. 8/5: Today the patient is feeling a lot better she denies any chest pain she is less short of breath, she is diuresing very well through the Payton catheter, she denies any abdominal pain, nausea, vomiting, her troponin was slightly elevated secondary to demand ischemia without any evidence of acute coronary syndrome. 8/6: Patient is feeling a little better today, she is complaining of pain in the mid epigastric area, she continues to require 6 L oxygen, she is maintained on Lasix 60 mg IV push every 12 hours, we will continue to monitor the patient weight and oxygen situation and follow-up with the patient very closely. 8/7: Patient continues to complain of shortness of breath and is currently on 6 L of nasal cannula but when decreased to 4 L patient's pulse ox is still 96%. Patient denies feeling any improvement today. Nurses concern that patient has some anxiety regarding to the oxygen use. She is currently on Lasix 60 mg IV every 12 hours which will be continued. Payton catheter in place with good urine output. Weight is down 1 kg from yesterday. Repeat chest x-ray shows correlate for diffuse pneumonia versus pulmonary edema. Findings stable. 04/11: Patient continues on Lasix IV 60 every 12 hours. Weight appears to be an accurate she has gained weight from yesterday. Repeat chest x-ray has been ordered for tomorrow by Dr. Martins. Pulse ox is currently 96% on 5 L and patient states she is normally on 4 L at [facility]. Patient feels that her breathing is about the same as yesterday. Payton remains in place with good urine output. 04/12: Patient states that her breathing status is a little bit better from yesterday. Noted that her weight has gone up the last 2 days for which Lasix will be increased to 80 mg every 12 hours. Patient has had good urine output. Patient is having a lot of anxiety for which Xanax will be increased to 4 times daily. Oxygen is to be kept at 4 L which is her home dose. CO2 is at 39. BUN 22 and creatinine 0.88. 04/13: Weight is down 3 kg from yesterday. Sodium is 134, chloride 89, BUN 24 and creatinine 0.92. Pulse ox is 96% on 4 L nasal cannula. Patient denies any chest pain or cough. She states she is still short of breath but feels a little bit better today. She didn't get a skin tear on her right arm yesterday when she went to CAT scan. CAT scan of the chest report states consider mycoplasma pneumonia, acute interstitial pneumonitis, pulmonary edema, posterior hemorrhage, drug reaction and ARDS, pneumocystic pneumonia, bronchiolitis obliterans organizing pneumonia. Hepatosplenomegaly, cholelithiasis. Legionella antigen and mycoplasma testing ordered. Lasix remains at 80 mg every 12 hours. 04/14: Weight is down 2 kg from yesterday with good urine output. She remains on Lasix at 80 mg twice daily. SoluMedrol is a 40 mg every 8 hours. CO2 is 40. Mycoplasma came back negative. Legionella antigen is pending. Dr. Martins has changed her antibiotics to meropenem. Patient is complaining of feeling sleepy. Her shortness of breath is improved today. Anticipate discharge back to [facility] on Monday or Monday. : Patient's doing better this time, no significant complaints, improving shortness of breath and cough, no respiratory events including aspiration Legionella pending results and Mycoplasma IgG and IgM is normal currently on meropenem Dr. Martins. Fidel and and following closely liver function tests is stable, patient has cholelithiasis with hepatosplenomegaly medically, patient 's without any complaints 04/16: Patient's clinical better, anticipate discharge to [facility] tomorrow, patient completed diuretic treatments here, pulmonary distress are most likely secondary to CHF rather than pneumonia, patient has a 10 day antibiotic, no plans for antibiotic post discharge as per recommendation from Dr. Martins pulmonary chest x-ray shows continued CHF with improving pulmonary edema 04/17: Patient's weight is up 3 kg from yesterday. Her Lasix was changed to 40 mg orally twice daily yesterday we have added in one dose of IV Lasix this morning IV push and Zaroxolyn 5 mg on Monday and Monday. Anuel wraps are to be applied to the left leg. Due to her chronically elevated alkaline phosphatase, ultrasound gallbladder ordered and consult with Dr. Woods. Patient did have cholelithiasis noted on CAT scan of the chest. Legionella antigen and mycoplasma pneumoniae IgG IgM negative. 04/18: Patient has been seen by GI with no plan during admission but will follow- up as an outpatient. Reminded nursing staff to apply Anuel wrap and weigh daily. Repeat chest x-ray has been ordered. Patient will be given additional dose of 40 mg of IV Lasix. 04/19: Acute hepatitis panel and LEANNA screen negative. Liver function tests are slowly improving. He has recommended discontinuing amiodarone which will be done and patient [facility] basis. Breathing is easier today. She continues to diurese. Patient has completed course of antibiotics. She'll be discharged on tapering dose of prednisone and Lasix at 40 mg twice daily which is increased from previous dose. Also note the pravastatin was previously discontinued. Patient is being discharged back to [facility] in stable condition. Discharge Diagnoses: 1. Acute diastolic heart failure. 2. Chronic Atrial fibrillation. 3. Acute hypoxemic respiratory failure secondary to bibasilar pneumonia, most likely aspiration pneumonia, with acute diastolic heart failure 4. UTI with sepsis. 5. Hypertension and hypertensive cardiovascular disease. 6. History of CVA. Stable at this point in time. 7. Hyperlipidemia. 8. Hypothyroidism. 9. Peripheral neuropathy. 10. Post right [id number] amputation. Stable at this time. 11. Gout, unspecified. 12. Elevated liver function tests, stop statin and amiodarone, follow-up in 7- [address] Puma Becerra. Discharge plan: [facility] return Impression and plan of care have been directed as dictated by the signing physician. Amada Cantrell nurse practitioner acting as scribe for signing physician. Patient Condition at Discharge: Good Plan - Discharge Summary New Discharge Prescriptions: New acetaZOLAMIDE [Diamox] 250 mg PO BID tab INSULIN LISPRO (humaLOG) [humaLOG (formulary)] 0 unit SQ ACHS vial Metolazone [Zaroxolyn] 5 mg PO MoWeFr@0830 tab predniSONE 0 mg PO DIRECTED #30 tab ALPRAZolam [Xanax] 0.25 mg PO Q6H PRN #90 tab PRN Reason: Anxiety HYDROcodone/APAP 5-325MG [Eden 5-325] 1 each PO Q8H PRN #90 tab PRN Reason: Pain Continue Allopurinol [Zyloprim] 100 mg PO DAILY@0900 Miconazole Nitrate [Lotrimin AF Powder] 1 applic TOPICAL Q12H Liquitears Solution 2 drops BOTH EYES Q4H PRN PRN Reason: dry eyes Acetaminophen Tab [Tylenol] 500 mg PO Q6H PRN PRN Reason: Fever guaiFENesin-DM 100-10MG/5ML [Robitussin DM] 10 ml PO Q6H PRN PRN Reason: Cough Polyethylene Glycol 3350 [Miralax] 17 gm PO Q24H PRN PRN Reason: Constipation Docusate [Colace] 100 mg PO Q24H PRN PRN Reason: Constipation Acetaminophen [Tylenol 8 Hour] 650 mg PO Q6H PRN PRN Reason: pain/fever Pregabalin [Lyrica] 50 mg PO TID@0600,1400,2200 Diltiazem HCl 60 mg PO TID@0900,1300,2100 Omeprazole [PriLOSEC] 20 mg PO BID@0900,2100 Magnesium Oxide [Mag-Ox] 400 mg PO BID@0900,2100 Ipratropium-Albuterol Nebulize [Duoneb 0.5 mg-3 mg/3 ml Soln] 3 ml INHALATION RT-BID@0900,2100 Fluticasone Nasal [place] [Flonase Nasal [place]] 1 spray EA NOSTRIL BID@0900, 2099 Sennosides [Senna] 8.6 mg PO DAILY@0900 Apixaban [Eliquis] 5 mg PO BID@0900,2099 Potassium Chloride [Klor-Con 20] 40 meq PO DAILY@0900 Montelukast Sodium [Singulair] 10 mg PO HS@2100 Levothyroxine Sodium [Synthroid] 50 mcg PO DAILY@0600 Umeclidinium [place] [Incruse Ellipta] 1 puff INHALATION RT-DAILY@0900 Fluticasone/Vilanterol [Breo Ellipta 100-25 Mcg Inhaler] 1 puff INHALATION RT -DAILY@1300 Zinc/Talc/Glycerin/Distilled Water 1 applic TOPICAL DIRECTED ALPRAZolam [Xanax] 0.25 mg PO Q8H PRN #90 PRN Reason: Anxiety HYDROcodone/APAP 5-325MG [Eden 5-325] 1 tab PO Q8H PRN #90 PRN Reason: Pain Changed Furosemide [Lasix] 40 mg PO BID #0 Discontinued Pravastatin Sodium [Pravachol] 20 mg PO HS@2100 Furosemide [Lasix] 20 mg PO DAILY@0600 Digoxin [Lanoxin] 125 mcg PO DAILY@0600 Amiodarone [Cordarone] 200 mg PO DAILY@0900 Discharge Medication List Acetaminophen Tab [Tylenol] 500 mg PO Q6H PRN 04/07/17 [History] Acetaminophen [Tylenol 8 Hour] 650 mg PO Q6H PRN 04/07/17 [History] Allopurinol [Zyloprim] 100 mg PO DAILY@0900 04/07/17 [History] Apixaban [Eliquis] 5 mg PO BID@0900,209904/07/17 [History] Diltiazem HCl 60 mg PO TID@0900,1300,209904/07/17 [History] Docusate [Colace] 100 mg PO Q24H PRN 04/07/17 [History] Fluticasone Nasal [place] [Flonase Nasal [place]] 1 spray EA NOSTRIL BID@0900,209904/07/17 [History] Fluticasone/Vilanterol [Breo Ellipta 100-25 Mcg Inhaler] 1 puff INHALATION RT- DAILY@1300 04/07/17 [History] Ipratropium-Albuterol Nebulize [Duoneb 0.5 mg-3 mg/3 ml Soln] 3 ml INHALATION RT -BID@0900,209904/07/17 [History] Levothyroxine Sodium [Synthroid] 50 mcg PO DAILY@0600 04/07/17 [History] Liquitears Solution 2 drops BOTH EYES Q4H PRN 04/07/17 [History] Magnesium Oxide [Mag-Ox] 400 mg PO BID@0900,209904/07/17 [History] Miconazole Nitrate [Lotrimin AF Powder] 1 applic TOPICAL Q12H 04/07/17 [History] Montelukast Sodium [Singulair] 10 mg PO HS@209904/07/17 [History] Omeprazole [PriLOSEC] 20 mg PO BID@0900,209904/07/17 [History] Polyethylene Glycol 3350 [Miralax] 17 gm PO Q24H PRN 04/07/17 [History] Potassium Chloride [Klor-Con 20] 40 meq PO DAILY@89904/07/17 [History] Pregabalin [Lyrica] 50 mg PO TID@0600,1400,2200 04/07/17 [History] Sennosides [Senna] 8.6 mg PO DAILY@0904/07/17 [History] Umeclidinium [place] [Incruse Ellipta] 1 puff INHALATION RT-DAILY@0904/07/17 [History] Zinc/Talc/Glycerin/Distilled Water 1 applic TOPICAL DIRECTED 04/07/17 [ History] guaiFENesin-DM 100-10MG/5ML [Robitussin DM] 10 ml PO Q6H PRN 04/07/17 [History] ALPRAZolam [Xanax] 0.25 mg PO Q6H PRN #90 tab 04/19/17 [Rx] ALPRAZolam [Xanax] 0.25 mg PO Q8H PRN #90 04/19/17 [Rx] Furosemide [Lasix] 40 mg PO BID #0 04/19/17 [Rx] HYDROcodone/APAP 5-325MG [Eden 5-325] 1 each PO Q8H PRN #90 tab 04/19/17 [Rx] HYDROcodone/APAP 5-325MG [Eden 5-325] 1 tab PO Q8H PRN #90 04/19/17 [Rx] INSULIN LISPRO (humaLOG) [humaLOG (formulary)] 0 unit SQ ACHS vial 04/19/17 [Rx ] Metolazone [Zaroxolyn] 5 mg PO MoWeFr@0830 tab 04/19/17 [Rx] acetaZOLAMIDE [Diamox] 250 mg PO BID tab 04/19/17 [Rx] predniSONE 0 mg PO DIRECTED #30 tab 04/19/17 [Rx] Follow up Appointment(s)/Referral(s): [facility] [Provider Group] - 1 Week (patient is off amiodarone) oRsa M Steward MD [Primary Care Provider] - 1 Week (at [facility]) Anika Becerra MD [STAFF PHYSICIAN] - 10 Days Adams Valdez DO [Doctor of Osteopathic Medicine] - 1 Week (at [facility]) Patient Instructions/Handouts: Heart Failure (DC) Discharge Disposition: TRANSFER TO SNF/ECF
[2017-04-19 11:24] LABS: Calcium 8.6 mg/dL (8.4-10.2); Total Bilirubin 0.6 mg/dL (0.2-1.3); Total Protein 6.1 g/dL (6.3-8.2)
--- NOTE | 2017-04-19 11:32 | P.PN ---
Subjective This is an 82-year-old female with a previous medical history significant for hypertension and hypertensive cardiovascular disease, chronic diastolic heart failure, history of morbid obesity, history of atrial fibrillation, patient was transferred from [facility] on the [place] yesterday and her the care of Dr. Steward because of increased shortness breath with increased swelling in the left lower extremity, patient also did have a history of right above-knee amputation as well as on, patient was admitted to the hospital because of acute diastolic heart failure and she was started on Lasix 60 minute gram IV push every 12 hours and monitoring her input and output and daily weight. On 04/10/2017 I'm seeing this patient in follow-up. The patient is diuresing nicely with IV Lasix. She has extensive edema in the left lower extremity. Note that she has a below-knee amputation on the right. Shortness of breath is gradually improving. The patient remains on 4-5 L of oxygen nasal cannula to maintain a saturation above 90%. Chest x-ray most consistent with CHF. Underlying pneumonia is felt to be doubtful. No change in mental status. No fever. No chills. No hemoptysis. No pleurisy. Oral intake is diminished. On 04/11/2017 I'm seeing this patient in follow-up. The patient is still on diuretics. The left lower extremity is been wrapped and there is still some residual edema in the left leg. She has an [id number] position on the right. Her net fluid balance is negative more than 4 L over the past 24 hours and overall she has diuresed more than 7-8 L. She is developing some degree of metabolic alkalosis due to diuresis. Her oxygenation is unchanged and the patient is on a 4 L of oxygen nasal cannula her pulse ox on 96%. She rests comfortably in bed. No cough or sputum production. No change in mental status. No fever or chills. No aspiration. The patient remains on Lasix 60 mg IV push every 12 hours. The patient is also on long-term anticoagulation with Eliquis. The patient is on clindamycin for any potential aspiration pneumonia. Urine cultures been negative. Blood culture been negative. The patient is seen again today 04/12/2017 in follow-up on the selective care unit. She is awake and alert in no acute distress. She does have continued high oxygen requirements of 4 L to maintain O2 saturations in the 90s. She has been afebrile. Hemodynamically stable. Her chest x-ray continues to show multifocal airspace disease slightly worse than the right upper lobe. On 04/13/2017 I'm seeing this patient in follow-up. I reviewed the CAT scan of the chest from yesterday. There is diffuse interstitial breath and pulmonary infiltrates and the exact etiology is not clear. Rule out cardiogenic versus noncardiac pulmonary edema. The patient has been diuresed aggressively with IV Lasix. She was receiving 80 mg IV Lasix every 12 hours. She remains a significant amount of negative fluid balance, I would say at least 10 L over the past several days. No prerenal azotemia. Not a threat disturbance. On examination still still adamant this in the left lower extremity. The arms are still edematous. Crackles are seen and appreciated lung bases bilaterally. She still 40s about 2 by nasal cannula and pulse ox is around 96%. Based on her ongoing pulmonary infiltration, I broaden antibiotic coverage and put the patient IV Merrem. She was also started on IV Solu-Medrol. A follow-up chest x -ray will be obtained for tomorrow. Case was discussed with the primary care. No active aspiration although this cannot be completely ruled out. On 04/14/2017, the patient is being seen in follow-up. She still diuresing aggressively and she is still in a negative fluid balance. Today's chest x-ray still showing beta pulmonary infiltrates however I would say there may be some interval improvement in the volume status. The patient is more active and interactive. She is conversing. She denies having any respiratory distress at rest. Left lower extremities improving. Note that the patient has an amputation on the right. No fever. No chills. No chest pain. She is still on oxygen at 4 L/m nasal cannula. She was started on IV Solu-Medrol. She was also started on IV Merrem. She is on long-term anticoagulation. No other significant events overnight. The patient is seen again today 04/15/2017 in follow-up on the regular medical floor. She is currently resting quite comfortably in bed. She did have some Xanax this morning. She does arouse to verbal stimuli. She denies any worsening shortness of breath, cough or congestion. Her chest x-ray shows improved aeration more so on the left. Slight improvement on the right. She remains in a negative balance. There is less peripheral edema. Maintaining good O2 saturations in the high 90s on 4 L/m per nasal cannula. On 04/18/2017 I'm seeing this patient in follow-up. She is resting comfortably in bed. As mentioned earlier the patient developed bilateral on infiltrates for which she was being diuresed aggressively and the same time she was treated with broad-spectrum antibiotics. He continued diuresed well and the neck fluid balance for yesterday was -1.7 L. The patient is on IV Lasix 80 mg every 12 hours. She is on 40s of oxygen nasal cannula. No cough or sputum production. Left lower extremity edema is gradually improving. Chest x-ray from today is still showing CHF with slight improvement in patchy pulmonary edema. Edema is less confluent on the right. She is afebrile. She is a shelter resident. The patient is seen again today 04/17/2017 in follow-up on the regular medical floor. She is awake and alert in no acute distress. She denies any worsening shortness of breath, cough or congestion. She has been switched to oral diuretics. She is maintaining good O2 saturations in the high 90s on 3 L/m per nasal cannula. She is afebrile. Hemodynamically stable. No leukocytosis. Creatinine stable at 0.94. She is seen again today 04/18/2017 in follow-up on the regular medical floor. She remains awake and alert in no acute distress. Her breathing however is a little more labored today as compared to yesterday. Chest x-ray reveals continued evidence of congestive heart failure. Abdominal ultrasound reveals fatty hepatic infiltration along with cholelithiasis. Blood and urine cultures revealed no growth. Her bicarb is at 44 on her electrolyte profile. AST 83, ALT 66, alk phos 283. She is currently in a negative balance. He remains afebrile. Hemodynamically stable. Maintain O2 saturations in the upper 90s on 3 L/m per nasal cannula. The patient is seen again today 04/19/2017 in follow-up on the regular medical floor. She is resting comfortably in bed. She states she is breathing easier today as compared to yesterday. She is diuresing well. She remains in a negative balance. She continues maintaining good O2 saturations in the 90s on 3 L/m per nasal cannula. Objective - Vital Signs Vital signs: Vital Signs Temp 96.8 F L 04/19/17 07:00 Pulse 76 04/19/17 08:07 Resp 22 04/19/17 07:00 BP 101/55 04/19/17 07:00 Pulse Ox 95 04/19/17 07:00 Intake & Output 04/18/17 04/19/17 04/19/17 18:59 06:59 18:59 Intake Total 550 Output Total 600 2400 Balance -600 -1850 Weight 123 kg Intake: Oral 550 Output: Urine 600 2400 Uretheral (Payton) 1200 Other: Voiding Method Indwelling Catheter Indwelling Catheter Indwelling Catheter # Bowel Movements 2 1 - Exam Head exam was generally normal. There was no scleral icterus or corneal arcus. Mucous membranes were moist.Neck was supple and without jugular venous distension, thyromegaly, or carotid bruits. Carotids were easily palpable bilaterally. There was no adenopathy. Lung sounds are diminished bilaterally. No wheezes. No rhonchi. Heart sounds are irregular, normal S1-S2, there is a prosthesis is a ejection murmur grade 3/6 heard throughout the precordium.Abdominal exam revealed normal bowel sounds. The abdomen was soft, non-tender, and without masses, organomegaly, or appreciable enlargement of the abdominal aorta. The patient has a ventral hernia.Examination of the extremities revealed increase in edema in the left lower extremity and the patient has a below-knee amputation on the right. Neurologically the patient is awake and alert. No focal neurological deficit at this point. - Labs CBC & Chem 7: 04/17/17 08:10 04/18/17 08:52 Labs: Abnormal Lab Results - Last 24 Hours (Table) 04/18/17 04/18/17 04/18/17 Range/Units 08:52 11:51 16:44 POC Glucose (mg/dL) 130 H 152 H (75-99) mg/dL TIBC 211 L (265-497) ug/dL 04/18/17 04/19/17 Range/Units 21:26 07:15 POC Glucose (mg/dL) 128 H 102 H (75-99) mg/dL TIBC (265-497) ug/dL Assessment and Plan Plan: Assessment 1 acute exacerbation of chronic diastolic congestive heart failure with secondary pulmonary edema. Echocardiogram showed moderate degree of aortic valve stenosis with regurgitation and mild MR with moderate degree of concentric left ventricular hypertrophy. Left ventricular systolic function with estimated ejection fraction 55-60%. 2 chronic atrial fibrillation maintained on a combination of Cardizem and amiodarone and Eliquis 3 chronic hypoxic respiratory failure maintained on oxygen at 4 liters and cannula. A computed tomography scan of the chest revealed the possibilities of mycoplasma pneumonia, acute interstitial pneumonitis, pulmonary edema, pulmonary hemorrhage, ARDS, pneumocystic pneumonia, bronchiolitis obliterans organizing pneumonia. 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 Estrella. She is currently stable from the pulmonary standpoint. I believe the plan is for her to go back to [facility] care facility. She could complete her course of antibiotics and a prednisone taper. Continue diuretics.
[2017-04-19 11:39] LABS: Alpha 1 Antitrypsin 83.3 mg/dL (99.0-242.0)
[2017-04-19 12:26] LABS: Glucose,Whole Blood 133 mg/dL (75-99)
--- NOTE | 2017-04-19 14:14 | XR ---
EXAMINATION TYPE: XR chest 1V portable DATE OF EXAM: 04/19/2017 Comparison: 04/18/2017 Clinical History: 82-year-old female CHF Findings: Heart is mildly moderately enlarged similar to prior. Atherosclerotic arch calcifications. Diffuse in terstitial opacities with patchy and confluent airspace opacities throughout. There may be slight int erval improvement in aeration. Impression: Stable to minimally improved CHF with patchy pulmonary edema.
[2017-04-19] MEDS: ALPRAZolam 0.25 MG TAB PO PRN ×2 (14:42→21:36)
[2017-04-19 17:12] LABS: Glucose,Whole Blood 140 mg/dL (75-99)
[2017-04-19 20:50] LABS: Glucose,Whole Blood 197 mg/dL (75-99)
[2017-04-19] MEDS: MONTELUKAST 10 MG TAB PO SCH (21:29)
[2017-04-20] MEDS: LEVOTHYROXINE 50 MCG TAB PO SCH (06:48)
[2017-04-20] MEDS: PREGABALIN 50 MG CAP PO SCH ×3 (06:48→21:38)
[2017-04-20] MEDS: DILTIAZEM ORAL 60 MG TAB PO SCH ×3 (07:33→21:38)
[2017-04-20] MEDS: predniSONE 20 MG TAB PO SCH (07:33)
[2017-04-20] MEDS: MAGNESIUM OXIDE 400 MG TAB PO SCH ×2 (07:33→21:38)
[2017-04-20] MEDS: APIXABAN 5 MG TAB PO SCH ×2 (07:33→21:38)
[2017-04-20] MEDS: FUROSEMIDE 40 MG TAB PO SCH ×3 (07:33→21:38)
[2017-04-20] MEDS: PANTOPRAZOLE 40 MG TABLET PO SCH ×2 (07:33→21:38)
[2017-04-20] MEDS: IPRATROPIUM-ALBUTEROL 3 ML NEB INHALATION SCH ×2 (07:33→19:39)
[2017-04-20] MEDS: POTASSIUM CHLORIDE ER 20 MEQ TAB.ER PO SCH ×2 (07:33→21:38)
[2017-04-20] MEDS: ALLOPURINOL 100 MG TAB PO SCH (07:33)
[2017-04-20] MEDS: acetaZOLAMIDE 250 MG TAB PO SCH ×2 (07:33→21:38)
[2017-04-20] MEDS: MEROPENEM 1 GM in SODIUM CHLORIDE 0.9% 100 ML IVPB SCH ×2 (07:33→21:38)
[2017-04-20 07:34] LABS: Glucose,Whole Blood 94 mg/dL (75-99)
[2017-04-20] MEDS: NYSTATIN 100,000 UNIT/GM POWD 15 GM TOPICAL SCH ×2 (07:34→21:39)
[2017-04-20] MEDS: INSULIN LISPRO (humaLOG) 300 UNIT/3 ML VIAL SQ SCH ×4 (07:34→21:38)
[2017-04-20] MEDS: FLUTICASONE 50MCG/SPRAY NASAL 16GM EA NOSTRIL SCH ×2 (07:34→21:39)
[2017-04-20] MEDS: ALPRAZolam 0.25 MG TAB PO PRN ×2 (07:36→21:45)
[2017-04-20 08:38] LABS: Anisocytosis Slight; CH 29.9; CHCM 30.7; HCT 34.6 % (34.0-46.0); HDW 2.54; HGB 10.2 gm/dL (11.4-16.0); Hypochromasia Moderate; MCH 28.7 pg (25.0-35.0); MCHC 29.3 g/dL (31.0-37.0); MCV 97.9 fL (80.0-100.0); Macrocytosis Slight; Mean Platelet Volume 8.1; RBC 3.53 m/uL (3.80-5.40); RDW 16.2 % (11.5-15.5); WBC 12.7 k/uL (3.8-10.6)
--- NOTE | 2017-04-20 09:25 | P.PN ---
Subjective This is an 82-year-old female with a previous medical history significant for hypertension and hypertensive cardiovascular disease, chronic diastolic heart failure, history of morbid obesity, history of atrial fibrillation, patient was transferred from [facility] on the [place] yesterday and her the care of Dr. Steward because of increased shortness breath with increased swelling in the left lower extremity, patient also did have a history of right above-knee amputation as well as on, patient was admitted to the hospital because of acute diastolic heart failure and she was started on Lasix 60 minute gram IV push every 12 hours and monitoring her input and output and daily weight. 04/08: Today the patient is feeling a lot better she denies any chest pain she is less short of breath, she is diuresing very well through the Payton catheter, she denies any abdominal pain, nausea, vomiting, her troponin was slightly elevated secondary to demand ischemia without any evidence of acute coronary syndrome. 04/09: Patient is feeling a little better today, she is complaining of pain in the mid epigastric area, she continues to require 6 L oxygen, she is maintained on Lasix 60 mg IV push every 12 hours, we will continue to monitor the patient weight and oxygen situation and follow-up with the patient very closely. 04/10: Patient continues to complain of shortness of breath and is currently on 6 L of nasal cannula but when decreased to 4 L patient's pulse ox is still 96%. Patient denies feeling any improvement today. Nurses concern that patient has some anxiety regarding to the oxygen use. She is currently on Lasix 60 mg IV every 12 hours which will be continued. Payton catheter in place with good urine output. Weight is down 1 kg from yesterday. Repeat chest x-ray shows correlate for diffuse pneumonia versus pulmonary edema. Findings stable. 04/11: Patient continues on Lasix IV 60 every 12 hours. Weight appears to be an accurate she has gained weight from yesterday. Repeat chest x-ray has been ordered for tomorrow by Dr. Martins. Pulse ox is currently 96% on 5 L and patient states she is normally on 4 L at [facility]. Patient feels that her breathing is about the same as yesterday. Payton remains in place with good urine output. 04/12: Patient states that her breathing status is a little bit better from yesterday. Noted that her weight has gone up the last 2 days for which Lasix will be increased to 80 mg every 12 hours. Patient has had good urine output. Patient is having a lot of anxiety for which Xanax will be increased to 4 times daily. Oxygen is to be kept at 4 L which is her home dose. CO2 is at 39. BUN 22 and creatinine 0.88. 04/13: Weight is down 3 kg from yesterday. Sodium is 134, chloride 89, BUN 24 and creatinine 0.92. Pulse ox is 96% on 4 L nasal cannula. Patient denies any chest pain or cough. She states she is still short of breath but feels a little bit better today. She didn't get a skin tear on her right arm yesterday when she went to CAT scan. CAT scan of the chest report states consider mycoplasma pneumonia, acute interstitial pneumonitis, pulmonary edema, posterior hemorrhage, drug reaction and ARDS, pneumocystic pneumonia, bronchiolitis obliterans organizing pneumonia. Hepatosplenomegaly, cholelithiasis. Legionella antigen and mycoplasma testing ordered. Lasix remains at 80 mg every 12 hours. 04/14: Weight is down 2 kg from yesterday with good urine output. She remains on Lasix at 80 mg twice daily. SoluMedrol is a 40 mg every 8 hours. CO2 is 40. Mycoplasma came back negative. Legionella antigen is pending. Dr. Martins has changed her antibiotics to meropenem. Patient is complaining of feeling sleepy. Her shortness of breath is improved today. Anticipate discharge back to [facility] on Monday or Monday. : Patient's doing better this time, no significant complaints, improving shortness of breath and cough, no respiratory events including aspiration Legionella pending results and Mycoplasma IgG and IgM is normal currently on meropenem Dr. Martins. Fidel and and following closely liver function tests is stable, patient has cholelithiasis with hepatosplenomegaly medically, patient 's without any complaints 04/16: Patient's clinical better, anticipate discharge to [facility] tomorrow, patient completed diuretic treatments here, pulmonary distress are most likely secondary to CHF rather than pneumonia, patient has a 10 day antibiotic, no plans for antibiotic post discharge as per recommendation from Dr. Martins pulmonary chest x-ray shows continued CHF with improving pulmonary edema 04/17: Patient's weight is up 3 kg from yesterday. Her Lasix was changed to 40 mg orally twice daily yesterday we have added in one dose of IV Lasix this morning IV push and Zaroxolyn 5 mg on Monday and Monday. Anuel wraps are to be applied to the left leg. Due to her chronically elevated alkaline phosphatase, ultrasound gallbladder ordered and consult with Dr. Woods. Patient did have cholelithiasis noted on CAT scan of the chest. Legionella antigen and mycoplasma pneumoniae IgG IgM negative. 04/18: Patient has been seen by GI with no plan during admission but will follow- up as an outpatient. Reminded nursing staff to apply Anuel wrap and weigh daily. Repeat chest x-ray has been ordered. Patient will be given additional dose of 40 mg of IV Lasix. 04/19: Acute hepatitis panel and LEANNA screen negative. Liver function tests are slowly improving. He has recommended discontinuing amiodarone which will be done and patient will [facility] on outpatient basis. Breathing is easier today. She continues to diurese. Patient has completed course of antibiotics. She'll be discharged on tapering dose of prednisone and Lasix at 40 mg twice daily which is increased from previous dose. Also note the pravastatin was previously discontinued. Discharge to [facility] was held. Objective - Vital Signs Vital signs: Vital Signs Temp 98.2 F 04/19/17 14:59 Pulse 70 04/19/17 14:59 Resp 16 04/19/17 14:59 BP 115/50 04/19/17 14:59 Pulse Ox 96 04/19/17 14:59 Intake & Output 04/18/17 04/19/17 04/19/17 18:59 06:59 18:59 Intake Total 550 Output Total 600 2400 525 Balance -600 -1850 -525 Weight 123 kg Intake: Oral 550 Output: Urine 600 2400 525 Uretheral (Payton) 1200 Other: Voiding Method Indwelling Catheter Indwelling Catheter Indwelling Catheter # Bowel Movements 2 1 1 - Exam General appearance: Present: cooperative, no acute distress - EENT Eyes: Present: anicteric sclerae, edentulous, dentition normal ENT: Present: NA/AT, normal oropharynx - Neck Neck: Present: normal ROM. Absent: lymphadenopathy, other, rigidity, stridor, thyromegaly - Respiratory Respiratory: bilateral: CTA - Cardiovascular Rhythm: regular Heart sounds: normal: S1 Abnormal Heart Sounds: Absent: systolic murmur, diastolic murmur, rub, S3 Gallop , S4 Gallop, click, other - Gastrointestinal General gastrointestinal: Present: soft - Integumentary Integumentary: Present: normal - Musculoskeletal Musculoskeletal: Present: strength equal bilaterally - Psychiatric Psychiatric: Present: A&O x's 3 - Labs CBC & Chem 7: 04/20/17 07:48 04/19/17 10:57 Labs: Abnormal Lab Results - Last 24 Hours (Table) 04/18/17 04/18/17 04/18/17 Range/Units 08:52 08:52 16:44 Chloride (98-107) mmol/L Carbon Dioxide (22-30) mmol/L BUN (7-17) mg/dL Creatinine (0.52-1.04) mg/dL Glucose (74-99) mg/dL POC Glucose (mg/dL) 152 H (75-99) mg/dL AST (14-36) U/L ALT (9-52) U/L Alkaline Phosphatase (38-126) U/L Total Protein (6.3-8.2) g/dL Albumin (3.5-5.0) g/dL Yybaq-6-Blkdwazygls 83.3 L (99.0-242.0) mg/dL Ceruloplasmin 18.9 L (20.0-60.0) mg/dL Anti-Smooth Muscle Ab 20 H (<20) UNITS 04/18/17 04/19/17 04/19/17 Range/Units 21:26 07:15 10:57 Chloride 91 L (98-107) mmol/L Carbon Dioxide 42 H* (22-30) mmol/L BUN 56 H (7-17) mg/dL Creatinine 1.21 H (0.52-1.04) mg/dL Glucose 114 H (74-99) mg/dL POC Glucose (mg/dL) 128 H 102 H (75-99) mg/dL AST 75 H (14-36) U/L ALT 62 H (9-52) U/L Alkaline Phosphatase 249 H (38-126) U/L Total Protein 6.1 L (6.3-8.2) g/dL Albumin 2.7 L (3.5-5.0) g/dL Xwdat-1-Tupspotuyqg (99.0-242.0) mg/dL Ceruloplasmin (20.0-60.0) mg/dL Anti-Smooth Muscle Ab (<20) UNITS 04/19/ Range/Units 12:21 Chloride (98-107) mmol/L Carbon Dioxide (22-30) mmol/L BUN (7-17) mg/dL Creatinine (0.52-1.04) mg/dL Glucose (74-99) mg/dL POC Glucose (mg/dL) 133 H (75-99) mg/dL AST (14-36) U/L ALT (9-52) U/L Alkaline Phosphatase (38-126) U/L Total Protein (6.3-8.2) g/dL Albumin (3.5-5.0) g/dL Zanur-3-Reahmbiujlb (99.0-242.0) mg/dL Ceruloplasmin (20.0-60.0) mg/dL Anti-Smooth Muscle Ab (<20) UNITS Assessment and Plan Plan: 1. Acute diastolic heart failure. Continue patient on Lasix 40 mg po every 12 hours, monitor input and output and daily weight, monitor the patient's electrolytes, magnesium, echocardiogram was done and that showed moderate aortic valve stenosis with aortic regurgitation and mild mitral regurgitation with a normal ejection fraction 55-60% with moderate concentric left ventricular hypertrophy. Zaroxolyn 5 mg Monday and Monday added and Lasix 40 mg IV push 1. 2. Chronic Atrial fibrillation. Continue patient on Eliquis 5 mg orally twice every day, Cardizem 60 mg orally 3 times every day, amiodarone 200 mg orally once every day. 3. Acute hypoxemic respiratory failure secondary to bibasilar pneumonia, most likely aspiration pneumonia, with acute diastolic heart failure we'll continue treatment as in Paragraph #1 plus antibiotics have been changed by Dr. Martins to meropenem, Solu-Medrol, sputum culture, blood culture, pulmonary consultation and cardiology consultation. 4. UTI with sepsis. Continue meropenem. 5. Hypertension and hypertensive cardiovascular disease. Continue patient on Cardizem 60 mg orally 3 times every day. 6. History of CVA. Stable at this point in time. 7. Hyperlipidemia. Continue pravastatin 20 mg orally once every day. 8. Hypothyroidism. Continue Synthroid 50 mitral gram orally once every day. 9. Peripheral neuropathy. Continue Lyrica 75 mg orally twice every day. 10. Post right bpaci-xzk-frio amputation. Stable at this time. 11. Gout. Continue allopurinol 100 mg orally once every day. 12. Elevated liver function tests for which ultrasound of gallbladder ordered and consult with Dr. Woods. 13. DVT prophylaxis. Currently on Eliquis. 14. GI prophylaxis. Continue PPI. Discharge plan: [facility] return on Monday Impression and plan of care have been directed as dictated by the signing physician. Amada Cantrell nurse practitioner acting as scribe for signing physician.
[2017-04-20 10:33] LABS: Calcium 8.8 mg/dL (8.4-10.2); Potassium 3.5 mmol/L (3.5-5.1); Total Bilirubin 0.6 mg/dL (0.2-1.3); Total Protein 5.8 g/dL (6.3-8.2)
--- NOTE | 2017-04-20 11:48 | P.PN ---
Subjective This is an 82-year-old female with a previous medical history significant for hypertension and hypertensive cardiovascular disease, chronic diastolic heart failure, history of morbid obesity, history of atrial fibrillation, patient was transferred from [facility] on the [place] yesterday and her the care of Dr. Steward because of increased shortness breath with increased swelling in the left lower extremity, patient also did have a history of right above-knee amputation as well as on, patient was admitted to the hospital because of acute diastolic heart failure and she was started on Lasix 60 minute gram IV push every 12 hours and monitoring her input and output and daily weight. On 04/10/2017 I'm seeing this patient in follow-up. The patient is diuresing nicely with IV Lasix. She has extensive edema in the left lower extremity. Note that she has a below-knee amputation on the right. Shortness of breath is gradually improving. The patient remains on 4-5 L of oxygen nasal cannula to maintain a saturation above 90%. Chest x-ray most consistent with CHF. Underlying pneumonia is felt to be doubtful. No change in mental status. No fever. No chills. No hemoptysis. No pleurisy. Oral intake is diminished. On 04/11/2017 I'm seeing this patient in follow-up. The patient is still on diuretics. The left lower extremity is been wrapped and there is still some residual edema in the left leg. She has an qqdqt-eeh-jilm position on the right. Her net fluid balance is negative more than 4 L over the past 24 hours and overall she has diuresed more than 7-8 L. She is developing some degree of metabolic alkalosis due to diuresis. Her oxygenation is unchanged and the patient is on a 4 L of oxygen nasal cannula her pulse ox on 96%. She rests comfortably in bed. No cough or sputum production. No change in mental status. No fever or chills. No aspiration. The patient remains on Lasix 60 mg IV push every 12 hours. The patient is also on long-term anticoagulation with Eliquis. The patient is on clindamycin for any potential aspiration pneumonia. Urine cultures been negative. Blood culture been negative. The patient is seen again today 04/12/2017 in follow-up on the selective care unit. She is awake and alert in no acute distress. She does have continued high oxygen requirements of 4 L to maintain O2 saturations in the 90s. She has been afebrile. Hemodynamically stable. Her chest x-ray continues to show multifocal airspace disease slightly worse than the right upper lobe. On 04/13/2017 I'm seeing this patient in follow-up. I reviewed the CAT scan of the chest from yesterday. There is diffuse interstitial breath and pulmonary infiltrates and the exact etiology is not clear. Rule out cardiogenic versus noncardiac pulmonary edema. The patient has been diuresed aggressively with IV Lasix. She was receiving 80 mg IV Lasix every 12 hours. She remains a significant amount of negative fluid balance, I would say at least 10 L over the past several days. No prerenal azotemia. Not a threat disturbance. On examination still still adamant this in the left lower extremity. The arms are still edematous. Crackles are seen and appreciated lung bases bilaterally. She still 40s about 2 by nasal cannula and pulse ox is around 96%. Based on her ongoing pulmonary infiltration, I broaden antibiotic coverage and put the patient IV Merrem. She was also started on IV Solu-Medrol. A follow-up chest x -ray will be obtained for tomorrow. Case was discussed with the primary care. No active aspiration although this cannot be completely ruled out. On 04/14/2017, the patient is being seen in follow-up. She still diuresing aggressively and she is still in a negative fluid balance. Today's chest x-ray still showing beta pulmonary infiltrates however I would say there may be some interval improvement in the volume status. The patient is more active and interactive. She is conversing. She denies having any respiratory distress at rest. Left lower extremities improving. Note that the patient has an amputation on the right. No fever. No chills. No chest pain. She is still on oxygen at 4 L/m nasal cannula. She was started on IV Solu-Medrol. She was also started on IV Merrem. She is on long-term anticoagulation. No other significant events overnight. The patient is seen again today 04/15/2017 in follow-up on the regular medical floor. She is currently resting quite comfortably in bed. She did have some Xanax this morning. She does arouse to verbal stimuli. She denies any worsening shortness of breath, cough or congestion. Her chest x-ray shows improved aeration more so on the left. Slight improvement on the right. She remains in a negative balance. There is less peripheral edema. Maintaining good O2 saturations in the high 90s on 4 L/m per nasal cannula. On 04/18/2017 I'm seeing this patient in follow-up. She is resting comfortably in bed. As mentioned earlier the patient developed bilateral on infiltrates for which she was being diuresed aggressively and the same time she was treated with broad-spectrum antibiotics. He continued diuresed well and the neck fluid balance for yesterday was -1.7 L. The patient is on IV Lasix 80 mg every 12 hours. She is on 40s of oxygen nasal cannula. No cough or sputum production. Left lower extremity edema is gradually improving. Chest x-ray from today is still showing CHF with slight improvement in patchy pulmonary edema. Edema is less confluent on the right. She is afebrile. She is a assisted resident. The patient is seen again today 04/17/2017 in follow-up on the regular medical floor. She is awake and alert in no acute distress. She denies any worsening shortness of breath, cough or congestion. She has been switched to oral diuretics. She is maintaining good O2 saturations in the high 90s on 3 L/m per nasal cannula. She is afebrile. Hemodynamically stable. No leukocytosis. Creatinine stable at 0.94. She is seen again today 04/18/2017 in follow-up on the regular medical floor. She remains awake and alert in no acute distress. Her breathing however is a little more labored today as compared to yesterday. Chest x-ray reveals continued evidence of congestive heart failure. Abdominal ultrasound reveals fatty hepatic infiltration along with cholelithiasis. Blood and urine cultures revealed no growth. Her bicarb is at 44 on her electrolyte profile. AST 83, ALT 66, alk phos 283. She is currently in a negative balance. He remains afebrile. Hemodynamically stable. Maintain O2 saturations in the upper 90s on 3 L/m per nasal cannula. The patient is seen again today 04/19/2017 in follow-up on the regular medical floor. She is resting comfortably in bed. She states she is breathing easier today as compared to yesterday. She is diuresing well. She remains in a negative balance. She continues maintaining good O2 saturations in the 90s on 3 L/m per nasal cannula. The patient is seen again today 04/20/2017 in follow-up on the regular medical floor. She is resting comfortably in bed. She denies any worsening shortness of breath cough or congestion. Yesterday's chest x-ray does show improvement in the congestive heart failure. She remains on diuretics. She remains in a negative balance with 4 L output following diuretics today. She is down to 2 L/ m per nasal cannula to maintain O2 saturations in the mid 90s. She's been afebrile. Hemodynamically stable. Creatinine 1.20. Bicarb 45. She remains on Diamox. Objective - Vital Signs Vital signs: Vital Signs Temp 98.3 F 04/20/17 07:00 Pulse 68 04/20/17 07:43 Resp 18 04/20/17 07:00 BP 111/40 04/20/17 07:00 Pulse Ox 96 04/20/17 07:33 Intake & Output 04/19/17 04/20/17 04/20/17 18:59 06:59 18:59 Intake Total 750 650 Output Total 1100 4200 Balance -350 -3550 Weight 118 kg Intake: Oral 750 650 Output: Urine 1100 4200 Uretheral (Payton) 1800 Other: Voiding Method Indwelling Catheter Indwelling Catheter Indwelling Catheter # Bowel Movements 1 1 - Exam Head exam was generally normal. There was no scleral icterus or corneal arcus. Mucous membranes were moist.Neck was supple and without jugular venous distension, thyromegaly, or carotid bruits. Carotids were easily palpable bilaterally. There was no adenopathy. Lung sounds are diminished bilaterally. No wheezes. No rhonchi. Heart sounds are irregular, normal S1-S2, there is a prosthesis is a ejection murmur grade 3/6 heard throughout the precordium.Abdominal exam revealed normal bowel sounds. The abdomen was soft, non-tender, and without masses, organomegaly, or appreciable enlargement of the abdominal aorta. The patient has a ventral hernia.Examination of the extremities revealed increase in edema in the left lower extremity and the patient has a below-knee amputation on the right. Neurologically the patient is awake and alert. No focal neurological deficit at this point. - Labs CBC & Chem 7: 04/20/17 07:48 04/20/17 07:48 Labs: Abnormal Lab Results - Last 24 Hours (Table) 04/18/17 04/18/17 04/19/17 Range/Units 08:52 08:52 12:21 WBC (3.8-10.6) k/uL RBC (3.80-5.40) m/uL Hgb (11.4-16.0) gm/dL MCHC (31.0-37.0) g/dL RDW (11.5-15.5) % Chloride (98-107) mmol/L Carbon Dioxide (22-30) mmol/L BUN (7-17) mg/dL Creatinine (0.52-1.04) mg/dL POC Glucose (mg/dL) 133 H (75-99) mg/dL AST (14-36) U/L ALT (9-52) U/L Alkaline Phosphatase (38-126) U/L Total Protein (6.3-8.2) g/dL Albumin (3.5-5.0) g/dL Tywym-6-Cfobtkhpgwv 83.3 L (99.0-242.0) mg/dL Ceruloplasmin 18.9 L (20.0-60.0) mg/dL Anti-Smooth Muscle Ab 20 H (<20) UNITS 04/19/17 04/19/17 04/20/17 Range/Units 17:10 20:47 07:48 WBC 12.7 H (3.8-10.6) k/uL RBC 3.53 L (3.80-5.40) m/uL Hgb 10.2 L (11.4-16.0) gm/dL MCHC 29.3 L (31.0-37.0) g/dL RDW 16.2 H (11.5-15.5) % Chloride (98-107) mmol/L Carbon Dioxide (22-30) mmol/L BUN (7-17) mg/dL Creatinine (0.52-1.04) mg/dL POC Glucose (mg/dL) 140 H 197 H (75-99) mg/dL AST (14-36) U/L ALT (9-52) U/L Alkaline Phosphatase (38-126) U/L Total Protein (6.3-8.2) g/dL Albumin (3.5-5.0) g/dL Hafth-0-Kppnmvgtlty (99.0-242.0) mg/dL Ceruloplasmin (20.0-60.0) mg/dL Anti-Smooth Muscle Ab (<20) UNITS 04/20/17 Range/Units 07:48 WBC (3.8-10.6) k/uL RBC (3.80-5.40) m/uL Hgb (11.4-16.0) gm/dL MCHC (31.0-37.0) g/dL RDW (11.5-15.5) % Chloride 89 L (98-107) mmol/L Carbon Dioxide 45 H* (22-30) mmol/L BUN 55 H (7-17) mg/dL Creatinine 1.20 H (0.52-1.04) mg/dL POC Glucose (mg/dL) (75-99) mg/dL AST 58 H (14-36) U/L ALT 53 H (9-52) U/L Alkaline Phosphatase 247 H (38-126) U/L Total Protein 5.8 L (6.3-8.2) g/dL Albumin 2.6 L (3.5-5.0) g/dL Bxdbw-3-Fcdgofzbbss (99.0-242.0) mg/dL Ceruloplasmin (20.0-60.0) mg/dL Anti-Smooth Muscle Ab (<20) UNITS Assessment and Plan Plan: Assessment 1 acute exacerbation of chronic diastolic congestive heart failure with secondary pulmonary edema. Echocardiogram showed moderate degree of aortic valve stenosis with regurgitation and mild MR with moderate degree of concentric left ventricular hypertrophy. Left ventricular systolic function with estimated ejection fraction 55-60%. 2 chronic atrial fibrillation maintained on a combination of Cardizem and amiodarone and Eliquis 3 chronic hypoxic respiratory failure maintained on oxygen at 4 liters and cannula. A computed tomography scan of the chest revealed the possibilities of mycoplasma pneumonia, acute interstitial pneumonitis, pulmonary edema, pulmonary hemorrhage, ARDS, pneumocystic pneumonia, bronchiolitis obliterans organizing pneumonia. 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 Estrella. Her chest x-ray and labs were reviewed. She could complete her course of antibiotics and a prednisone taper. Continue diuretics. The patient's overall prognosis remains quite poor and guarded based on the above-mentioned multiple comorbidities.
--- NOTE | 2017-04-20 12:20 | FL ---
EXAMINATION TYPE: FL barium swallow w video DATE OF EXAM: 04/20/2017 MODIFIED SWALLOW / DEGLUTITION STUDY CLINICAL HISTORY: Dysphagia. Concern for subtle and aspiration. TECHNIQUE: Deglutition study is performed utilizing thin liquid barium, honey and nectar thick liqui d barium, barium thick applesauce, and barium coated cracker. COMPARISON: None. FINDINGS: The oral and pharyngeal phases show satisfactory initiation and propagation with the liquid , honey thick, nectar thick, and applesauce consistencies with delayed laryngeal closure and delayed propagation of the barium coated cracker. Normal mastication is seen with solid modalities tested. D eep penetration the level of the vocal cords without aspiration is seen with both the thin and honey thick consistencies. No significant pharyngeal residue was appreciated. IMPRESSION: 1. Deep laryngeal penetration to the level of the vocal cords without aspiration of the thin and kumar y thick consistencies. Delayed initiation and propagation of the barium coated cracker consistency. Please refer to speech therapist notes for further details if necessary.
[2017-04-20 12:25] LABS: Glucose,Whole Blood 142 mg/dL (75-99)
[2017-04-20 13:44] VITALS: BMI 47.5
--- NOTE | 2017-04-20 15:23 | P.PN ---
Subjective This is an 82-year-old female with a previous medical history significant for hypertension and hypertensive cardiovascular disease, chronic diastolic heart failure, history of morbid obesity, history of atrial fibrillation, patient was transferred from [facility] on the [place] yesterday and her the care of Dr. Steward because of increased shortness breath with increased swelling in the left lower extremity, patient also did have a history of right above-knee amputation as well as on, patient was admitted to the hospital because of acute diastolic heart failure and she was started on Lasix 60 minute gram IV push every 12 hours and monitoring her input and output and daily weight. 04/08: Today the patient is feeling a lot better she denies any chest pain she is less short of breath, she is diuresing very well through the Payton catheter, she denies any abdominal pain, nausea, vomiting, her troponin was slightly elevated secondary to demand ischemia without any evidence of acute coronary syndrome. 04/09: Patient is feeling a little better today, she is complaining of pain in the mid epigastric area, she continues to require 6 L oxygen, she is maintained on Lasix 60 mg IV push every 12 hours, we will continue to monitor the patient weight and oxygen situation and follow-up with the patient very closely. 04/10: Patient continues to complain of shortness of breath and is currently on 6 L of nasal cannula but when decreased to 4 L patient's pulse ox is still 96%. Patient denies feeling any improvement today. Nurses concern that patient has some anxiety regarding to the oxygen use. She is currently on Lasix 60 mg IV every 12 hours which will be continued. Payton catheter in place with good urine output. Weight is down 1 kg from yesterday. Repeat chest x-ray shows correlate for diffuse pneumonia versus pulmonary edema. Findings stable. 04/11: Patient continues on Lasix IV 60 every 12 hours. Weight appears to be an accurate she has gained weight from yesterday. Repeat chest x-ray has been ordered for tomorrow by Dr. Martins. Pulse ox is currently 96% on 5 L and patient states she is normally on 4 L at [facility]. Patient feels that her breathing is about the same as yesterday. Payton remains in place with good urine output. 04/12: Patient states that her breathing status is a little bit better from yesterday. Noted that her weight has gone up the last 2 days for which Lasix will be increased to 80 mg every 12 hours. Patient has had good urine output. Patient is having a lot of anxiety for which Xanax will be increased to 4 times daily. Oxygen is to be kept at 4 L which is her home dose. CO2 is at 39. BUN 22 and creatinine 0.88. 04/13: Weight is down 3 kg from yesterday. Sodium is 134, chloride 89, BUN 24 and creatinine 0.92. Pulse ox is 96% on 4 L nasal cannula. Patient denies any chest pain or cough. She states she is still short of breath but feels a little bit better today. She didn't get a skin tear on her right arm yesterday when she went to CAT scan. CAT scan of the chest report states consider mycoplasma pneumonia, acute interstitial pneumonitis, pulmonary edema, posterior hemorrhage, drug reaction and ARDS, pneumocystic pneumonia, bronchiolitis obliterans organizing pneumonia. Hepatosplenomegaly, cholelithiasis. Legionella antigen and mycoplasma testing ordered. Lasix remains at 80 mg every 12 hours. 04/14: Weight is down 2 kg from yesterday with good urine output. She remains on Lasix at 80 mg twice daily. SoluMedrol is a 40 mg every 8 hours. CO2 is 40. Mycoplasma came back negative. Legionella antigen is pending. Dr. Martins has changed her antibiotics to meropenem. Patient is complaining of feeling sleepy. Her shortness of breath is improved today. Anticipate discharge back to [facility] on Monday or Monday. : Patient's doing better this time, no significant complaints, improving shortness of breath and cough, no respiratory events including aspiration Legionella pending results and Mycoplasma IgG and IgM is normal currently on meropenem Dr. Martins. Fidel and and following closely liver function tests is stable, patient has cholelithiasis with hepatosplenomegaly medically, patient 's without any complaints 04/16: Patient's clinical better, [facility], patient completed diuretic treatments here, pulmonary distress are most likely secondary to CHF rather than pneumonia, patient has a 10 day antibiotic, no plans for antibiotic post discharge as per recommendation from Dr. Martins pulmonary chest x-ray shows continued CHF with improving pulmonary edema 04/17: Patient's weight is up 3 kg from yesterday. Her Lasix was changed to 40 mg orally twice daily yesterday we have added in one dose of IV Lasix this morning IV push and Zaroxolyn 5 mg on Monday and Monday. Anuel wraps are to be applied to the left leg. Due to her chronically elevated alkaline phosphatase, ultrasound gallbladder ordered and consult with Dr. Woods. Patient did have cholelithiasis noted on CAT scan of the chest. Legionella antigen and mycoplasma pneumoniae IgG IgM negative. 04/18: Patient has been seen by GI with no plan during admission but will follow- up as an outpatient. Reminded nursing staff to apply Anuel wrap and weigh daily. Repeat chest x-ray has been ordered. Patient will be given additional dose of 40 mg of IV Lasix. 04/19: Acute hepatitis panel and LEANNA screen negative. Liver function tests are slowly improving. He has recommended discontinuing amiodarone which will be done and patient will [facility] basis. Breathing is easier today. She continues to diurese. Patient has completed course of antibiotics. She'll be discharged on tapering dose of prednisone and Lasix at 40 mg twice daily which is increased from previous dose. Also note the pravastatin was previously discontinued. Discharge to [facility] was held. 04/20: Cardiology was reconsulted for pulmonary hypertension and Dr. VALENTINA Bryant has recommended no medication changes. Modified barium swallow has been performed and speech therapy is recommended dental soft with thin liquids. Patient will be discharged to [facility] first thing in the morning. No changes to medication reconciliation. Patient has been cleared for discharge by Dr. Estrella. Objective - Vital Signs Vital signs: Vital Signs Temp 98.3 F 04/20/17 07:00 Pulse 68 04/20/17 07:43 Resp 18 04/20/17 07:00 BP 111/40 04/20/17 07:00 Pulse Ox 96 04/20/17 07:33 Intake & Output 04/19/17 04/20/17 04/20/17 18:59 06:59 18:59 Intake Total 750 650 Output Total 1100 4200 Balance -350 -3550 Weight 118 kg Intake: Oral 750 650 Output: Urine 1100 4200 Uretheral (Payton) 1800 Other: Voiding Method Indwelling Catheter Indwelling Catheter Indwelling Catheter # Bowel Movements 1 1 - Exam General appearance: Present: cooperative, no acute distress - EENT Eyes: Present: anicteric sclerae, edentulous, dentition normal ENT: Present: NA/AT, normal oropharynx - Neck Neck: Present: normal ROM. Absent: lymphadenopathy, other, rigidity, stridor, thyromegaly - Respiratory Respiratory: bilateral: CTA - Cardiovascular Rhythm: regular Heart sounds: normal: S1 Abnormal Heart Sounds: Absent: systolic murmur, diastolic murmur, rub, S3 Gallop , S4 Gallop, click, other - Gastrointestinal General gastrointestinal: Present: soft - Integumentary Integumentary: Present: normal - Musculoskeletal Musculoskeletal: Present: strength equal bilaterally - Psychiatric Psychiatric: Present: A&O x's 3 - Labs CBC & Chem 7: 04/20/17 07:48 04/20/17 07:48 Labs: Abnormal Lab Results - Last 24 Hours (Table) 04/18/17 04/18/17 04/19/17 Range/Units 08:52 08:52 10:57 WBC (3.8-10.6) k/uL RBC (3.80-5.40) m/uL Hgb (11.4-16.0) gm/dL MCHC (31.0-37.0) g/dL RDW (11.5-15.5) % Chloride 91 L (98-107) mmol/L Carbon Dioxide 42 H* (22-30) mmol/L BUN 56 H (7-17) mg/dL Creatinine 1.21 H (0.52-1.04) mg/dL Glucose 114 H (74-99) mg/dL POC Glucose (mg/dL) (75-99) mg/dL AST 75 H (14-36) U/L ALT 62 H (9-52) U/L Alkaline Phosphatase 249 H (38-126) U/L Total Protein 6.1 L (6.3-8.2) g/dL Albumin 2.7 L (3.5-5.0) g/dL Dofev-3-Foajzzxugrv 83.3 L (99.0-242.0) mg/dL Ceruloplasmin 18.9 L (20.0-60.0) mg/dL Anti-Smooth Muscle Ab 20 H (<20) UNITS 04/19/17 04/19/17 04/19/17 Range/Units 12:21 17:10 20:47 WBC (3.8-10.6) k/uL RBC (3.80-5.40) m/uL Hgb (11.4-16.0) gm/dL MCHC (31.0-37.0) g/dL RDW (11.5-15.5) % Chloride (98-107) mmol/L Carbon Dioxide (22-30) mmol/L BUN (7-17) mg/dL Creatinine (0.52-1.04) mg/dL Glucose (74-99) mg/dL POC Glucose (mg/dL) 133 H 140 H 197 H (75-99) mg/dL AST (14-36) U/L ALT (9-52) U/L Alkaline Phosphatase (38-126) U/L Total Protein (6.3-8.2) g/dL Albumin (3.5-5.0) g/dL Kdqiz-8-Pqmuktrxtzw (99.0-242.0) mg/dL Ceruloplasmin (20.0-60.0) mg/dL Anti-Smooth Muscle Ab (<20) UNITS // Range/Units 07:48 WBC 12.7 H (3.8-10.6) k/uL RBC 3.53 L (3.80-5.40) m/uL Hgb 10.2 L (11.4-16.0) gm/dL MCHC 29.3 L (31.0-37.0) g/dL RDW 16.2 H (11.5-15.5) % Chloride (98-107) mmol/L Carbon Dioxide (22-30) mmol/L BUN (7-17) mg/dL Creatinine (0.52-1.04) mg/dL Glucose (74-99) mg/dL POC Glucose (mg/dL) (75-99) mg/dL AST (14-36) U/L ALT (9-52) U/L Alkaline Phosphatase (38-126) U/L Total Protein (6.3-8.2) g/dL Albumin (3.5-5.0) g/dL Jeqbg-0-Dfnbpsivjvc (99.0-242.0) mg/dL Ceruloplasmin (20.0-60.0) mg/dL Anti-Smooth Muscle Ab (<20) UNITS Assessment and Plan Plan: 1. Acute diastolic heart failure. Continue patient on Lasix 40 mg po every 12 hours, monitor input and output and daily weight, monitor the patient's electrolytes, magnesium, echocardiogram was done and that showed moderate aortic valve stenosis with aortic regurgitation and mild mitral regurgitation with a normal ejection fraction 55-60% with moderate concentric left ventricular hypertrophy. Zaroxolyn 5 mg Monday and Monday added and Lasix 40 mg IV push 1. 2. Chronic Atrial fibrillation. Continue patient on Eliquis 5 mg orally twice every day, Cardizem 60 mg orally 3 times every day, amiodarone 200 mg orally once every day. 3. Acute hypoxemic respiratory failure secondary to bibasilar pneumonia, most likely aspiration pneumonia, with acute diastolic heart failure we'll continue treatment as in Paragraph #1 plus antibiotics have been changed by Dr. Martins to meropenem, Solu-Medrol, sputum culture, blood culture, pulmonary consultation and cardiology consultation. 4. UTI with sepsis. Continue meropenem. 5. Hypertension and hypertensive cardiovascular disease. Continue patient on Cardizem 60 mg orally 3 times every day. 6. History of CVA. Stable at this point in time. 7. Hyperlipidemia. Continue pravastatin 20 mg orally once every day. 8. Hypothyroidism. Continue Synthroid 50 mitral gram orally once every day. 9. Peripheral neuropathy. Continue Lyrica 75 mg orally twice every day. 10. Post right dnacg-bwf-beyx amputation. Stable at this time. 11. Gout. Continue allopurinol 100 mg orally once every day. 12. Elevated liver function tests for which ultrasound of gallbladder ordered and consult with Dr. Woods. 13. DVT prophylaxis. Currently on Eliquis. 14. GI prophylaxis. Continue PPI. Discharge plan: [facility] return on Impression and plan of care have been directed as dictated by the signing physician. Amada Cantrell nurse practitioner acting as scribe for signing physician.
[2017-04-20 17:08] LABS: Glucose,Whole Blood 131 mg/dL (75-99)
[2017-04-20 20:40] LABS: Glucose,Whole Blood 184 mg/dL (75-99)
[2017-04-20] MEDS: MONTELUKAST 10 MG TAB PO SCH (21:38)
[2017-04-21] MEDS: LEVOTHYROXINE 50 MCG TAB PO SCH (06:28)
[2017-04-21] MEDS: PREGABALIN 50 MG CAP PO SCH (06:28)
[2017-04-21] MEDS: INSULIN LISPRO (humaLOG) 300 UNIT/3 ML VIAL SQ SCH ×2 (07:36→11:55)
[2017-04-21 07:42] LABS: Glucose,Whole Blood 97 mg/dL (75-99)
[2017-04-21 07:45] LABS: Anisocytosis Slight; CH 30.1; CHCM 30.8; HCT 35.2 % (34.0-46.0); HDW 2.52; HGB 10.2 gm/dL (11.4-16.0); Hypochromasia Slight; MCH 28.4 pg (25.0-35.0); Macrocytosis Slight; Mean Platelet Volume 7.8; RBC 3.59 m/uL (3.80-5.40); RDW 16.3 % (11.5-15.5); WBC 13.3 k/uL (3.8-10.6)
[2017-04-21] MEDS: POTASSIUM CHLORIDE ER 20 MEQ TAB.ER PO SCH (07:46)
[2017-04-21] MEDS: predniSONE 20 MG TAB PO SCH (07:46)
[2017-04-21] MEDS: PANTOPRAZOLE 40 MG TABLET PO SCH (07:46)
[2017-04-21] MEDS: MEROPENEM 1 GM in SODIUM CHLORIDE 0.9% 100 ML IVPB SCH (07:46)
[2017-04-21] MEDS: MAGNESIUM OXIDE 400 MG TAB PO SCH (07:46)
[2017-04-21] MEDS: DILTIAZEM ORAL 60 MG TAB PO SCH (07:46)
[2017-04-21] MEDS: APIXABAN 5 MG TAB PO SCH (07:46)
[2017-04-21] MEDS: ALLOPURINOL 100 MG TAB PO SCH (07:46)
[2017-04-21] MEDS: ALPRAZolam 0.25 MG TAB PO PRN (07:46)
[2017-04-21] MEDS: acetaZOLAMIDE 250 MG TAB PO SCH (07:46)
[2017-04-21] MEDS: FLUTICASONE 50MCG/SPRAY NASAL 16GM EA NOSTRIL SCH (07:50)
[2017-04-21] MEDS: NYSTATIN 100,000 UNIT/GM POWD 15 GM TOPICAL SCH (07:54)
[2017-04-21] MEDS: IPRATROPIUM-ALBUTEROL 3 ML NEB INHALATION SCH (07:55)
[2017-04-21 08:10] VITALS: BP 103/45; PULSE 66; RESP 18; TEMP 97.2
[2017-04-21 08:18] LABS: Calcium 8.5 mg/dL (8.4-10.2); Potassium 3.4 mmol/L (3.5-5.1); Total Bilirubin 0.6 mg/dL (0.2-1.3); Total Protein 5.7 g/dL (6.3-8.2)
[2017-04-21] MEDS: FUROSEMIDE 40 MG TAB PO SCH (08:18)
[2017-04-21] MEDS ORDERED: METOLAZONE 2.5 MG TAB PO SCH (08:30)
--- NOTE | 2017-04-21 11:55 | P.PN ---
Subjective This is an 82-year-old female with a previous medical history significant for hypertension and hypertensive cardiovascular disease, chronic diastolic heart failure, history of morbid obesity, history of atrial fibrillation, patient was transferred [place] [facility] [place] and her the care of Dr. Steward because of increased shortness breath with increased swelling in the left lower extremity, patient also did have a history of right above-knee amputation as well as on, patient was admitted to the hospital because of acute diastolic heart failure and she was started on Lasix 60 minute gram IV push every 12 hours and monitoring her input and output and daily weight. On 04/10/2017 I'm seeing this patient in follow-up. The patient is diuresing nicely with IV Lasix. She has extensive edema in the left lower extremity. Note that she has a below-knee amputation on the right. Shortness of breath is gradually improving. The patient remains on 4-5 L of oxygen nasal cannula to maintain a saturation above 90%. Chest x-ray most consistent with CHF. Underlying pneumonia is felt to be doubtful. No change in mental status. No fever. No chills. No hemoptysis. No pleurisy. Oral intake is diminished. On 04/11/2017 I'm seeing this patient in follow-up. The patient is still on diuretics. The left lower extremity is been wrapped and there is still some residual edema in the left leg. She has an msogi-dks-suiq position on the right. Her net fluid balance is negative more than 4 L over the past 24 hours and overall she has diuresed more than 7-8 L. She is developing some degree of metabolic alkalosis due to diuresis. Her oxygenation is unchanged and the patient is on a 4 L of oxygen nasal cannula her pulse ox on 96%. She rests comfortably in bed. No cough or sputum production. No change in mental status. No fever or chills. No aspiration. The patient remains on Lasix 60 mg IV push every 12 hours. The patient is also on long-term anticoagulation with Eliquis. The patient is on clindamycin for any potential aspiration pneumonia. Urine cultures been negative. Blood culture been negative. The patient is seen again today 04/12/2017 in follow-up on the selective care unit. She is awake and alert in no acute distress. She does have continued high oxygen requirements of 4 L to maintain O2 saturations in the 90s. She has been afebrile. Hemodynamically stable. Her chest x-ray continues to show multifocal airspace disease slightly worse than the right upper lobe. On 04/13/2017 I'm seeing this patient in follow-up. I reviewed the CAT scan of the chest from yesterday. There is diffuse interstitial breath and pulmonary infiltrates and the exact etiology is not clear. Rule out cardiogenic versus noncardiac pulmonary edema. The patient has been diuresed aggressively with IV Lasix. She was receiving 80 mg IV Lasix every 12 hours. She remains a significant amount of negative fluid balance, I would say at least 10 L over the past several days. No prerenal azotemia. Not a threat disturbance. On examination still still adamant this in the left lower extremity. The arms are still edematous. Crackles are seen and appreciated lung bases bilaterally. She still 40s about 2 by nasal cannula and pulse ox is around 96%. Based on her ongoing pulmonary infiltration, I broaden antibiotic coverage and put the patient IV Merrem. She was also started on IV Solu-Medrol. A follow-up chest x -ray will be obtained for tomorrow. Case was discussed with the primary care. No active aspiration although this cannot be completely ruled out. On 04/14/2017, the patient is being seen in follow-up. She still diuresing aggressively and she is still in a negative fluid balance. Today's chest x-ray still showing beta pulmonary infiltrates however I would say there may be some interval improvement in the volume status. The patient is more active and interactive. She is conversing. She denies having any respiratory distress at rest. Left lower extremities improving. Note that the patient has an amputation on the right. No fever. No chills. No chest pain. She is still on oxygen at 4 L/m nasal cannula. She was started on IV Solu-Medrol. She was also started on IV Merrem. She is on long-term anticoagulation. No other significant events overnight. The patient is seen again today 04/15/2017 in follow-up on the regular medical floor. She is currently resting quite comfortably in bed. She did have some Xanax this morning. She does arouse to verbal stimuli. She denies any worsening shortness of breath, cough or congestion. Her chest x-ray shows improved aeration more so on the left. Slight improvement on the right. She remains in a negative balance. There is less peripheral edema. Maintaining good O2 saturations in the high 90s on 4 L/m per nasal cannula. On 04/18/2017 I'm seeing this patient in follow-up. She is resting comfortably in bed. As mentioned earlier the patient developed bilateral on infiltrates for which she was being diuresed aggressively and the same time she was treated with broad-spectrum antibiotics. He continued diuresed well and the neck fluid balance for yesterday was -1.7 L. The patient is on IV Lasix 80 mg every 12 hours. She is on 40s of oxygen nasal cannula. No cough or sputum production. Left lower extremity edema is gradually improving. Chest x-ray from today is still showing CHF with slight improvement in patchy pulmonary edema. Edema is less confluent on the right. She is afebrile. She is a halfway resident. The patient is seen again today 04/17/2017 in follow-up on the regular medical floor. She is awake and alert in no acute distress. She denies any worsening shortness of breath, cough or congestion. She has been switched to oral diuretics. She is maintaining good O2 saturations in the high 90s on 3 L/m per nasal cannula. She is afebrile. Hemodynamically stable. No leukocytosis. Creatinine stable at 0.94. She is seen again today 04/18/2017 in follow-up on the regular medical floor. She remains awake and alert in no acute distress. Her breathing however is a little more labored today as compared to yesterday. Chest x-ray reveals continued evidence of congestive heart failure. Abdominal ultrasound reveals fatty hepatic infiltration along with cholelithiasis. Blood and urine cultures revealed no growth. Her bicarb is at 44 on her electrolyte profile. AST 83, ALT 66, alk phos 283. She is currently in a negative balance. He remains afebrile. Hemodynamically stable. Maintain O2 saturations in the upper 90s on 3 L/m per nasal cannula. The patient is seen again today 04/19/2017 in follow-up on the regular medical floor. She is resting comfortably in bed. She states she is breathing easier today as compared to yesterday. She is diuresing well. She remains in a negative balance. She continues maintaining good O2 saturations in the 90s on 3 L/m per nasal cannula. The patient is seen again today 04/20/2017 in follow-up on the regular medical floor. She is resting comfortably in bed. She denies any worsening shortness of breath cough or congestion. Yesterday's chest x-ray does show improvement in the congestive heart failure. She remains on diuretics. She remains in a negative balance with 4 L output following diuretics today. She is down to 2 L/ m per nasal cannula to maintain O2 saturations in the mid 90s. She's been afebrile. Hemodynamically stable. Creatinine 1.20. Bicarb 45. She remains on Diamox. The patient is seen again today 04/21/2017 in follow-up on the regular medical floor. She is awake and alert in no acute distress. She denies any worsening shortness of breath, cough or congestion. She is maintaining good O2 saturations in the mid to upper 90s on 2 L/m per nasal cannula. She is afebrile. No tachycardia. No tachypnea. She continues to diurese well and remains in a negative balance. Creatinine trending down currently at 1.19. Objective - Vital Signs Vital signs: Vital Signs Temp 97.2 F L 04/21/17 07:00 Pulse 68 04/21/17 08:07 Resp 18 04/21/17 07:00 BP 103/45 04/21/17 07:00 Pulse Ox 96 04/21/17 07:00 Intake & Output 04/20/17 04/21/17 04/21/17 18:59 06:59 18:59 Output Total 1000 1100 Balance -1000 -1100 Weight 118 kg 120 kg Output: Urine 1000 1100 Other: Voiding Method Indwelling Catheter Indwelling Catheter Indwelling Catheter # Voids 1 # Bowel Movements 0 - Exam Head exam was generally normal. There was no scleral icterus or corneal arcus. Mucous membranes were moist.Neck was supple and without jugular venous distension, thyromegaly, or carotid bruits. Carotids were easily palpable bilaterally. There was no adenopathy. Lung sounds are diminished bilaterally. No wheezes. No rhonchi. Heart sounds are irregular, normal S1-S2, there is a prosthesis is a ejection murmur grade 3/6 heard throughout the precordium.Abdominal exam revealed normal bowel sounds. The abdomen was soft, non-tender, and without masses, organomegaly, or appreciable enlargement of the abdominal aorta. The patient has a ventral hernia.Examination of the extremities revealed increase in edema in the left lower extremity and the patient has a below-knee amputation on the right. Neurologically the patient is awake and alert. No focal neurological deficit at this point. - Labs CBC & Chem 7: 04/21/17 06:56 04/21/17 06:56 Labs: Abnormal Lab Results - Last 24 Hours (Table) 04/18/17 04/20/17 04/20/17 Range/Units 08:52 12:21 16:58 WBC (3.8-10.6) k/uL RBC (3.80-5.40) m/uL Hgb (11.4-16.0) gm/dL MCHC (31.0-37.0) g/dL RDW (11.5-15.5) % Potassium (3.5-5.1) mmol/L Chloride (98-107) mmol/L Carbon Dioxide (22-30) mmol/L BUN (7-17) mg/dL Creatinine (0.52-1.04) mg/dL POC Glucose (mg/dL) 142 H 131 H (75-99) mg/dL AST (14-36) U/L ALT (9-52) U/L Alkaline Phosphatase (38-126) U/L Total Protein (6.3-8.2) g/dL Albumin (3.5-5.0) g/dL Albumin (PEP) 2.67 L (3.80-4.90) g/dL Gamma Globulins 1.76 H (0.70-1.50) g/dL Ceruloplasmin 18.9 L (20.0-60.0) mg/dL 04/20/17 04/21/17 04/21/17 Range/Units 20:38 06:56 06:56 WBC 13.3 H (3.8-10.6) k/uL RBC 3.59 L (3.80-5.40) m/uL Hgb 10.2 L (11.4-16.0) gm/dL MCHC 29.0 L (31.0-37.0) g/dL RDW 16.3 H (11.5-15.5) % Potassium 3.4 L (3.5-5.1) mmol/L Chloride 87 L (98-107) mmol/L Carbon Dioxide 47 H* (22-30) mmol/L BUN 56 H (7-17) mg/dL Creatinine 1.19 H (0.52-1.04) mg/dL POC Glucose (mg/dL) 184 H (75-99) mg/dL AST 59 H (14-36) U/L ALT 53 H (9-52) U/L Alkaline Phosphatase 239 H (38-126) U/L Total Protein 5.7 L (6.3-8.2) g/dL Albumin 2.6 L (3.5-5.0) g/dL Albumin (PEP) (3.80-4.90) g/dL Gamma Globulins (0.70-1.50) g/dL Ceruloplasmin (20.0-60.0) mg/dL Assessment and Plan Plan: Assessment 1 acute exacerbation of chronic diastolic congestive heart failure with secondary pulmonary edema. Echocardiogram showed moderate degree of aortic valve stenosis with regurgitation and mild MR with moderate degree of concentric left ventricular hypertrophy. Left ventricular systolic function with estimated ejection fraction 55-60%. 2 chronic atrial fibrillation maintained on a combination of Cardizem and amiodarone and Eliquis 3 chronic hypoxic respiratory failure maintained on oxygen at 4 liters and cannula. A computed tomography scan of the chest revealed the possibilities of mycoplasma pneumonia, acute interstitial pneumonitis, pulmonary edema, pulmonary hemorrhage, ARDS, pneumocystic pneumonia, bronchiolitis obliterans organizing pneumonia. 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 Estrella. She could complete her course of antibiotics and a prednisone taper. Continue diuretics. She could be transferred to the extended care facility today. The patient's overall prognosis remains quite poor and guarded based on the above-mentioned multiple comorbidities.
== END 2017-04-21 11:57 | DRG 871 ==
LOC: EC 04:06 → 4MS4W 05:56 → 6SEL 07:05 → 4MS4W 04-15 06:24
PROVIDERS: ADMIT Internal Medicine; ATTEND Internal Medicine
DX: A41.9 Sepsis, unspecified organism (principal); I50.33 Acute on chronic diastolic (congestive) heart failure; J69.0 Pneumonitis due to inhalation of food and vomit; J96.21 Acute and chronic respiratory failure with hypoxia; E87.3 Alkalosis; I48.1 Persistent atrial fibrillation; I24.8 Other forms of acute ischemic heart disease; G62.9 Polyneuropathy, unspecified; I48.2 Chronic atrial fibrillation; E66.01 Morbid (severe) obesity due to excess calories; E87.1 Hypo-osmolality and hyponatremia; I48.92 Unspecified atrial flutter; N39.0 Urinary tract infection, site not specified; I27.2 Other secondary pulmonary hypertension; E87.5 Hyperkalemia; I08.0 Rheumatic disorders of both mitral and aortic valves; I11.0 Hypertensive heart disease with heart failure; D63.8 Anemia in other chronic diseases classified elsewhere; E03.9 Hypothyroidism, unspecified; E78.5 Hyperlipidemia, unspecified; F41.9 Anxiety disorder, unspecified; J44.9 Chronic obstructive pulmonary disease, unspecified; K21.9 Gastro-esophageal reflux disease without esophagitis; K80.20 Calculus of gallbladder without cholecystitis without obstruction; M10.9 Gout, unspecified; Z79.01 Long term (current) use of anticoagulants; I25.2 Old myocardial infarction; Z79.899 Other long term (current) drug therapy; Z86.73 Personal history of transient ischemic attack (TIA), and cerebral infarction without residual deficits; Z87.440 Personal history of urinary (tract) infections; Z89.511 Acquired absence of right leg below knee; Z89.611 Acquired absence of right leg above knee; Z88.2 Allergy status to sulfonamides; Z88.6 Allergy status to analgesic agent; Z88.1 Allergy status to other antibiotic agents; Z88.5 Allergy status to narcotic agent; Z88.0 Allergy status to penicillin
CPT/HCPCS: 36415; 71010; 71020; 71250; 74230; 76705; 80048; 80053; 80074; 80200; 81001; 82103; 82104; 82105; 82390; 82728; 83516; 83540; 83550; 83605; 83735; 83880; 84165; 84484; 85025; 85027; 85610; 85730; 86038; 86738; 87040; 87086; 87449; 93005; 93306; 94640; 94660; 94760; 96365; 96368; 99285